=== PATIENT | female | born 1930 | race Caucasian/White ===

== ENCOUNTER 2016-12-06 23:20 | Inpatient (IN) | payer MEDICARE, MEDICAID, OTHER ==
[~2016-12-06] VITALS: Ht 152.4 cm; Wt 72.0 kg
[2016-12-06 23:24] VITALS: PULSE 42
[2016-12-06 23:30] VITALS: BP 166/85; PULSE 120; O2SAT 87
[2016-12-06] MEDS ORDERED: SODIUM CHLOR 0.9% 1000 ML INJ 1,000 ML IV ONE (23:33)
[2016-12-06 23:36] VITALS: BP 97/52; PULSE 72
[2016-12-06 23:41] LABS: AUTOMATED NEUTROPHIL # 12.3 TH/MM3 (1.8-7.7); BASOPHIL # 0.1 TH/MM3 (0-0.2); BASOPHIL % 0.5 % (0.0-2.0); EOSINOPHIL # 0.2 TH/MM3 (0-0.4); EOSINOPHIL % 1.2 % (0.0-4.0); HEMATOCRIT 43.4 % (35.0-46.0); LYMPH % 31.4 % (9.0-44.0); LYMPHOCYTE # 6.4 TH/MM3 (1.0-4.8); MEAN CORPUSCULAR HEMOGLOBIN 26.3 PG (27.0-34.0); MEAN CORPUSCULAR HGB CONC 30.3 % (32.0-36.0); MONO % 6.5 % (0.0-8.0); NEUT % 60.4 % (16.0-70.0); PLATELET COUNT 237 TH/MM3 (150-450); RED BLOOD COUNT 4.99 MIL/MM3 (4.00-5.30); RED CELL DISTRIBUTION WIDTH 18.2 % (11.6-17.2); WHITE BLOOD COUNT 20.3 TH/MM3 (4.0-11.0)
[2016-12-06] MEDS ORDERED: EPINEPHrine HCL (1:1000) 1 MG/ML VIAL ONE (23:41)
[2016-12-06 23:45] LABS: HEMO FLAGS AUTO DIFF; I-STAT POTASSIUM 4.3 MMOL/L (3.5-4.9)
[2016-12-06] MEDS ORDERED: SODIUM CHLORIDE 0.9% FLUSH 10 ML FLUSH IVF PRN (23:45)
[2016-12-06 23:46] VITALS: BP 62/35; PULSE 39; RESP 18; O2SAT 87
[2016-12-06 23:53] VITALS: BP 176/86; PULSE 148; O2SAT 94
[2016-12-06 23:54] LABS: APTT (PATIENT) 22.4 SEC (24.3-30.1); INTERNATIONAL NORMALIZED RATIO 0.9 RATIO; PROTHROMBIN TIME - PATIENT 10.4 SEC (9.8-11.6)
[2016-12-07] VITALS (36 sets, daily range): BP systolic 71–110; BP diastolic 51–66; PULSE 15–111; RESP 16–30; TEMP 98.6–103.2; O2SAT 88–100
[2016-12-07] MEDS ORDERED: PIPERACIL-TAZO 4.5 GM PREMIX 100 ML IV STA (00:05)
[2016-12-07] MEDS ORDERED: VANCOMYCIN INJ 1,000 MG in SODIUM CHLOR 0.9% 250 ML INJ 250 ML IV STA (00:05)
[2016-12-07 00:10] LABS: ATYPICAL LYMPHOCYTES 12 % (0-0); BANDS 2 % (0-6); BASOPHILS 1 % (0-2); NEUTROPHIL # MANUAL DIFF 13.6 TH/MM3 (1.8-7.7); POLYS (SEG NEUTROPHILS) 65 % (16-70); SCAN/DIFF FINAL DIFF MANUAL; WBC DIFF SAMPLE 100
[2016-12-07 00:11] LABS: PLATELET ESTIMATE SMEAR NORMAL (NORMAL); PLATELET MORPHOLOGY NORMAL (NORMAL)
[2016-12-07 00:13] LABS: MAGNESIUM 4.2 MG/DL (1.5-2.5)
[2016-12-07 00:14] LABS: BLOOD GAS VENOUS BASE EXCESS -6.1 mmol/L (-2-2); BLOOD GAS VENOUS HCO3 20 mmol/L (22-26); BLOOD GAS VENOUS O2 HGB SAT 46 % (70-76); BLOOD GAS VENOUS PCO2 43 mmHg (44-48); BLOOD GAS VENOUS PO2 29 mmHg (35-40); BLOOD GAS VENOUS pH 7.28 (7.360-7.400); TEMP CORR TO 98.6
[2016-12-07] MEDS ORDERED: SODIUM CHLOR 0.9% 1000 ML INJ 1,000 ML IV ONE (00:15)
[2016-12-07 00:16] LABS: CRITICAL VALUE YES; OXYGEN DEVICE VENTILATOR
[2016-12-07 00:17] LABS: DRAW SITE RFEM; FIO2 100 %; STAT NO; VENT SETTINGS AC/16/500/PEEP5
[2016-12-07 00:21] LABS: BLOOD GAS BASE EXCESS 0.7 mmol/L (-2-2); BLOOD GAS CARBOXYHEMOGLOBIN 1.4 % (0-4); BLOOD GAS HCO3 25 mmol/L (22-26); BLOOD GAS METHEMOGLOBIN 0.3 % (0-2); BLOOD GAS O2 HGB SATURATION 97 % (90-100); BLOOD GAS OXYGEN CONTENT 16.9 Vol % (12.0-20.0); BLOOD GAS PCO2 41 mmHg (38-42); BLOOD GAS PO2 119 mmHG (61-120); BLOOD GAS TOTAL HGB 12.3 G/DL (12.0-16.0); TEMP CORR TO 98.6
[2016-12-07] MEDS ORDERED: MIDAZOLAM HCL 5 MG/ML VIAL (1 ML) ONE ×2 (00:21→00:34)
--- NOTE | 2016-12-07 00:21 | RADRPT ---
EXAM DATE/TIME: 12/06/2016 23:47 [facility] COMPARISON: No previous studies available for comparison. INDICATIONS : E-T tube placement, STEMI Alert. MEDICAL HISTORY : None. SURGICAL HISTORY : None. ENCOUNTER: Initial ACUITY: 1 day PAIN SCORE: Non-responsive. LOCATION: Bilateral chest FINDINGS: ET tube is present with tip in the right main bronchus needs to be withdrawn by 1-2 cm. Slight bilate ral interstitial prominence is seen mainly in the lung bases may represent mild pulmonary edema. Tiny right pleural effusion is suspected. Hiatal hernia may be present and right lung base consolidation airspace in appearance is also suspected. The aorta is tortuous and the pulmonary vascularity appear prominent. Right hilar mass is difficult to exclude. CONCLUSION: Probable mild CHF and there is also consolidation right perihilar area and right lung base. ET tube n eeds to be withdrawn by 1-2 cm. Maryellen Hobson MD on December 07, 2016 at 0:18 Board Certified Radiologist. This report was verified electronically.
[2016-12-07 00:22] LABS: CRITICAL VALUE NO; OXYGEN DEVICE VENTILATOR
[2016-12-07 00:27] LABS: DRAW SITE LFEM; FIO2 100 %; NUMBER OF ARTERIAL PUNCTURES 1; STAT NO; VENT SETTINGS AC/16/500/PEEP5
--- NOTE | 2016-12-07 00:30 | HHI.HP ---
HPI Service Critical Care Medicine Primary Care Physician Unknown Admission Diagnosis cardiac arrest Diagnosis: Travel History International Travel<30 Days: No Contact w/Intl Traveler <30 Da: No Traveled to Known Affected Are: No Sepsis Criteria SIRS Criteria (2 or more): WBC > 59537, < 4000 or > 10% bands Severe Sepsis (+one): Organ Dysfunction, Acute Oliguria/Renal Failure Multiple Organ Dysfunction Syn: Evidence -2 organs failing Criteria Outcome: Meets SIRS criteria History of Present Illness 86 yo WF with PMH of COPD on 2 L home O2, CHF who is brought in by EVAC after initial call for lethargy. EVAC reported that she was in Torsades. They started to administer magnesium sulfate and administered partial dose when the IV blew. She was the shocked for Vtach. She was intubated after receiving Ativan 4 mg IV and etomidate 20 mg IV. She was then noted to be in asystole. She was given epinephrine and had ROSC. EKG upon arrival to the emergency department demonstrated an irregular rhythm that appears to be slow A. fib. Due to concern LBBB a STEMI alert was called. Patient subsequently had a recurrent cardiac arrest where she had bradycardia followed by asystole at 23: 25 for 10 minutes (received Epi x2, bicarb x1 amp, calcium carbonate x1) and then another code at 23:48 for 4 minutes (received epi x3, sodium bicarb x2 amps). Dr. Ball discussed with Dr. Hawley and he cancelled STEMI alert. Patient remains hypotensive post-arrest and is currently on Epinephrine drip and Dr. Ball has placed a R femoral central line. Her daughter states that yesterday patient was complaining of bilateral calf pain (new complaint) and took some Tramadol. Today she was getting ready for bed and ambulating with a walker but was not standing up completely straight and her daughter states "I knew something was wrong". She states that her fingers were cool and that she increased O2 from 2 L to 4L because O2 sat was not picking up. Daughter was urging her to go to the hospital. She then began "staring off" with "eyes flickering" so her daughter called 911. Her daughter states she was speaking with the patient during this time and patient was able to verbally respond saying "I am tired". Of note, patient has had recurrent hospitalizations for UTI and aspiration and has been on a pureed diet with thickened liquids however tonight she did eat some birthday cake for her daughter's birthday. Patient has one prior intubation for COPD in 2002. She was also hospitalized September 09 in [facility] for UTI and pneumonia for 9 days. She then went to rehab and was readmitted to [facility] for sepsis , UTI, pneumonia and was hospitalized for 2 weeks (on pressors for 3-4 days, not intubated). She was discharged to rehab and has now been home at her daughter's house since October 24, 2016. She was started on an unknown antibiotic and had taken one dose tonight. Her daughter states this was started in anticipation of urologic procedure by Dr. Gutierrez scheduled for later this week for intravesicular antibiotics. Patient has also had a cough x2 days. No fever. Her daughter states that she made a living will during a past hospitalization and said "she wanted everything done unless she had no hope of improving or if she was going to be a vegetable. She did not want to be kept alive retirement on a ventilator". Review of Systems ROS Limitations: Clinical Condition, Intubated Past Family Social History Allergies: Coded Allergies: No Known Allergies (Unverified , 12/06/16) Past Medical History COPD on 2 L home O2 (securities supervisor is Dr. Cervantes) CHF (cotton program technician is Dr. Yancey) Tobacco abuse Urinary incontinence Recurrent UTIs Recurrent aspiration Dysphagia on modified diet [place] of hearing PMD is Dr. Casillas Past Surgical History ORIF right ankle ORIF left shoulder Appendectomy Cholecystectomy Right hip arthroplasty Reported Medications Patient's daughter did not have a complete list of medications upon arrival to the ED. She states she will bring them in She recalls patient being on: Advair 250/50 2 puffs inhaled twice a day Bumex 0.5 mg by mouth twice a day KCl 10 mEq by mouth twice a day DuoNeb 4 times a day Family History Her mother of gallbladder cancer Father of intracerebral hemorrhage She has a sister who is living at age 97. Social History She is a long-term smoker who quit smoking in 2002 Does not use alcohol or illicit drugs Uses a walker at baseline She has 2 adult children, a son and a daughter, who were both present in the ED She lives with her daughter Her is in 2001 She has advanced directives that were reportedly filled out in [facility] in [place] Physical Exam Vital Signs Vital Signs Date Time Temp Pulse Resp B/P Pulse Ox O2 Delivery O2 Flow Rate FiO2 12/07/16 00:24 110 16 92/58 98 12/07/16 00:20 109 16 89/51 100 12/07/16 00:16 111 16 105/56 100 Ventilator 12/07/16 00:10 107 16 87/52 88 12/07/16 00:05 100 12/07/16 00:03 111 16 98/56 88 12/06/16 23:53 148 176/86 94 12/06/16 23:46 39 18 62/35 87 12/06/16 23:36 72 97/52 12/06/16 23:30 120 166/85 87 12/06/16 23:24 42 Physical Exam Drips: Epinephrine 2 mcg/m GENERAL: Elderly female who is orotracheally intubated. SKIN: Warm and dry. HEAD: Atraumatic. Normocephalic. EYES: Pupils 5 mm bilaterally and reactive to 2 mm. No scleral icterus. No injection or drainage. ENT: No nasal bleeding or discharge. Mucous membranes pink and moist. NECK: Trachea midline. No JVD. CARDIOVASCULAR: Tachycardic, regular, sinus rhythm on the monitor rate of 102. No murmurs rubs or gallops appreciated. RESPIRATORY: Orotracheally intubated, clear to auscultation without wheezes or Rales. GASTROINTESTINAL: Abdomen very soft without apparent tenderness, bowel sounds hypoactive, no hepato-splenomegaly appreciated : [place] in place with yellow urine output MUSCULOSKELETAL: Extremities without clubbing, cyanosis, or edema. Well-healed Scar overlying medial aspect of right ankle NEUROLOGICAL: Has facial grimace to central noxious stimuli, no eye opening, pupils reactive, positive cough, positive gag , withdrew without extremities to noxious stimuli, no abnormal response to Babinski, no clonus She was reexamined upon arrival to the [facility]. She did open her eyes to noxious stimuli and localized with BUE Laboratory Laboratory Tests Test 12/06/16 12/06/16 23:28 23:44 Prothrombin Time 10.4 Prothromb Time International 0.9 Ratio Activated Partial 22.4 Thromboplast Time White Blood Count 20.3 Red Blood Count 4.99 Hemoglobin 13.1 Bedside Hemoglobin 15.0 Hematocrit 43.4 Bedside Hematocrit 44.0 Mean Corpuscular Volume 87.0 Mean Corpuscular Hemoglobin 26.3 Mean Corpuscular Hemoglobin 30.3 Concent Red Cell Distribution Width 18.2 Platelet Count 237 Mean Platelet Volume 9.5 Neutrophils (%) (Auto) 60.4 Lymphocytes (%) (Auto) 31.4 Monocytes (%) (Auto) 6.5 Eosinophils (%) (Auto) 1.2 Basophils (%) (Auto) 0.5 Neutrophils # (Auto) 12.3 Lymphocytes # (Auto) 6.4 Monocytes # (Auto) 1.3 Eosinophils # (Auto) 0.2 Basophils # (Auto) 0.1 CBC Comment AUTO DIFF Differential Total Cells 100 Counted Neutrophils % (Manual) 65 Band Neutrophils % 2 Lymphocytes % 17 Monocytes % 3 Basophils % 1 Neutrophils # (Manual) 13.6 Differential Comment FINAL DIFF MANUAL Atypical Lymphocytes 12 Platelet Estimate NORMAL Platelet Morphology Comment NORMAL Red Cell Morphology Comment NORMAL Bedside Sodium 139 Bedside Potassium 4.3 Bedside Chloride 104 Bedside Blood Urea Nitrogen 24 Bedside Creatinine 1.1 Bedside Glucose 291 Calcium Level 8.7 Magnesium Level 4.2 Total Creatine Kinase 62 Troponin I 0.03 B-Type Natriuretic Peptide 118 Blood Gas Puncture Site RFEM Blood Gas Patient Temperature 98.6 Venous Blood pH 7.28 Venous Blood Partial Pressure 43 CO2 Venous Blood Partial Pressure 29 O2 Venous Blood HCO3 20 Venous Blood Oxygen Saturation 46 Venous Blood Oxygen Content 8.0 Venous Blood Base Excess -6.1 Oxygen Delivery Device VENTILATOR Blood Gas Ventilator Setting AC/16/500/PEEP5 Blood Gas Inspired Oxygen 100 Result Diagram: 12/06/16 6927 Assessment and Plan Assessment and Plan NEURO: Acute encephalopathy Hard of hearing - hearing aid in place left ear Fentanyl for analgosedation. Versed prn sedation. Target RASS -[address] brain as part of workup for cardiac arrest demonstrated chronic and small vessel ischemic changes with no hemorrhage Daily sedation vacation Upon reexamination patient opened her eyes and made purposeful movements with bilateral upper extremities towards endotracheal tube. No focal neurologic deficit is apparent. Would avoid induced therapeutic hypothermia in this patient at this time due to hemodynamic instability with recurrent cardiac arrest, concern for sepsis, spontaneously improving neurologic exam RESP: Acute respiratory failure COPD with 2 L home oxygen requirement Tobacco abuse Bronchiectasis Orotracheally intubated by EVAC prior to arrival with ETT near right mainstem , I have asked RT to pull ETT back 2 cm. Repeat CXR in am. ACV TV 450 R 22 PEEP 5icu v FIO2 100, f/u ABG. Chest x-ray 12/06/16ET tube is at right mainstem. Opacification right lower lobe with complete, it right pleural effusion, tortuous appearing aorta CT pulmonary angiogram - No PE. Right lower lobe consolidation and bronchiectasis. LLL consolidation. DuoNeb every 6 hours. Albuterol every 2 hours as needed. Daily SBT CV: Cardiac arrest - reportedly presenting rhythm of Torsades/V tach per EVAC. Asystole in ED x2 Chronic systolic heart failure Patient had Torsades/Vtach per EVAC but no shockable rhythm in ED. Will review complete med list when available to evalute for risk of Torsades. QTc not prolonged on EKG. Her presentation appears concerning for aspiration pneumonia and possible respiratory arrest given her 2 day h/o cough, hypoxia, and presence of sepsis. Will give ASA. Will inititate antiarrhythmic if note Vtach on monitoring. Serial cardiac markers, obtain 2-D echo, consult cardiology and followup recommendations. Norepinephrine to maintain mean arterial pressure greater than 65. Placed on Uli Trac for hemodynamic monitoring as she is no longer having significant ectopy. Wean off epinephrine. Serial lactic acid GI: Dysphagia Hiatal hernia Patient is on a modified diet (pured with thickened liquids). Will need speech therapy to evaluate swallow postextubation. FEN/RENAL: Acute kidney injury Hypermagnesemia (following Magnesium administration) Monitor intake and output, monitor electrolytes, replace electrolytes as indicated Received IV contrast 12/07. AVoid nephrotoxins. ID: Leukocytosis Acute aspiration pneumonia h/o recurrent UTI (uncertain MDRO history) Chest x-ray with right lower lobe infiltrate CT PA with RLL consolidation and bronchiectasis. Send sputum culture. Followup blood and urine culture. Empiric coverage with Zosyn, Vancomycin. HEME: Monitor CBC ENDO: Acute hyperglycemia Low-dose insulin sliding scale with bedside glucose every 6 hours PROPH: Protonix 40 mg IV daily for stress ulcer prophylaxis. SCDs for DVT prophylaxis. Heparin 5000 units subcutaneous twice a day for DVT prophylaxis ACCESS: Right femoral central venous line placed by Dr. Ball 12/07 #1 left femoral art line placed 12/07 #1 Patient's daughter and son were updated at bedside. They indicated that patient is full code Discussed with ED RN, discussed with ICU charge preparation techniciancareer coordinator time 60 minutes exclusive of separately billed procedures Ame Heck MD December 07, 2016 00:30
[2016-12-07] MEDS ORDERED: MIDAZOLAM HCL 2 MG/2 ML VIAL IV PUSH ONE (01:15)
[2016-12-07] MEDS ORDERED: RESP: ALBUTEROL 2.5 MG/3 ML NEB (PRN) INH (01:30)
[2016-12-07] MEDS ORDERED: fentaNYL DRIP 250 ML IV SCH (01:30)
[2016-12-07] MEDS ORDERED: MISCELLANEOUS NURSING INFORMATION XX SCH (01:30)
[2016-12-07] MEDS ORDERED: CHLORHEXIDINE GLUCONATE 2 % 1 PACK (2 CLOTHS) TOP PRN (01:30)
[2016-12-07] MEDS ORDERED: SODIUM CHLORIDE 0.9% FLUSH 10 ML FLUSH PRN (01:30)
[2016-12-07 01:32] LABS: BACTERIA, URINE RARE /hpf; BLOOD, URINE NEG (NEG); CALCIUM OXALATE CRYSTALS,URINE RARE /hpf; GLUCOSE,URINE NEG (NEG); HYALINE CAST, URINE INNUM /lpf (RARE); KETONE, URINE NEG (NEG); MUCUS URINE FEW /lpf (OCC); NITRITE,URINE NEG (NEG); PH, URINE 5.5 (5.0-8.5); SQUAMOUS EPITHELIAL CELL URINE 1 /hpf (0-5); URINE COLOR YELLOW (YELLW/STRAW)
[2016-12-07 01:33] LABS: COMMENT (UR) CATH-CULTURE IND; CULTURE IF INDICATED CATH CULTURE IND
[2016-12-07] MEDS ORDERED: EPINEPHrine (1:1000) INJ 2 MG in DEXTROSE 5% IN WATER INJ 248 ML IV SCH ×2 (01:45)
[2016-12-07 02:11] LABS: BLOOD GAS BASE EXCESS 2.1 mmol/L (-2-2); BLOOD GAS CARBOXYHEMOGLOBIN 1.5 % (0-4); BLOOD GAS HCO3 26 mmol/L (22-26); BLOOD GAS METHEMOGLOBIN 0.5 % (0-2); BLOOD GAS O2 HGB SATURATION 93 % (90-100); BLOOD GAS OXYGEN CONTENT 16.2 Vol % (12.0-20.0); BLOOD GAS PCO2 40 mmHg (38-42); BLOOD GAS PO2 72 mmHG (61-120); BLOOD GAS TOTAL HGB 12.4 G/DL (12.0-16.0); CRITICAL VALUE NO; TEMP CORR TO 98.6
[2016-12-07 02:12] LABS: DRAW SITE LT FEMORAL; FIO2 100 %; NUMBER OF ARTERIAL PUNCTURES 2; OXYGEN DEVICE PRVC/AC; STAT YES
[2016-12-07] MEDS ORDERED: Vancomycin Consult Pharmacy 1 EA OTHER SCH (02:15)
--- NOTE | 2016-12-07 02:25 | PD ---
HPI Chief Complaint: Altered Mental Status Time Seen by Provider: 23:31 Travel History International Travel<30 days: No Contact w/Intl Traveler<30days: No Traveled to known affect area: No History of Present Illness HPI 86 yo female was brought in by EVAC after initial call for altered mental status by sergo. EVAC reported that she was placed on the monitor upon arrival and was in Torsades. They started to administer magnesium sulfate and administered partial dose when the IV blew. She was then shocked for Vtach times 2. She was intubated after receiving Ativan 4 mg IV and etomidate 20 mg IV. She was then noted to be in asystole. She was given epinephrine and had ROSC after one round and CPR. Patient unable to provide history on initial history given critical condition. History obtained from ambulance team [facility] Past Medical History Narrative Medical Daughter states CHF, COPD, recent sepsis and frequent UTIs Medical History: Unable to Obtain Tetanus Vaccination: Unknown ?: Unknown Past Surgical History Surgical History: Unable to Obtain Social History Alcohol Use: No Tobacco Use: No Substance Use: No Allergies-Medications (Allergen,Severity, Reaction): Coded Allergies: No Known Allergies (Unverified , 12/06/16) Review of Systems ROS Limitations: Clinical Condition Physical Exam Exam Limitations: Clinical Condition Narrative General: In severe distress, focused exam performed Skin: No large rash, cool extremities Neck: Trachea midline Cardiovascular: Regular rate and rhythm Respiratory: Coarse bilaterally with endotracheal tube in place Abdomen: Soft, nondistended Neuro: Unresponsive Data Data Last Documented VS Vital Signs Date Time Temp Pulse Resp B/P Pulse Ox O2 Delivery O2 Flow Rate FiO2 12/07/16 00:10 107 16 87/52 88 12/07/16 00:05 100 12/06/16 23:20 15.00 Orders Troponin I (12/06/16 23:33) Ckmb (Isoenzyme) Profile (12/06/16 23:33) Complete Blood Count With Diff (12/06/16 23:33) I-Stat Profile (12/06/16 23:33) I-Stat Creatinine (12/06/16 23:33) Calcium (12/06/16 23:33) Magnesium (Mg) (12/06/16 23:33) Prothrombin Time / Inr (Pt) (12/06/16 23:33) Act Partial Throm Time (Ptt) (12/06/16 23:33) B-Type Natriuretic Peptide (12/06/16 23:33) Chest, Single Ap (12/06/16 23:33) Electrocardiogram (12/06/16 23:33) Oxygen Administration (12/06/16 23:33) Iv Access Insert/Monitor (12/06/16 23:33) Oximetry (12/06/16 23:33) Sodium Chlor 0.9% 1000 Ml Inj (Ns 1000 M (12/06/16 23:33) Sodium Chloride 0.9% Flush (Ns Flush) (12/06/16 23:45) Arterial Blood Gas (Abg) (12/06/16 ) Epinephrine (1:1000) Inj (Adrenalin (1:1 (12/07/16 01:45) Epinephrine (1:1000) Inj (Adrenalin (1:1 (12/06/16 23:41) Lactic Acid Sepsis Protocol (12/07/16 00:03) Urinalysis - C+S If Indicated (12/07/16 00:03) Blood Culture (12/07/16 00:03) Sodium Chlor 0.9% 1000 Ml Inj (Ns 1000 M (12/07/16 00:15) Vancomycin Inj (Vancomycin Inj) (12/07/16 00:05) Piperacil-Tazo 4.5 Gm Premix (Zosyn 4.5 (12/07/16 00:05) Admit Order (Ed Use Only) (12/07/16 00:09) Labs Laboratory Tests Test 12/06/16 12/06/16 12/06/16 23:28 23:44 23:54 Prothrombin Time 10.4 SEC Prothromb Time International 0.9 RATIO Ratio Activated Partial 22.4 SEC Thromboplast Time White Blood Count 20.3 TH/MM3 Red Blood Count 4.99 MIL/MM3 Hemoglobin 13.1 GM/DL Bedside Hemoglobin 15.0 G/DL Hematocrit 43.4 % Bedside Hematocrit 44.0 % Mean Corpuscular Volume 87.0 FL Mean Corpuscular Hemoglobin 26.3 PG Mean Corpuscular Hemoglobin 30.3 % Concent Red Cell Distribution Width 18.2 % Platelet Count 237 TH/MM3 Mean Platelet Volume 9.5 FL Neutrophils (%) (Auto) 60.4 % Lymphocytes (%) (Auto) 31.4 % Monocytes (%) (Auto) 6.5 % Eosinophils (%) (Auto) 1.2 % Basophils (%) (Auto) 0.5 % Neutrophils # (Auto) 12.3 TH/MM3 Lymphocytes # (Auto) 6.4 TH/MM3 Monocytes # (Auto) 1.3 TH/MM3 Eosinophils # (Auto) 0.2 TH/MM3 Basophils # (Auto) 0.1 TH/MM3 CBC Comment AUTO DIFF Differential Total Cells 100 Counted Neutrophils % (Manual) 65 % Band Neutrophils % 2 % Lymphocytes % 17 % Monocytes % 3 % Basophils % 1 % Neutrophils # (Manual) 13.6 TH/MM3 Differential Comment FINAL DIFF MANUAL Atypical Lymphocytes 12 % Platelet Estimate NORMAL Platelet Morphology Comment NORMAL Red Cell Morphology Comment NORMAL D-Dimer Quantitative (PE/DVT) 13.34 MG/L FEU Bedside Sodium 139 MMOL/L Bedside Potassium 4.3 MMOL/L Bedside Chloride 104 MMOL/L Bedside Blood Urea Nitrogen 24 MG/DL Bedside Creatinine 1.1 MG/DL Bedside Glucose 291 MG/DL Calcium Level 8.7 MG/DL Phosphorus Level 3.7 MG/DL Magnesium Level 4.2 MG/DL Total Creatine Kinase 62 U/L Troponin I 0.03 NG/ML B-Type Natriuretic Peptide 118 PG/ML Blood Gas Puncture Site RFEM LFEM Blood Gas Patient Temperature 98.6 98.6 Venous Blood pH 7.28 Venous Blood Partial Pressure 43 mmHg CO2 Venous Blood Partial Pressure 29 mmHg O2 Venous Blood HCO3 20 mmol/L Venous Blood Oxygen Saturation 46 % Venous Blood Oxygen Content 8.0 Vol % Venous Blood Base Excess -6.1 mmol/L Oxygen Delivery Device VENTILATOR VENTILATOR Blood Gas Ventilator Setting AC/16/500/PEEP5 AC/16/500/PEEP5 Blood Gas Inspired Oxygen 100 % 100 % Blood Gas HCO3 25 mmol/L Blood Gas Base Excess 0.7 mmol/L Blood Gas Oxygen Saturation 97 % Arterial Blood pH 7.40 Arterial Blood Partial 41 mmHg Pressure CO2 Arterial Blood Partial 119 mmHG Pressure O2 Arterial Blood Oxygen Content 16.9 Vol % Arterial Blood 1.4 % Carboxyhemoglobin Arterial Blood Methemoglobin 0.3 % Blood Gas Hemoglobin 12.3 G/DL MDM Medical Decision Making Medical Screen Exam Complete: Yes Emergency Medical Condition: Yes Medical Record Reviewed: Yes (no records here) Interpretation(s) Initial EKG showed interventricular rhythm that appeared irregular with concern for elevation in inferior leads that was more pronounced on the monitor- discussed with Dr. Marshall and he reviewed images and history and STEMI alert was canceled CBC & BMP Diagram 12/06/16 23:28 Last 24 hours Impressions Chest X-Ray 12/06/16 6253 Signed Impressions: Service Date/Time: Tuesday, December 06, 2016 23:47 - CONCLUSION: Probable mild CHF and there is also consolidation right perihilar area and right lung base. ET tube needs to be withdrawn by 1-2 cm. Maryellen Hobson MD Endotracheal tube was withdrawn after chest x-ray review During code vbg showed pH of 7.287 additional amp of bicarbonate was given in addition to to prior exams during code istats noted abg after resuscitation shows no significant acidosis with good PO2 and PCO2 Differential Diagnosis CA, septic shock, hemorrhagic shock, cardiogenic shock, intracranial bleed, renal failure with electrolyte abnormality... Narrative Course Patient arrived with return of spontaneous circulation after asystole arrest with initial torsades and V. tach. Initial ER EKG was concerning for ST elevation in inferior leads so STEMI alert was called. Patient subsequently had bradycardia with 0.5 mg of atropine given 2 then recurrent cardiac arrest where she had pea and received Epi x2, bicarb x1 amp, calcium carbonate x1 and then another pea code at 23:48 for 4 minutes (received epi x3, sodium bicarb x2 amps). Patient remained hypotensive post-arrest and I started Epinephrine drip and I placed a right femoral central line for further infusion after discussion with daughter that she was wanting to proceed with aggressive care. Dr. Marshall reviewed EKG and STEMI alert was canceled. Daughter also provided history and stated that she has been hospitalized at [facility] on multiple occasions for UTI and sepsis. Critical Care Narrative Aggregate critical care time was 95 minutes. Time to perform other separately billable procedures was not included in the critical care time. My time did not include minutes spent treating any other patients simultaneously or on activities that did not directly contribute to the patient's treatment. The services I provided to this patient were to treat and/or prevent clinically significant deterioration that could result in: I provided critical care services requiring my management, as noted below: Chart data review, documentation time, medication orders and management, vital sign assessments/reviewing monitor data, ordering and reviewing lab tests, ordering and interpreting/reviewing x-rays and diagnostic studies, care of the patient and discussion of the patient with the admitting physicians. Procedures Procedure Narrative CENTRAL VENOUS LINE placed after discussion with daughter: The site was prepped with ChloraPrep and sterilely draped. Patient given Versed. The deep vein was cannulated using normal Seldinger technique. A central line was placed in the right femoral site and secured with simple interrupted suture. The site was sterilely dressed. Sepsis Criteria SIRS Criteria (2 or more): Temp > 100.9 or < 96.8, WBC > 39466, < 4000 or > 10 % bands Sepsis Criteria (SIRS+source): Infect source susp/known Severe Sepsis (+one): Lactate >2 Septic Shock Criteria: Lactic acid >=4 Criteria Outcome: Meets septic shock criteria Physician Communication Physician Communication dr marshall reviewed ekg and stated unsure exact but not STEMI on review dr wiggins agrees to admit Diagnosis Primary Impression: Cardiopulmonary arrest with successful resuscitation Additional Impressions: Septic shock PEA (Pulseless electrical activity) Bradycardia Lactic acidosis Admitting Information Admitting Physician Requests: Admit Italia Ball MD December 07, 2016 02:25
[2016-12-07] MEDS ORDERED: IOHEXOL 350 MG/ML 10 ML VIAL (for RAD DIAG) IV ONE (02:32)
--- NOTE | 2016-12-07 02:36 | RADRPT ---
EXAM DATE/TIME: 12/07/2016 02:21 [facility] COMPARISON: No previous studies available for comparison. INDICATIONS : Altered mental status. Post-code. RADIATION DOSE: 56.35 CTDIvol (mGy) MEDICAL HISTORY : Congestive hearrt failure. Chronic obstructive pulmonary disease. SURGICAL HISTORY : None. ENCOUNTER: Initial ACUITY: 1 day PAIN SCALE: Non-responsive LOCATION: cranial TECHNIQUE: Multiple contiguous axial images were obtained of the head. Using automated exposure control and adj ustment of the mA and/or kV according to patient size, radiation dose was kept as low as reasonably a chievable to obtain optimal diagnostic quality images. FINDINGS: There is no evidence for intracranial hemorrhage, mass effect, mass lesions, or edema. The visualize d bony structures appear intact. Moderate degree of brain atrophy is seen. Moderate periventricular white matter changes are seen nonspecific mostly consistent with chronic small vessel ischemic change s. There are no signs of acute infarction for technique. CONCLUSION: Chronic and small vessel ischemic changes without any evidence for acute hemorrhage o r mass effect. Maryellen Hobson MD on December 07, 2016 at 2:33 Board Certified Radiologist. This report was verified electronically.
--- NOTE | 2016-12-07 02:41 | RADRPT ---
EXAM DATE/TIME: 12/07/2016 02:27 [facility] COMPARISON: No previous studies available for comparison. INDICATIONS : Respiratory distress. IV CONTRAST: 75 cc Omnipaque 350 (iohexol) IV RADIATION DOSE: 13.11 CTDIvol (mGy) MEDICAL HISTORY : None SURGICAL HISTORY : None. ENCOUNTER: Initial ACUITY: 1 day PAIN SCALE: Non-responsive LOCATION: chest TECHNIQUE: Volumetric scanning of the chest was performed using a pulmonary embolism protocol MIP images were re constructed. Using automated exposure control and adjustment of the mA and/or kV according to patien t size, radiation dose was kept as low as reasonably achievable to obtain optimal diagnostic quality images. FINDINGS: There is no evidence for PE for technique. There is airspace consolidation in both lung bases worse o n the right. CONCLUSION: Bibasilar consolidation worse on the right. Maryellen Hobson MD on December 07, 2016 at 2:39 Board Certified Radiologist. This report was verified electronically.
[2016-12-07 03:02] LABS: LACTIC ACID GHOST NOT REPORTABLE
[2016-12-07] MEDS: CHLORHEXIDINE GLUCONATE 2 % 1 PACK (2 CLOTHS) TOP SCH (03:34)
[2016-12-07] MEDS: SODIUM CHLOR 0.9% 1000 ML INJ 1,000 ML IV SCH ×2 (03:34→11:43)
[2016-12-07] MEDS ORDERED: ATROPINE SULFATE 1 MG/10 ML SYRINGE IV ONE (05:00)
[2016-12-07] MEDS ORDERED: SODIUM BICARBONATE 8.4% INJ 50 MEQ/50 ML SYR IV ONE (05:00)
[2016-12-07] MEDS ORDERED: EPINEPHrine HCL (1:10,000) 1 MG/10 ML SYRINGE IV ONE (05:00)
[2016-12-07] MEDS ORDERED: CALCIUM CHLORIDE 10% SOLN 1 GRAM/10 ML SYR IV ONE (05:00)
[2016-12-07] MEDS: NOREPINEPHRINE-DEXTROSE DRIP 250 ML IV SCH ×2 (05:42→10:40)
[2016-12-07] MEDS ORDERED: TERBUTALINE INJ 1 MG/ML AMP SQ PRN (05:45)
--- NOTE | 2016-12-07 05:55 | PD.PROCEDR ---
Procedure Note Procedure DATE: 12/07/16 PROCEDURE: Left femoral arterial catheter placement INDICATION: Hemodynamic monitoring of shock. DETAILS OF PROCEDURE The patient was placed in supine position. The skin was cleansed with Chloraprep. Additional barrier precautions included large sterile drape, sterile gloves, sterile gown, face mask, and hat. 1% lidocaine was used for local anesthesia. Under direct ultrasound guidnce and on the 2nd attempt, the artery was accessed with an introducer needle. The guide wire was advanced. Using Seldinger technique 16 gauge arterial catheter was placed. The guide wire was removed. The catheter was connected to a transducer line and flushed with saline. The video monitor displayed normal arterial wave forms. The catheter was secured with 2-0 silk. A sterile dressing with antibiotic disc was applied. ESTIMATED BLOOD LOSS: minimal COMPLICATIONS: None Ame Heck MD December 07, 2016 05:55
--- NOTE | 2016-12-07 07:54 | HHI.CCPN ---
Subjective Remarks/Hospital Course 86 yo WF with PMH of COPD on 2 L home O2, CHF who is brought in by [facility] after initial call for lethargy. [facility] reported that she was in Torsades. They started to administer magnesium sulfate and administered partial dose when the IV blew. She was the shocked for Vtach. She was intubated after receiving Ativan 4 mg IV and etomidate 20 mg IV. She was then noted to be in asystole. She was given epinephrine and had ROSC. EKG upon arrival to the emergency department demonstrated an irregular rhythm that appears to be slow A. fib. Due to concern LBBB a STEMI alert was called. Patient subsequently had a recurrent cardiac arrest where she had bradycardia followed by asystole at 23: 25 for 10 minutes (received Epi x2, bicarb x1 amp, calcium carbonate x1) and then another code at 23:48 for 4 minutes (received epi x3, sodium bicarb x2 amps). Dr. Ball discussed with Dr. Hawley and he cancelled STEMI alert. Patient remains hypotensive post-arrest and is currently on Epinephrine drip and Dr. Ball has placed a R femoral central line. Her daughter states that yesterday patient was complaining of bilateral calf pain (new complaint) and took some Tramadol. Today she was getting ready for bed and ambulating with a walker but was not standing up completely straight and her daughter states "I knew something was wrong". She states that her fingers were cool and that she increased O2 from 2 L to 4L because O2 sat was not picking up. Daughter was urging her to go to the hospital. She then began "staring off" with "eyes flickering" so her daughter called 911. Her daughter states she was speaking with the patient during this time and patient was able to verbally respond saying "I am tired". Of note, patient has had recurrent hospitalizations for UTI and aspiration and has been on a pureed diet with thickened liquids however tonight she did eat some birthday cake for her daughter's birthday. Patient has one prior intubation for COPD in 2002. She was also hospitalized September 09 in [facility] for UTI and pneumonia for 9 days. She then went to rehab and was readmitted to [facility] for sepsis , UTI, pneumonia and was hospitalized for 2 weeks (on pressors for 3-4 days, not intubated). She was discharged to rehab and has now been home at her daughter's house since October 24, 2016. She was started on an unknown antibiotic and had taken one dose tonight. Her daughter states this was started in anticipation of urologic procedure by Dr. Gutierrez scheduled for later this week for intravesicular antibiotics. Patient has also had a cough x2 days. No fever. Her daughter states that she made a living will during a past hospitalization and said "she wanted everything done unless she had no hope of improving or if she was going to be a vegetable. 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 SUBJ 12/07: Remains intubated, not on sedation. epinephrine weaned off. Levophed at 5 mcg/min. Opens eyes to stimulation. Weakly follows commands. Family at bedside. Cardiac arrest possible not primary but secondary to severe walt pneumonia, sev sepsis and hypoxia Objective Vital Signs Date Time Temp Pulse Resp B/P Pulse Ox O2 Delivery O2 Flow Rate FiO2 12/07/16 06:00 93 12/07/16 06:00 24 110/51 100 101/58 12/07/16 05:08 100 12/07/16 04:00 98.8 12/07/16 01:45 Ventilator 12/06/16 23:20 15.00 Result Diagram: 12/06/16 2328 Other Results Laboratory Tests Test 12/06/16 12/06/16 12/07/16 23:44 23:54 01:59 Blood Gas Puncture Site RFEM LFEM LT FEMORAL Blood Gas Patient Temperature 98.6 98.6 98.6 Venous Blood pH 7.28 (7.360-7.400) Venous Blood Partial Pressure 43 mmHg (44-48) CO2 Venous Blood Partial Pressure 29 mmHg (35-40) O2 Venous Blood HCO3 20 mmol/L (22-26) Venous Blood Oxygen Saturation 46 % (70-76) Venous Blood Oxygen Content 8.0 Vol % (9.0-17.0) Venous Blood Base Excess -6.1 mmol/L (-2-2) Oxygen Delivery Device VENTILATOR VENTILATOR PRVC/AC Blood Gas Ventilator Setting AC/16/500/PEEP5 AC/16/500/PEEP5 Blood Gas Inspired Oxygen 100 % 100 % 100 % Blood Gas HCO3 25 mmol/L 26 mmol/L (22-26) (22-26) Blood Gas Base Excess 0.7 mmol/L 2.1 mmol/L (-2-2) (-2-2) Blood Gas Oxygen Saturation 97 % (90-100) 93 % (90-100) Arterial Blood pH 7.40 7.43 (7.380-7.420) (7.380-7.420) Arterial Blood Partial 41 mmHg (38-42) 40 mmHg (38-42) Pressure CO2 Arterial Blood Partial 119 mmHG 72 mmHG Pressure O2 (61-120) (61-120) Arterial Blood Oxygen Content 16.9 Vol % 16.2 Vol % (12.0-20.0) (12.0-20.0) Arterial Blood 1.4 % (0-4) 1.5 % (0-4) Carboxyhemoglobin Arterial Blood Methemoglobin 0.3 % (0-2) 0.5 % (0-2) Blood Gas Hemoglobin 12.3 G/DL 12.4 G/DL (12.0-16.0) (12.0-16.0) Objective Remarks Drips: Norepinephrine 5 mcg/m GENERAL: Elderly female who is orotracheally intubated. SKIN: Warm and dry. HEAD: Atraumatic. Normocephalic. EYES: Pupils 5 mm bilaterally and reactive to 2 mm. No scleral icterus. No injection or drainage. ENT: No nasal bleeding or discharge. Mucous membranes pink and moist. NECK: Trachea midline. No JVD. CARDIOVASCULAR: Tachycardic, regular, sinus rhythm. No murmurs rubs or gallops appreciated. QTC normal on EKG RESPIRATORY: Orotracheally intubated, clear to auscultation without wheezes or Rales. GASTROINTESTINAL: Abdomen soft without apparent tenderness, bowel sounds hypoactive, no hepato-splenomegaly appreciated : [place] in place with yellow urine output MUSCULOSKELETAL: Extremities without clubbing, cyanosis, or edema. Well-healed Scar overlying medial aspect of right ankle NEUROLOGICAL: Opens eyes to stimulation. Weakly follows commands by squeezing hands, pupils reactive. Moving all extremities spontaneously A/P Assessment and Plan NEURO: Acute encephalopathy Hard of hearing - hearing aid in place left ear Fentanyl for analgosedation. Versed prn sedation. Currently off all sedation Target RASS -2. Daily sedation vacation CT brain demonstrated chronic and small vessel ischemic changes with no hemorrhage Improving neuro exam. There was indication for induced therapeutic hypothermia on arrival RESP: Acute hypoxemia respiratory failure Bilateral lower lobe pneumonia R>L Chronic aspiration COPD with 2 L home oxygen requirement Tobacco abuse Orotracheally intubated by [facility] prior to arrival wit ETT near right mainstem, now pulled back ACV TV 450 R 22 PEEP 5. Titrate FiO2 to keep SaO2>88% DuoNeb q6 and PRN ABX Zosyn, vanc and azithromycin Consult pulmonology Dr. Richter CV: Cardiac arrest - reportedly presenting rhythm of Torsades/V tach per [facility]. Asystole in ED x2 Chronic systolic heart failure Opacification right lower lobe with complete, it right pleural effusion, tortuous appearing aorta Serial cardiac markers, obtain 2-D echo, consult cardiology Cardiac arrest appears secondary to severe pneumonia, hypoxia and sepsis GI: Dysphagia Hiatal hernia NPO. IV Protonix Patient is on a modified diet (pured with thickened liquids). Will need speech therapy to evaluate swallow postextubation FEN/RENAL: Acute kidney injury Hypomagnesemia Monitor I/O ID: Septic shock Multilobar pneumonia - Continue Zosyn Vanc and azithromycin - F/U culture - CT R>L lower lobe infiltrates ENDO: Acute hyperglycemia -SSI - Electrolyte replacement per protocol PROPH: -Lovenox, PPI ACCESS: -Right femoral central venous line placed by Dr. Ball 12/07 #1 Critical care time 60 minutes exclusive of separately billed procedures Valerie Lopez MD December 07, 2016 07:54
[2016-12-07] MEDS: PANTOPRAZOLE SODIUM 40 MG VIAL IV SCH (08:05)
[2016-12-07] MEDS: ACETAMINOPHEN 325 MG TAB PO PRN (08:05)
[2016-12-07] MEDS: PIPERACIL-TAZO 4.5 GM PREMIX 100 ML IV SCH ×3 (08:05→20:16)
[2016-12-07] MEDS: SODIUM CHLORIDE 0.9% FLUSH 10 ML FLUSH SCH ×2 (08:06→20:16)
[2016-12-07] MEDS: DOCUSATE SODIUM 100 MG CAP PO SCH ×2 (08:06→20:16)
[2016-12-07] MEDS: CHLORHEXIDINE 0.12% (ORAL KIT) 15 ML CUP MT SCH ×2 (08:06→20:19)
[2016-12-07] MEDS: RESP: ALBUTEROL 2.5 MG/IPRATROPIUM 0.5 MG NEB (SCH) NEB ×3 (09:19→20:59)
--- NOTE | 2016-12-07 09:39 | RADRPT ---
EXAM DATE/TIME: 12/07/2016 08:25 [facility] COMPARISON: CHEST SINGLE AP, December 06, 2016, 23:47. INDICATIONS : Respiratory disease. Followup consolidation. MEDICAL HISTORY : None. SURGICAL HISTORY : None. ENCOUNTER: Subsequent ACUITY: 2 days PAIN SCORE: Non-responsive. LOCATION: chest FINDINGS: A single AP semierect view of the chest was obtained and demonstrates endotracheal tube in place with the tip now approximately 4-5 cm above the kim. A nasogastric tube remains in place with the side port projected over the distal esophagus. The heart size is at the upper limits of normal and there atherosclerotic changes again noted in the aorta with dilatation and calcification. A small right eff usion is noted and there is consolidation remaining at the right lung base. There is mild patchy opa city in the left lung base with mild blunting of the costophrenic angle. CONCLUSION: 1. Consolidative opacity remains in the right lung base with mild patchy opacity in the left lung bas e. 2. Small bilateral pleural effusions right greater than left. 3. The nasogastric tube remains in place with the distal side-port projected over the distal esophagu s. This could be advanced at least 5 cm. Arron Bennett MD on December 07, 2016 at 9:35 Board Certified Radiologist. This report was verified electronically.
[2016-12-07] MEDS ORDERED: ASPIRIN 81 MG CHEW TAB G-TUBE ONE (09:45)
[2016-12-07] MEDS ORDERED: DEXTROSE 50% IN WATER 50 ML VIAL(D50) IV PRN (09:45)
[2016-12-07] MEDS ORDERED: GLUCAGON 1 MG/ML VIAL OTHER PRN (09:45)
[2016-12-07] MEDS ORDERED: ADVA250A INH (10:11)
[2016-12-07] MEDS ORDERED: IPRAAER INH (10:12)
[2016-12-07] MEDS ORDERED: MEMA28CA PO (10:21)
[2016-12-07] MEDS: AZITHROMYCIN INJ 500 MG in SODIUM CHLOR 0.9% 250 ML INJ 250 ML IV SCH (10:33)
[2016-12-07] MEDS: HEPARIN SODIUM - SQ 10,000 UNITS/ML VIAL SQ SCH ×2 (10:40→20:15)
[2016-12-07] MEDS: INSULIN ASPART SUPPLEMENTAL SCALE SQ SCH ×3 (10:42→20:18)
[2016-12-07] MEDS ORDERED: BUPR150T12 PO (11:10)
[2016-12-07] MEDS ORDERED: BUSP5TAB PO (11:10)
[2016-12-07] MEDS ORDERED: DONE10TA7 PO (11:10)
[2016-12-07] MEDS ORDERED: BUME0.5T PO (11:12)
[2016-12-07] MEDS ORDERED: OMEP20CA2 PO (11:21)
[2016-12-07] MEDS ORDERED: NATU32.5 PO (11:23)
[2016-12-07] MEDS ORDERED: MIRA25TA PO (11:24)
[2016-12-07] MEDS ORDERED: SODIUM CHLORID 0.9% 500 ML INJ 500 ML IV ONE (11:30)
[2016-12-07] MEDS ORDERED: METH1TAB2 PO (11:40)
[2016-12-07] MEDS ORDERED: PRESCAP5 PO (11:41)
[2016-12-07] MEDS ORDERED: ASCO500C PO (11:47)
[2016-12-07] MEDS ORDERED: D400400C PO (11:51)
[2016-12-07] MEDS ORDERED: ZINC50TA PO (11:52)
[2016-12-07] MEDS ORDERED: POLY17S PO (11:52)
[2016-12-07] MEDS ORDERED: DOCU100C PO (11:53)
[2016-12-07] MEDS ORDERED: VITATAB43 PO (11:55)
[2016-12-07] MEDS ORDERED: POTA10CA PO (11:58)
--- NOTE | 2016-12-07 12:33 | EC ---
Study Study Date:12/07/2016 STUDY CONCLUSIONS SUMMARY - Procedure narrative: Transthoracic echocardiography. Image quality was poor. The study was technically limited due to poor acoustic window availability. Scanning was performed from the parasternal, apical, and subcostal acoustic windows. - Left ventricle: The cavity size was dilated. Wall thickness was normal. Systolic function was severely reduced by visual assessment. The estimated ejection fraction was in the range of 25% to 30%. Hypokinesis of the mid-distal anteroseptal, anterior, anterolateral, and apical myocardium. - Aortic valve: Valve area: 4.05cm^2(VTI). Valve area: 4cm^2 (Vmax). - Mitral valve: Calcified annulus. - Right atrium: The atrium was mildly dilated. - Tricuspid valve: Mild-moderate regurgitation. - Pulmonary arteries: Systolic pressure was moderately increased. PA peak pressure: 52mm Hg (S). If LV function is below 40, please consider prescribing an ACEI or ARB or document rationale for non-use. PROCEDURE DATA STUDY STATUS: Elective. Procedure: Transthoracic echocardiography. Image quality was poor. The study was technically limited due to poor acoustic window availability. Scanning was performed from the parasternal, apical, and subcostal acoustic windows. Study completion: The patient tolerated the procedure well. Transthoracic echocardiography. M-mode, complete 2D, complete spectral Doppler, and color Doppler. Height: Height: 60in. Weight: Weight: 164.7lb. Body mass index: BMI: 32.2kg/m^2. Body surface area: BSA: 1.72m^2. Patient status: Inpatient. CARDIAC ANATOMY LEFT VENTRICLE: The cavity size was dilated. Wall thickness was normal. Systolic function was severely reduced by visual assessment. The estimated ejection fraction was in the range of 25% to 30%. Regional wall motion abnormalities: Hypokinesis of the mid-distal anteroseptal, anterior, anterolateral, and apical myocardium. AORTIC VALVE: Probably trileaflet; mildly thickened leaflets. Doppler: Transvalvular velocity was within the normal range. There was no stenosis. No regurgitation. Valve area: 4.05cm^2(VTI). Indexed valve area: 2.35cm^2/m^2 (VTI). Valve area: 4cm^2 (Vmax). Indexed valve area: 2.33cm^2/m^2 (Vmax). Mean gradient: 3mm Hg (S). AORTA: Aortic root: The aortic root was normal in size. MITRAL VALVE: Calcified annulus. Doppler: Transvalvular velocity was within the normal range. There was no evidence for stenosis. Trace regurgitation. LEFT ATRIUM: The atrium was normal in size. RIGHT VENTRICLE: The cavity size was normal. Wall thickness was normal. PULMONIC VALVE: Doppler: Transvalvular velocity was within the normal range. There was no evidence for stenosis. No regurgitation. TRICUSPID VALVE: Structurally normal valve. Doppler: Transvalvular velocity was within the normal range. Mild-moderate regurgitation. PULMONARY ARTERY: Systolic pressure was moderately increased. RIGHT ATRIUM: The atrium was mildly dilated. PERICARDIUM: There was no pericardial effusion. SYSTEMIC VEINS: Inferior vena cava: The vessel was normal in size. Patient weight: 164.7lb _Ejection fraction:_ 65-75% _Fractional shortening:_ 32% up to 5Kg 5-11.5Kg 11.6-22.9Kg 23-45Kg 45-57Kg Aortic Root 7-13 <17 13-22 17-27 17-27 LA diam 6-13 <23 24-38 33-47 37-40 RVID 10-17 7-15 7-15 7-18 8-17 LVIDd 12-22 <32 24-38 33-47 37-40 LVPW 2-4 3-6 5-7 6-8 7-8 IVS 2-4 3-6 5-7 6-8 7-8 BASIC MEASUREMENTS ADULT NORMAL Aortic valve Leaflet separation 17 mm 15-26 Aorta Root diameter, ED 30 mm BASIC MEASUREMENTS ADULT NORMAL Aortic valve Leaflet separation 17 mm 15-26 DOPPLER MEASUREMENTS ADULT NORMAL Main pulmonary artery Pressure, S *52 mm Hg =30 Aortic valve Peak velocity, S 114 cm/s Mean velocity, S 77.6 cm/s VTI, S 14.4 cm Mean gradient, S 3 mm Hg Valve area, VTI 4.05 cm^2 Valve area index, VTI 2.35 cm^2/m^2 Valve area, Vmax 4 cm^2 Valve area index, Vmax 2.33 cm^2/m^2 Mitral valve Peak E-wave velocity 35.3 cm/s Peak A-wave velocity 79 cm/s Deceleration time *99 ms 150-230 Peak E/A ratio 0.4 Tricuspid valve Regurgitant peak velocity 323 cm/s Peak RV-RA gradient, S 42 mm Hg Maximal regurgitant velocity 323 cm/s Systemic veins Estimated CVP 10 mm Hg Right ventricle RV pressure, S *52 mm Hg <30 LEGEND: Mean values are shown as u=mean value. Asterisk (*) gong values outside specified normal range. Prepared and signed by Trevor Israel [id number]
--- NOTE | 2016-12-07 14:56 | PD.CONS ---
Consult Service Palliative Care . Consult Requested By Dr. Ariadna Berger . Primary Care Physician Unknown . Reason for Consultation a. To assist with evaluation and management of symptoms including: dyspnea, pain, weakness. b. To assist medical decision maker(s) with: better understanding of current medical conditions; weighing benefits/burdens of medical treatment options; making medical treatment decisions. . (TUCKERETHAN) HPI History of Present Illness Ms. Santana is an 86 year old female with past medical history of oxygen dependent COPD, CHF, dementia, urinary incontinence, dysphagia, recurrent aspiration and UTIs and tobacco abuse. Patient was intubated in 2002 secondary to COPD. Notes indicate her daughter reported patient made a living will during a past hospitalization and said "she wanted everything done unless she had no hope of improving or if she was going to be a vegetable. She did not want to be kept alive alf on a ventilator." Previously hospitalized September 09 in [facility] for UTI and pneumonia for 9 days. She went to rehab and was readmitted to for sepsis , UTI, pneumonia and was hospitalized for 2 weeks (on pressors for 3-4 days, not intubated). She was discharged to rehab and has now been home at her daughter's house since October 24, 2016. She was started on an unknown antibiotic and had taken one dose before coming to emergency room here. Her daughter reported this was started in anticipation of urologic procedure by Dr. Gutierrez scheduled for later this week for intravesicular antibiotics. Daughter reported new onset bilateral calf pain in the 24 hours prior to presentation. Patient was having difficulty ambulating with a walker, was not standing completely straight, daughter felt "something was wrong." Additional findings included skin cool to touch, oxygen increased from 2 to 4 L as pulse oximeter was having difficulty obtaining numbers. Patient has also had a cough x2 days. No fever. Patient presented to [facility] emergency department on 12/06/16 via EVAC found in [place], magnesium sulfate was given until IV blew. She was shocked for V. Tach x 2. Intubated emergently, then noted to be in asystole, given epinephrine with ROSC. EKG upon arrival to the emergency department demonstrated an irregular rhythm that appeared to be slow Atrial Fibrillation. Due to concern LBBB a STEMI alert was called. Patient subsequently had a recurrent cardiac arrest where she had bradycardia followed by asystole at 23: 25 for 10 minutes (received Epi x2, bicarb x1 amp, calcium carbonate x1) and then another code at 23:48 for 4 minutes (received epi x3, sodium bicarb x2 amps ). Cardiology cancelled STEMI alert. Patient remained hypotensive post-arrest and is currently on Epinephrine drip. Initial findings: * WBC 20.3, hemoglobin 13.1, hematocrit 43.4, platelet count to 37, neutrophil 60.4% * PT 10.4, INR 0.9, PTT 22.4 * sodium 139, potassium 4.3, chloride 104, BUN 24, creatinine 1.1, glucose 291, calcium 8.7, magnesium 4.2 * total creatine kinase 62, troponin 0.03 * BNP 118 * chest x-ray mild CHF, consolidation right perihilar and right lung base * CT head chronic and small vessel ischemic changes without evidence of acute hemorrhage or mass effect. * CTA - bibasilar consolidation worse on right. * Echocardiogram - EF 25 30%, mild to moderate tricuspid regurgitation, systolic pressure moderately increased, peak pressure 52 mmHg Patient remain intubated on ICU on Levophed. WBC 20.3, hemoglobin 13.1, hematocrit 43.4, platelet count 237, neutrophils 60.4. Urinalysis positive trace leukocyte esterase, WBC, mucus, culture pending. Urine and blood cultures pending. Seen and examined in ICU, she opens eyes briefly to voice. She nods yes to pain in chest and throat, no to pain in back or abdomen. She wiggles toes on command with slight delay. No family at bedside during my visit. Cardiology, Dr. Yancey was consulted for evaluation post cardiac arrest with underlying cardiomyopathy and COPD/ resp failure and pneumonia. Overall prognosis is poor per cardiology. Discussed with Dr. Berger, it is uncertain if patient will be able to be medically extubated in the coming days. Palliative care is consulted to assist with clarification of treatment goals. . Function/Cognitive Trajectory Dementia patient lives with her daughter, recurrent admissions for UTI, aspiration pneumonia, sepsis on pureed diet. Was ambulating with a walker prior. She was able to make her needs known. Mild dementia with some short and alf memory loss. Recently completed rehab at home post last hospitalization. . (ETHAN CEBALLOS-Usha) Review of Systems Constitutional: COMPLAINS OF: Fatigue, Weight loss, Change in appetite ( decreased) Respiratory: COMPLAINS OF: Shortness of breath Cardiovascular: COMPLAINS OF: Chest pain, Dyspnea on Exertion Hematologic/Lymphatics: COMPLAINS OF: Bruising Neurologic: COMPLAINS OF: Poor Balance (ambulated with walker) Psychiatric: COMPLAINS OF: Confusion (ETHAN CEBALLOS) Past Family Social History Coded Allergies: Codeine (Verified Allergy, Severe, Vomiting, 12/07/16) Reported by daughter Sulfa (Unverified Allergy, Unknown, 12/07/16) Reported by daughter *MDRO Multi-Drug Resistant Organism (Verified Adverse Reaction, Unknown, ) MRSA PCR Positive 12/07/16 Past Medical History COPD on 2 L home O2 (refrigeration repair supervisor is Dr. Cervantes) Dementia CHF (hemmer automatic is Dr. Yancey) Tobacco abuse Urinary incontinence Recurrent UTIs Recurrent aspiration Dysphagia on modified diet [place] of hearing . Past Surgical History ORIF right ankle ORIF left shoulder Appendectomy Cholecystectomy Right hip arthroplasty . Reported Medications * Bupropion 150 mg PO daily * buspirone 2.5 mg PO daily * Mirabegron 25 mg PO HS * Advair Diskus 1 puff inhaled BID * Combivent 1 puff inhaled QID * Docusate 100 mg PO BID * Miralax 17 grams PO daily PRN constipation * Namenda XR 28 mg PO HS * Bumex 0.5 mg PO daily PRN * Multivitamin 1 cap BID * Donepezil 10 mg PO HS * Omeprazole 20 mg PO daily * Potassium 10 meq PO BID * Zinc 50 mg PO daily * Nature-throid 32.5 mg PO daily * Methenamine 1 gram PO daily PRN infection * Vitamin C 500 mg PO daily * Vitamin B12 - Folic Acid PO daily * Vitamin D3 400 mg daily . Current Medications Medications (Trade) Dose Ordered Sig/Kaleigh Route Start Time Stop Time Status Last Admin (Adrenalin (1:1000) Inj/D5W Inj) 250 ml @ 22.5 mls/hr TITRATE IV 12/07/16 01:45 Chlorhexidine Gluconate 15 ml 15 ml BID@08,20 MT 12/07/16 08:00 12/07/16 08:06 (NS 1000 ml Inj) 1,000 ml @ 84 mls/hr [id number] IV 12/07/16 01:18 12/07/16 11:43 (NS Flush) 2 ml UNSCH PRN .XX 12/07/16 01:30 (NS Flush) 2 ml BID .XX 12/07/16 09:00 12/07/16 08:06 (Tylenol) 650 mg Q6H PRN PO 12/07/16 01:30 12/07/16 08:05 (fentaNYL INJ) 50 mcg Q1H PRN IV PUSH 12/07/16 01:30 (Protonix Inj) 40 mg DAILY IV 12/07/16 09:00 12/07/16 08:05 (Colace) 100 mg BID PO 12/07/16 09:00 12/07/16 08:06 Miscellaneous Information 1 Q361D XX 12/07/16 01:30 12/07/16 03:00 (Chlorhexidine 2% Cloth) 3 pack Taper DAILY@04 TOP 12/07/16 04:00 12/03/17 03:59 12/07/16 03:34 Chlorhexidine Gluconate 3 pack 3 pack UNSCH PRN TOP 12/07/16 01:30 Fentanyl Citrate 250 ml @ 0 mls/hr TITRATE IV 12/07/16 01:30 Piperacillin Sod/ Tazobactam Sod 100 ml @ 200 mls/hr Q6H IV 12/07/16 08:00 12/07/16 08:05 Pharmacy Profile Note 0 ml @ 0 mls/hr UNSCH OTHER 12/07/16 02:15 (Levophed-Dextrose Drip) 250 ml @ 0 mls/hr TITRATE IV 12/07/16 05:45 12/07/16 10:40 Terbutaline Sulfate 1 mg 1 mg UNSCH PRN SQ 12/07/16 05:45 (Zithromax Inj/ NS 250 ml Inj) 250 ml @ 250 mls/hr Q24H IV 12/07/16 09:00 12/07/16 10:33 (D50w (Vial) Inj) 50 ml UNSCH PRN IV 12/07/16 09:45 (Glucagon Inj) 1 mg UNSCH PRN OTHER 12/07/16 09:45 (NovoLOG SUPPLEMENTAL SCALE) 1 Q6H SQ 12/07/16 10:00 12/07/16 10:42 (Heparin Inj) 5,000 units Q12HR SQ 12/07/16 10:00 12/07/16 10:40 . Family History Her mother of gallbladder cancer. Father of intracerebral hemorrhage. Sister is living at age 97. . Substance Use Tobacco: long-term smoker who quit smoking in 2002 Alcohol: Does not use alcohol or illicit drugs Prescription med abuse: None. Illicits: None. . Psychosocial History Born and raised in [place]. Her in 2001. Retired. She has 2 adult children, a son and a daughter. She has lived with her daughter for the past 4 years. She is a retired hairdresser. . Spiritual/Cultural Factors Yazdanism josi . (ETHAN CEBALLOS) Living Will: Never completed Health Care Surrogate: Never completed Durable Power of Swamper: Never completed Health Care Surrogate(s): Patient is currently incapacitated to make her own decisions, uncertain if she regained capacity. According to [place] statutes, health care proxy decision- making would fall to the majority of adult children. Patient has one son and one daughter. . Today's verbally stated goals: Intubated on mechanical ventilation, unable to participate in goals of care conversation. . Family/friends goals: Desires continued aggressive care, including FULL CODE at this time. Ethical and Legal Issues Patient is currently incapacitated to make her own decisions, uncertain if she regained capacity. According to [place] statutes, health care proxy decision- making would fall to the majority of adult children. Patient has one son (Jerad ) and one daughter (Qian). . (ETHAN CEBALLOS) Physical Exam Vital Signs Date Time Temp Pulse Resp B/P Pulse Ox O2 Delivery O2 Flow Rate FiO2 12/07/16 11:56 98 50 12/07/16 08:13 94 50 12/07/16 06:00 93 12/07/16 06:00 93 24 110/51 100 101/58 12/07/16 05:08 100 100 12/07/16 05:00 93 24 78/54 100 86/60 12/07/16 04:00 93 12/07/16 04:00 98.8 91 30 85/57 100 12/07/16 03:00 98.8 86 30 110/63 100 12/07/16 02:58 97 100 12/07/16 02:34 103.2 12/07/16 02:14 100 100 12/07/16 02:13 104/60 12/07/16 01:50 79 16 87/66 12/07/16 01:45 95 16 71/52 100 Ventilator 12/07/16 01:20 100 100 12/07/16 01:19 102 16 90/60 98 Ventilator 12/07/16 01:15 100 16 102/62 99 12/07/16 00:41 101 99/62 98 12/07/16 00:24 110 16 92/58 98 12/07/16 00:20 109 16 89/51 100 12/07/16 00:16 111 16 105/56 100 Ventilator 12/07/16 00:10 107 16 87/52 88 12/07/16 00:05 100 12/07/16 00:03 111 16 98/56 88 12/07/16 00:01 98 100 12/06/16 23:53 148 176/86 94 12/06/16 23:46 39 18 62/35 87 12/06/16 23:36 72 97/52 12/06/16 23:30 120 166/85 87 12/06/16 23:24 42 12/06/16 23:20 15.00 100 12/06/16 12/07/16 18:59 06:59 Intake Total 744 ml Output Total 250 ml Balance 494 ml Intake IV Total 744 ml Output Urine Total 250 ml Exam CONSTITUTIONAL/GENERAL: This is an elderly, critically ill appearing patient on [facility] vent. TUBES/LINES/DRAINS: ETT, OG, PIV, right femoral central line, Left femoral A- line, Victoria, bilateral soft wrist restraints. SKIN: No jaundice, rashes, or lesions. Ecchymoses on upper/ lower extremities and chest. Dressing to left norton. Not diaphoretic. HEAD: Atraumatic. Normocephalic. EYES: Pupils equal and round and reactive. ENT: Hard of hearing per notes, opens eyes to loud voice. Nose without bleeding or purulent drainage. Throat difficult to visualize due to tubes. NECK: Trachea midline. CARDIOVASCULAR: Systolic murmur noted, regular. RESPIRATORY/CHEST: Symmetric, unlabored respirations on vent. Few scattered crackles bilateral bases. GASTROINTESTINAL: Abdomen soft, non-tender, nondistended. No guarding. Bowel sounds hypoactive. GENITOURINARY: Without palpable bladder distension. Victoria catheter in place. MUSCULOSKELETAL: Bilateral upper extremities with edema. No mottling or clubbing. LYMPHATICS: No palpable cervical or supraclavicular adenopathy. NEUROLOGICAL: Awakens briefly to loud voice, nods yes/ no to some questions. Wiggles toes on command with slight delay, does not follow any other commands for me. PSYCHIATRIC: No obvious anxiety/depression. no apparent hallucinations or other psychotic thought process. . (ETHAN CEBALLOS) Diagnostic Tests Laboratory Laboratory Tests Test 12/06/16 12/06/16 12/06/16 12/07/16 23:28 23:44 23:54 00:55 Prothrombin Time 10.4 SEC (9.8-11.6) Prothromb Time International 0.9 RATIO Ratio Activated Partial 22.4 SEC Thromboplast Time (24.3-30.1) White Blood Count 20.3 TH/MM3 (4.0-11.0) Red Blood Count 4.99 MIL/MM3 (4.00-5.30) Hemoglobin 13.1 GM/DL (11.6-15.3) Bedside Hemoglobin 15.0 G/DL (12.0-17.0) Hematocrit 43.4 % (35.0-46.0) Bedside Hematocrit 44.0 % (38.0-51.0) Mean Corpuscular Volume 87.0 FL (80.0-100.0) Mean Corpuscular Hemoglobin 26.3 PG (27.0-34.0) Mean Corpuscular Hemoglobin 30.3 % Concent (32.0-36.0) Red Cell Distribution Width 18.2 % (11.6-17.2) Platelet Count 237 TH/MM3 (150-450) Mean Platelet Volume 9.5 FL (7.0-11.0) Neutrophils (%) (Auto) 60.4 % (16.0-70.0) Lymphocytes (%) (Auto) 31.4 % (9.0-44.0) Monocytes (%) (Auto) 6.5 % (0.0-8.0) Eosinophils (%) (Auto) 1.2 % (0.0-4.0) Basophils (%) (Auto) 0.5 % (0.0-2.0) Neutrophils # (Auto) 12.3 TH/MM3 (1.8-7.7) Lymphocytes # (Auto) 6.4 TH/MM3 (1.0-4.8) Monocytes # (Auto) 1.3 TH/MM3 (0-0.9) Eosinophils # (Auto) 0.2 TH/MM3 (0-0.4) Basophils # (Auto) 0.1 TH/MM3 (0-0.2) CBC Comment AUTO DIFF Differential Total Cells 100 Counted Neutrophils % (Manual) 65 % (16-70) Band Neutrophils % 2 % (0-6) Lymphocytes % 17 % (9-44) Monocytes % 3 % (0-8) Basophils % 1 % (0-2) Neutrophils # (Manual) 13.6 TH/MM3 (1.8-7.7) Differential Comment FINAL DIFF MANUAL Atypical Lymphocytes 12 % (0-0) Platelet Estimate NORMAL (NORMAL) Platelet Morphology Comment NORMAL (NORMAL) Red Cell Morphology Comment NORMAL (NORMAL) D-Dimer Quantitative (PE/DVT) 13.34 MG/L FEU (0.00-0.50) Bedside Sodium 139 MMOL/L (138-146) Bedside Potassium 4.3 MMOL/L (3.5-4.9) Bedside Chloride 104 MMOL/L (98-109) Bedside Blood Urea Nitrogen 24 MG/DL (8-26) Bedside Creatinine 1.1 MG/DL (0.6-1.0) Bedside Glucose 291 MG/DL (60-95) Calcium Level 8.7 MG/DL (8.5-10.1) Phosphorus Level 3.7 MG/DL (2.5-4.9) Magnesium Level 4.2 MG/DL (1.5-2.5) Total Creatine Kinase 62 U/L (26-192) Troponin I 0.03 NG/ML (0.02-0.05) B-Type Natriuretic Peptide 118 PG/ML (0-100) Blood Gas Puncture Site RFEM LFEM Blood Gas Patient Temperature 98.6 98.6 Venous Blood pH 7.28 (7.360-7.400) Venous Blood Partial Pressure 43 mmHg (44-48) CO2 Venous Blood Partial Pressure 29 mmHg (35-40) O2 Venous Blood HCO3 20 mmol/L (22-26) Venous Blood Oxygen Saturation 46 % (70-76) Venous Blood Oxygen Content 8.0 Vol % (9.0-17.0) Venous Blood Base Excess -6.1 mmol/L (-2-2) Oxygen Delivery Device VENTILATOR VENTILATOR Blood Gas Ventilator Setting AC/500/PEEP5 //PEEP5 Blood Gas Inspired Oxygen 100 % 100 % Blood Gas HCO3 25 mmol/L (22-26) Blood Gas Base Excess 0.7 mmol/L (-2-2) Blood Gas Oxygen Saturation 97 % (90-100) Arterial Blood pH 7.40 (7.380-7.420) Arterial Blood Partial 41 mmHg (38-42) Pressure CO2 Arterial Blood Partial 119 mmHG Pressure O2 (61-120) Arterial Blood Oxygen Content 16.9 Vol % (12.0-20.0) Arterial Blood 1.4 % (0-4) Carboxyhemoglobin Arterial Blood Methemoglobin 0.3 % (0-2) Blood Gas Hemoglobin 12.3 G/DL (12.0-16.0) Urine Color YELLOW (YELLW/STRAW) Urine Turbidity HAZY (CLEAR) Urine pH 5.5 (5.0-8.5) Urine Specific [place] 1.018 (1.002-1.035) Urine Protein 100 mg/dL (NEG-TRACE) Urine Glucose (UA) NEG mg/dL (NEG) Urine Ketones NEG mg/dL (NEG) Urine Occult Blood NEG (NEG) Urine Nitrite NEG (NEG) Urine Bilirubin NEG (NEG) Urine Urobilinogen 2.0 MG/DL (LESS THAN 2.0) Urine Leukocyte Esterase TRACE (NEG) Urine RBC 2 /hpf (0-3) Urine WBC 6 /hpf (0-5) Urine Squamous Epithelial 1 /hpf (0-5) Cells Urine Calcium Oxalate Crystals RARE /hpf (NONE) Urine Bacteria RARE /hpf (NONE) Urine Hyaline Casts INNUM /lpf (RARE) Urine Mucus FEW /lpf (OCC) Microscopic Urinalysis Comment CATH-CULTURE IND Test 12/07/16 12/07/16 12/07/16 12/07/16 00:56 01:59 02:58 03:30 Lactic Acid Level 9.3 mmol/L 4.0 mmol/L (0.4-2.0) (0.4-2.0) Blood Gas Puncture Site LT FEMORAL Blood Gas Patient Temperature 98.6 Blood Gas HCO3 26 mmol/L (22-26) Blood Gas Base Excess 2.1 mmol/L (-2-2) Blood Gas Oxygen Saturation 93 % (90-100) Arterial Blood pH 7.43 (7.380-7.420) Arterial Blood Partial 40 mmHg (38-42) Pressure CO2 Arterial Blood Partial 72 mmHG Pressure O2 (61-120) Arterial Blood Oxygen Content 16.2 Vol % (12.0-20.0) Arterial Blood 1.5 % (0-4) Carboxyhemoglobin Arterial Blood Methemoglobin 0.5 % (0-2) Blood Gas Hemoglobin 12.4 G/DL (12.0-16.0) Oxygen Delivery Device PRVC/AC Blood Gas Inspired Oxygen 100 % Nasal Screen MRSA (PCR) MRSA DETECTED (NOT DETECT) Test 12/07/16 12/07/16 06:25 09:00 Troponin I 2.46 NG/ML 2.11 NG/ML (0.02-0.05) (0.02-0.05) Magnesium Level 2.5 MG/DL (1.5-2.5) (ETHAN CEBALLOS-C) Result Diagram: 12/06/16 2328 Microbiology Microbiology Date/Time Procedure Status Source Growth 12/07/16 00:30 Aerobic Blood Culture Received Blood Peripheral Pending 12/07/16 00:30 Anaerobic Blood Culture Received Blood Peripheral Pending 12/07/16 00:40 Aerobic Blood Culture Received Blood Peripheral Pending 12/07/16 00:40 Anaerobic Blood Culture Received Blood Peripheral Pending 12/07/16 00:55 Urine Culture Received Urine Catheterized Urine Pending . Imaging Last Impressions Head CT 12/07/16 0000 Signed Impressions: Service Date/Time: Wednesday, December 07, 2016 02:21 - CONCLUSION: Chronic and small vessel ischemic changes without any evidence for acute hemorrhage or mass effect. Maryellen Hobson MD Chest X-Ray 12/07/16 0000 Signed Impressions: Service Date/Time: Wednesday, December 07, 2016 08:25 - CONCLUSION: 1. Consolidative opacity remains in the right lung base with mild patchy opacity in the left lung base. 2. Small bilateral pleural effusions right greater than left. 3. The nasogastric tube remains in place with the distal side-port projected over the distal esophagus. This could be advanced at least [address] Ar[address] MD CT Angiography 12/07/16 0000 Signed Impressions: Service Date/Time: Wednesday, December 07, 2016 02:27 - CONCLUSION: Bibasilar consolidation worse on the right. Maryellen Hobson MD . Procedures * 12/07/16 - left femoral arterial line placement * 12/06/16 - right triple lumen central line placement * 12/06/16 - Cardiac arrest x 3, Intubation . (ETHAN CEBALLOS) Patient/Family Conference Present at Family Conference: Met with daughter, Lyndsay and niece at bedside. Family Conference Time (mins): 40 Family Conference Location: Bedside Issues Discussed: * Palliative care role, purpose, approach * Additional medical, psychosocial, and spiritual history * Patients general health, functional status, and cognitive changes in the months leading up to the current hospitalization * Patients goals of care as best understood from advance directives and/or conversations and/or values * Palliative care contact information provided Family meeting arranged 12/08/16 at 3:30 PM when patient's son and daughter will both be available. . (ETHAN CEBALLOS) Assessment and Plan Disease Oriented Problem List: (1) Septic shock (2) Pneumonia (3) PEA (Pulseless electrical activity) (4) Bradycardia (5) COPD (chronic obstructive pulmonary disease) (6) Cardiopulmonary arrest with successful resuscitation (7) Lactic acidosis (8) Leukocytosis Symptom Scale: (1) Pain 0-10 Scale: Unable to quantify (2) Dyspnea 0-10 Scale: Unable to quantify (3) Weakness 0-10 Scale: Unable to quantify Pertinent Non-Medical Issues Psychosocial: . Supported by son and daughter. Spiritual: Yazdanism josi, welcomes systems test engineer support. Legal: Patient is currently incapacitated to make her own decisions, uncertain if she regained capacity. According to [place] statutes, health care proxy decision-making would fall to the majority of adult children. Patient has one son and one daughter. Ethical issues impacting care: No known concerns at this time. . Important Contacts * Qian Vargas, daughter/ co-HCP: [phone] (cell) or [phone] (work ) * Jerad Santana, son/co-HCP: [phone] . Prognosis Ms. Santana is an 86 year old female with dementia, oxygen dependent COPD admitted post cardiac arrest with underlying cardiomyopathy and COPD/ resp failure and pneumonia. Given her advanced age, comorbidities, repeat hospitalizations for recurrent UTI, aspiration pneumonia and sepsis her overall prognosis is poor. . Code Status: Full Code Plan * Patient is currently incapacitated to make her own decisions, uncertain if she regained capacity. According to [place] statutes, health care proxy decision-making would fall to the majority of adult children. Patient has one son and one daughter. * FULL CODE * Palliative care has arranged family meeting 12/08/16 at 3:30 PM when son and daughter will be available. * SYMPTOMS: Pain: potential sources include recent cardiopulmonary resuscitation , intubation, tubes, bedbound status and infection. Fentanyl drip available, currently on hold. Will monitor. Dyspnea: remains on mechanical ventilation, underlying COPD, uncertain patient will be able to be weaned from mechanical vent. Weakness: secondary to recent hospitalizations, cardiopulmonary resuscitation, bedbound status, infection. No new medication recommendations at this time. * Palliative care number provided. * Palliative care will continue to follow throughout hospital course to assist with symptom management and clarification of goals as needed. . (ETHAN CEBALLOS) Thank you for the opportunity to participate in the care of Ms. Santana. (ETHAN CEBALLOS) Attestation To help prompt me to consider important information that might be impacting today's encounter and assessment, information from prior notes written by myself or my colleagues may have been "brought forward" into today's note. My signature on this note, however, is an attestation that I personally performed the exam, history, and/or decision-making noted today, and, unless otherwise indicated, the interactions with patient, family, and staff as well as the review of records all occurred today. I also attest that the listed assessment and stated plan reflect my best clinical judgment today based on the combination of historical information, prior notes, and today's exam/ interactions. When time spent is documented, it refers only to time spent today by the signer, or if indicated, combined time spent today by collaborating physician/nurse practitioner. (ETHAN CEBALLOS) Collaborating MD Comments . Chart reviewed. Case discussed with palliative care TOOL DIE MAKER. Above TOOL DIE MAKER note reviewed and I concur. . (Sea Dewey MD) ETHAN CEBALLOS December 07, 2016 14:39 Sea Dewey MD December 15, 2016 16:24
--- NOTE | 2016-12-07 15:04 | MB ---
cc: JORJE TRACY DATE OF CONSULTATION: 12/07/2016 HISTORY OF PRESENT ILLNESS Ms. Santana is an 86-year-old white female with a history of cardiomyopathy, hypertension, renal insufficiency and pulmonary embolism. She was complaining of chest pain the day prior to admission. She had difficulty ambulating and her oxygen was increased. She developed mental status changes and EMS was called. EMS found the patient to be in torsades. She was shocked and intubated and subsequently noted to be systolic. In the emergency room she was found to be in slow atrial fibrillation after cardiac arrest with asystole. She was subsequently transferred to the ICU, was hypotensive, and was started on pressors. PAST MEDICAL HISTORY 1. Cardiomyopathy with improvement of left ventricular systolic function. 2. Hypertension. 3. COPD on oxygen. 4. Pulmonary embolism. 5. Left bundle branch block. 6. Renal insufficiency. 7. Hypertension. 8. Gastroesophageal reflux disease. 9. Mild mitral and tricuspid regurgitation. 10.Previous hospitalization for pneumonia. 11.Urinary incontinence. 12.UTI. 13.Recurrent aspiration and dysphagia. PAST SURGICAL HISTORY 1. ORIF right ankle and left shoulder. 2. Appendectomy. 3. Cholecystectomy. 4. Right hip arthroplasty. MEDICATIONS Medications at home included: 1. Bumex. 2. Vitamin-C. 3. Wellbutrin. 4. Donepezil. 5. Namenda. 6. Mirabegron. 7. Cholecalciferol. 8. Zinc. 9. Ipratropium. 10.Klor-Con. 11.Advair Diskus. 12.Polyethylene glycol. 13.Buspirone. 14.Pantoprazole. 15.Prednisone. 16.Temazepam. 17.Docusate. 18.PreserVision. 19.Nature-Throid. 20.Methenamine. SOCIAL HISTORY The patient quit smoking in 2002. She does not drink alcohol. She walks with a walker. She has Advanced Directives. FAMILY HISTORY Negative for heart disease. REVIEW OF SYSTEMS Otherwise negative. PHYSICAL EXAMINATION VITAL SIGNS: Blood pressure 100/50, pulse 93 and regular. GENERAL: She is intubated and sedated. NECK: 1+ carotid upstrokes. LUNGS: Rhonchi. HEART: Regular with systolic murmur. No gallop. ABDOMEN: Soft. EXTREMITIES: Without edema. 1+ distal pulses. NEUROLOGIC: Grossly nonfocal. The patient is sedated. EKG EKG was reviewed and showed sinus rhythm with left bundle branch block. LABORATORY Hemoglobin 13.1. White blood cell count 20.3. Potassium 4.3. Creatinine 1.1. Magnesium 4.2 and 2.5. Troponin 2.46 and 2.11. DIAGNOSIS 1. Cardiac arrest. 2. Ventricular tachycardia/torsades. 3. Respiratory failure. 4. Acute encephalopathy. 5. COPD on home oxygen. 6. Cardiomyopathy. 7. Renal insufficiency. 8. Septic shock. DISPOSITION Ms. Santana is currently intubated on the ventilator. She requires pressors for hemodynamic support. She is on antibiotics for septic shock. I will review her echocardiogram which was obtained this morning. She has Advanced Directives and I will discuss with the family the further plan. Her overall prognosis is very poor. I will follow her for cardiology. MD KEELY Hagen/ELOISE /2:24 PM /2:36 PM MTDD
--- NOTE | 2016-12-07 15:55 | EKG ---
Date Performed: 12/06/2016 Time Performed: 23:37:04 PTAGE: 86 years EKG: The underlying atrial rhythm is difficult to discerne. There are no obvious T waves, it cou ld be a junctional rhythm, With a left bundle branch block. Clinical corrolation is suggested. ABNORM AL ECG NO PREVIOUS TRACING DOCTOR: Sean Walters Interpretating Date/Time 12/07/2016 15:55:17
--- NOTE | 2016-12-07 15:59 | EKG ---
Date Performed: 12/07/2016 Time Performed: 07:33:53 PTAGE: 86 years EKG: Sinus rhythm with premature atrial beats. LEFT BUNDLE BRANCH BLOCK Left bundle branch block is old compared to th e prior tracing. Clinical corrolation is suggested, regarding changes to underlying Atrial rhythm. AB NORMAL ECG PREVIOUS TRACING : 12/06/2016 23.37 DOCTOR: Sean Walters Interpretating Date/Time 12/07/2016 15:59:03
[2016-12-08] VITALS (15 sets, daily range): BP systolic 88–114; BP diastolic 52–63; PULSE 67–84; RESP 15–22; TEMP 98.2–100.5; O2SAT 93–98
[2016-12-08] MEDS: PIPERACIL-TAZO 4.5 GM PREMIX 100 ML IV SCH ×3 (02:26→14:01)
[2016-12-08] MEDS: SODIUM CHLOR 0.9% 1000 ML INJ 1,000 ML IV SCH ×3 (02:27→23:46)
[2016-12-08] MEDS: NOREPINEPHRINE-DEXTROSE DRIP 250 ML IV SCH ×2 (02:27→02:29)
[2016-12-08] MEDS: RESP: ALBUTEROL 2.5 MG/IPRATROPIUM 0.5 MG NEB (SCH) NEB ×4 (02:52→20:39)
[2016-12-08] MEDS: CHLORHEXIDINE GLUCONATE 2 % 1 PACK (2 CLOTHS) TOP SCH (04:00)
[2016-12-08] MEDS: INSULIN ASPART SUPPLEMENTAL SCALE SQ SCH ×4 (04:00→20:54)
--- NOTE | 2016-12-08 05:45 | RADRPT ---
EXAM DATE/TIME: 12/08/2016 04:57 [facility] COMPARISON: CHEST SINGLE AP, December 07, 2016, 8:25. INDICATIONS : Shortness of breath. MEDICAL HISTORY : None. SURGICAL HISTORY : None. ENCOUNTER: Initial ACUITY: 1 day PAIN SCORE: 0/10 LOCATION: Bilateral chest FINDINGS: NG tube is present with tip in the distal esophagus and needs to be advanced. There is worsening pare nchymal process in both lungs most likely worsening pulmonary edema. Bilateral pleural effusions have not changed. Right lower lung consolidation is also present worse since the prior study and pneumoni a is not excluded. ET tube is present with tip overlapping approximately 4 cm above the kim. CONCLUSION: Worsening pulmonary edema and right lung base consolidation which may represent pneumonia. Maryellen Hobson MD on December 08, 2016 at 5:42 Board Certified Radiologist. This report was verified electronically.
[2016-12-08 06:54] LABS: AUTOMATED NEUTROPHIL # 15.4 TH/MM3 (1.8-7.7); BASOPHIL # 0.1 TH/MM3 (0-0.2); BASOPHIL % 0.4 % (0.0-2.0); EOSINOPHIL # 0.3 TH/MM3 (0-0.4); EOSINOPHIL % 1.7 % (0.0-4.0); HEMATOCRIT 35.6 % (35.0-46.0); HEMO FLAGS DIFF FINAL; LYMPH % 8.9 % (9.0-44.0); LYMPHOCYTE # 1.7 TH/MM3 (1.0-4.8); MEAN CELL VOLUME 84.8 FL (80.0-100.0); MEAN CORPUSCULAR HEMOGLOBIN 26.8 PG (27.0-34.0); MEAN CORPUSCULAR HGB CONC 31.6 % (32.0-36.0); MONO % 7.3 % (0.0-8.0); NEUT % 81.7 % (16.0-70.0); PLATELET COUNT 157 TH/MM3 (150-450); WHITE BLOOD COUNT 18.8 TH/MM3 (4.0-11.0)
[2016-12-08 07:12] LABS: ALKALINE PHOSPHATASE 87 U/L (45-117); ALT (GPT) 30 U/L (10-53); ANION GAP 8 MEQ/L (5-15); AST (GOT) 26 U/L (15-37); BICARBONATE 27.2 MEQ/L (21.0-32.0); BLOOD UREA NITROGEN 21 MG/DL (7-18); CHLORIDE 110 MEQ/L (98-107); GLOMERULAR FILTRATION RATE 49 ML/MIN (>89); MAGNESIUM 2.1 MG/DL (1.5-2.5); POTASSIUM 3.6 MEQ/L (3.5-5.1); SODIUM (NA) 145 MEQ/L (136-145); TOTAL BILIRUBIN ADULT 1.1 MG/DL (0.2-1.0)
--- NOTE | 2016-12-08 07:46 | MB ---
cc: LAI CRAWFORD DATE OF CONSULTATION 12/07/2016 REASON FOR CONSULTATION Respiratory failure, ventilator management. PRESENT ILLNESS This is an 86-year-old white female with a longstanding history of COPD who has been on home oxygen at 2 liters nasal cannula. The patient apparently was quite lethargic earlier in the day and was getting more and more short of breath and thus 911 was ordered. The patient did become poorly responsive at that time and she received magnesium sulfate intravenously and subsequently was transferred via [facility] to the emergency room. She had EKG and cardiac enzymes, as well as blood gases, however, the patient apparently had a left bundle branch block and went into asystole requiring resuscitation and she was given IV epinephrine drip and had no history of nausea, vomiting or aspiration. The patient was brought in by [facility] and she went into ventricular tachycardia and had to be resuscitated and was in asystole briefly and had to be given epinephrine and subsequently she was intubated and her rhythm was improved after intubation. PAST HISTORY Includes a history of: 1. Hypertension 2. History of diabetes mellitus. 3. Past history for UTI. 4. She has had reflux symptoms. 5. No nausea or vomiting. 6. CHF FAMILY HISTORY Noncontributory REVIEW OF SYSTEMS The patient has been overweight. She has urinary incontinence, previous history of UTI's. She has dysphagia and has trouble hearing. Also has had coughing spells. PAST SURGICAL HISTORY Surgery includes: 1. ORIF right ankle 2. Appendectomy 3. Cholecystectomy 4. Right hip arthroplasty 5. ORIF of the left ankle 6. Left shoulder surgery MEDICATIONS Included: 1. Advair Diskus 50 x 50 2. Bumex 0.5 mg b.i.d. 3. KCL 10 mEq p.o. b.i.d. HABITS She not smoke, but has a remote history of smoking for 10 years. No significant alcohol. FAMILY HISTORY Noncontributory DRUG ALLERGIES No drug allergies are listed. REVIEW OF SYSTEMS The patient has had no headaches or blackouts. No urinary symptoms. No leg or calf muscle pain. She does have some joint pains of her extremities. The other system review is negative. PHYSICAL EXAMINATION This is an elderly thinly built white female in no acute distress. VITAL SIGNS: Blood pressure 122/70, pulse is 96, respirations 24, temperature 98. HEENT: Head normocephalic. Pupils are reactive. Tongue moist. Nasal mucosa injected. Throat is clear. NECK: Supple. No lymphadenopathy. CHEST: Distant breath sounds with expiratory wheezes with occasional crackles at the right base. HEART: The heart sounds are regular. S1 and S2. ABDOMEN: Soft and benign. Bowel sounds are active. IMPRESSION 1. COPD with acute exacerbation 2. Basilar pneumonia 3. Anxiety 4. Acute respiratory failure 5. Aspiration pneumonia 6. Severe COPD with emphysema 7. Dementia 8. History of atrial fibrillation 9. Status post cardiac arrest PLAN The patient will be maintained on ventilator support and weaned to C-PAP, respiratory parameters to be done and she will have a blood gas study done as well and hopefully be extubated if she meets criteria. The patient seems more awake at this time. She will also be maintained on IV antibiotic coverage for aspiration pneumonia, nebulized DuoNeb solution added q.i.d. p.r.n., tube feedings to be started at 30 cc Glucerna and diuretic therapy daily. Follow up chest x-ray has been ordered for the a.m. Thank you Dr. Berger for this consultation. I will follow the case with you. MD RANDAL Rosales/DEBBIE /10:55 PM /7:29 AM
[2016-12-08] MEDS: DOCUSATE SODIUM 100 MG CAP PO SCH ×2 (07:55→20:49)
[2016-12-08] MEDS: HEPARIN SODIUM - SQ 10,000 UNITS/ML VIAL SQ SCH ×2 (07:55→20:50)
[2016-12-08] MEDS: AZITHROMYCIN INJ 500 MG in SODIUM CHLOR 0.9% 250 ML INJ 250 ML IV SCH (07:55)
[2016-12-08] MEDS: PANTOPRAZOLE SODIUM 40 MG VIAL IV SCH (07:56)
[2016-12-08] MEDS: SODIUM CHLORIDE 0.9% FLUSH 10 ML FLUSH SCH ×2 (07:56→20:52)
[2016-12-08] MEDS: CHLORHEXIDINE 0.12% (ORAL KIT) 15 ML CUP MT SCH ×2 (07:57→20:54)
[2016-12-08] MEDS: VANCOMYCIN INJ 1,500 MG in SODIUM CHLORID 0.9% 500 ML INJ 500 ML IV SCH (12:17)
[2016-12-08] MEDS: HYDROCORTISONE SOD SUCCINATE 100 MG VIAL IV PUSH SCH ×2 (12:17→20:50)
--- NOTE | 2016-12-08 12:36 | HHI.PR ---
Subjective Remarks She is awake and on the vent ,with FIO2 45 %. ABG's were OK. CXR shows basal infiltrates Objective Vital Signs Date Time Temp Pulse Resp B/P Pulse Ox O2 Delivery O2 Flow Rate FiO2 12/08/16 10:35 45 12/08/16 09:10 93 45 12/08/16 08:00 99.9 84 21 104/54 93 105/56 12/08/16 08:00 50 12/08/16 08:00 79 104/54 105/56 12/08/16 07:00 77 12/08/16 04:03 93 50 12/08/16 04:00 98.8 80 17 105/59 97 106/57 12/08/16 04:00 40 12/08/16 00:00 40 12/08/16 00:00 76 16 96/63 96 94/52 12/07/16 23:58 96 50 12/07/16 23:00 78 12/07/16 20:56 96 35 12/07/16 20:00 40 12/07/16 20:00 99.3 78 20 97/58 96 93/57 12/07/16 16:00 40 12/07/16 16:00 98.6 74 19 90/55 97 97/59 12/07/16 15:02 97 40 12/07/16 15:00 15 12/07/16 13:00 98.8 I/O 12/07/16 12/07/16 12/07/16 12/08/16 12/08/16 12/08/16 07:00 15:00 23:00 07:00 15:00 23:00 Intake Total 744 ml 2793 ml 1240 ml 376 ml Output Total 270 ml 160 ml 347 ml 350 ml Balance 474 ml 2633 ml 893 ml 26 ml Intake Oral 0 ml IV Total 744 ml 2793 ml 1240 ml 376 ml Output Urine Total 270 ml 160 ml 347 ml 350 ml # Bowel Movements 0 0 0 Result Diagram: 12/08/1661412/08/16614 Objective Remarks This is an elderly thinly built white female intubated HEENT: Head normocephalic. Pupils are reactive. Tongue moist. Throat is clear. NECK: Supple. No lymphadenopathy. CHEST: Distant breath sounds with expiratory wheezes with occasional crackles at the right base. HEART: The heart sounds are regular. S1 and S2. ABDOMEN: Soft and benign. Bowel sounds are active. EXT No edema. Moves all well. Assessment and Plan Assessment and Plan IMPRESSION 1. COPD with acute exacerbation 2. Basilar pneumonia 3. Anxiety 4. Acute respiratory failure 5. Aspiration pneumonia 6. Severe COPD with emphysema 7. Dementia 8. History of atrial fibrillation 9. Status post cardiac arrest. Plan : 1. Wean Vent to CPAP and FIO2 40 %. 2. ABG and Resp parameters. 3. Continue antibiotics. 4. Nebs qid , duoneb. 5. Cont solucortef 100 mg tid. 6. Stop sedation 7. Extubate soon Guillermo Pratt MD December 08, 2016 12:36
[2016-12-08 13:24] LABS: BLOOD GAS BASE EXCESS -2.5 mmol/L (-2-2); BLOOD GAS HCO3 22 mmol/L (22-26); BLOOD GAS METHEMOGLOBIN 1.2 % (0-2); BLOOD GAS O2 HGB SATURATION 91 % (90-100); BLOOD GAS OXYGEN CONTENT 14.3 Vol % (12.0-20.0); BLOOD GAS PCO2 38 mmHg (38-42); BLOOD GAS PO2 72 mmHg (61-120); BLOOD GAS TOTAL HGB 11.1 G/DL (12.0-16.0); TEMP CORR TO 98.6
[2016-12-08 13:25] LABS: CRITICAL VALUE NO; DRAW SITE ART LINE; FIO2 45 %; OXYGEN DEVICE VENTILATOR; STAT NO; VENT SETTINGS CPAP 5/15PS
--- NOTE | 2016-12-08 14:18 | HHI.CCPN ---
Subjective Remarks/Hospital Course 86 yo WF with PMH of COPD on 2 L home O2, CHF who is brought in by [facility] after initial call for lethargy. [facility] reported that she was in Torsades. They started to administer magnesium sulfate and administered partial dose when the IV blew. She was the shocked for Vtach. She was intubated after receiving Ativan 4 mg IV and etomidate 20 mg IV. She was then noted to be in asystole. She was given epinephrine and had ROSC. EKG upon arrival to the emergency department demonstrated an irregular rhythm that appears to be slow A. fib. Due to concern LBBB a STEMI alert was called. Patient subsequently had a recurrent cardiac arrest where she had bradycardia followed by asystole at 23: 25 for 10 minutes (received Epi x2, bicarb x1 amp, calcium carbonate x1) and then another code at 23:48 for 4 minutes (received epi x3, sodium bicarb x2 amps). Dr. Ball discussed with Dr. Hawley and he cancelled STEMI alert. Patient remains hypotensive post-arrest and is currently on Epinephrine drip and Dr. Ball has placed a R femoral central line. Her daughter states that yesterday patient was complaining of bilateral calf pain (new complaint) and took some Tramadol. Today she was getting ready for bed and ambulating with a walker but was not standing up completely straight and her daughter states "I knew something was wrong". She states that her fingers were cool and that she increased O2 from 2 L to 4L because O2 sat was not picking up. Daughter was urging her to go to the hospital. She then began "staring off" with "eyes flickering" so her daughter called 911. Her daughter states she was speaking with the patient during this time and patient was able to verbally respond saying "I am tired". Of note, patient has had recurrent hospitalizations for UTI and aspiration and has been on a pureed diet with thickened liquids however tonight she did eat some birthday cake for her daughter's birthday. Patient has one prior intubation for COPD in 2002. She was also hospitalized September 09 in [facility] for UTI and pneumonia for 9 days. She then went to rehab and was readmitted to [facility] for sepsis , UTI, pneumonia and was hospitalized for 2 weeks (on pressors for 3-4 days, not intubated). She was discharged to rehab and has now been home at her daughter's house since October 24, 2016. She was started on an unknown antibiotic and had taken one dose tonight. Her daughter states this was started in anticipation of urologic procedure by Dr. Gutierrez scheduled for later this week for intravesicular antibiotics. Patient has also had a cough x2 days. No fever. Her daughter states that she made a living will during a past hospitalization and said "she wanted everything done unless she had no hope of improving or if she was going to be a vegetable. 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 SUBJ 12/07: Remains intubated, not on sedation. epinephrine weaned off. Levophed at 5 mcg/min. Opens eyes to stimulation. Weakly follows commands. Family at bedside. Cardiac arrest possible not primary but secondary to severe walt pneumonia, sev sepsis and hypoxia 12/08: Awakens off sedation and follows commands. Remains orally intubated on mechanical ventilation. Hypotensive on Levophed 12 mics per minute. Objective Vital Signs Date Time Temp Pulse Resp B/P Pulse Ox O2 Delivery O2 Flow Rate FiO2 12/08/16 12:00 45 12/08/16 12:00 100.5 80 20 107/56 93 110/61 12/07/16 01:45 Ventilator 12/06/16 23:20 15.00 Intake and Output 12/07/16 12/07/16 12/07/16 07:59 15:59 23:59 Intake Total 744 ml 2793 ml 1240 ml Output Total 270 ml 160 ml 347 ml Balance 474 ml 2633 ml 893 ml Result Diagram: 12/08/16 0615 12/08/16 0615 Other Results Laboratory Tests Test 12/08/16 13:18 Blood Gas Puncture Site ART LINE Blood Gas Patient Temperature 98.6 Blood Gas HCO3 22 mmol/L (22-26) Blood Gas Base Excess -2.5 mmol/L (-2-2) Blood Gas Oxygen Saturation 91 % (90-100) Arterial Blood pH 7.38 (7.380-7.420) Arterial Blood Partial 38 mmHg (38-42) Pressure CO2 Arterial Blood Partial 72 mmHg Pressure O2 (61-120) Arterial Blood Oxygen Content 14.3 Vol % (12.0-20.0) Arterial Blood 2.0 % (0-4) Carboxyhemoglobin Arterial Blood Methemoglobin 1.2 % (0-2) Blood Gas Hemoglobin 11.1 G/DL (12.0-16.0) Oxygen Delivery Device VENTILATOR Blood Gas Ventilator Setting CPAP 5/15PS Blood Gas Inspired Oxygen 45 % Imaging Last Impressions Chest X-Ray 12/08/16 0600 Signed Impressions: Service Date/Time: Thursday, December 08, 2016 04:57 - CONCLUSION: Worsening pulmonary edema and right lung base consolidation which may represent pneumonia. Maryellen Hobson MD Head CT 12/07/16 0000 Signed Impressions: Service Date/Time: Wednesday, December 07, 2016 02:21 - CONCLUSION: Chronic and small vessel ischemic changes without any evidence for acute hemorrhage or mass effect. Maryellen Hobson MD CT Angiography 12/07/16 0000 Signed Impressions: Service Date/Time: Wednesday, December 07, 2016 02:27 - CONCLUSION: Bibasilar consolidation worse on the right. Maryellen Hobson MD Objective Remarks Drips: Levophed 12 mics per minute GENERAL: Elderly female who is orotracheally intubated. SKIN: Warm and dry. HEAD: Atraumatic. Normocephalic. EYES: Pupils 5 mm bilaterally and reactive to 2 mm. No scleral icterus. No injection or drainage. ENT: No nasal bleeding or discharge. Mucous membranes pink and moist. NECK: Trachea midline. No JVD. CARDIOVASCULAR: Tachycardic, regular, sinus rhythm on the monitor rate of 102. No murmurs rubs or gallops appreciated. RESPIRATORY: Orotracheally intubated, clear to auscultation without wheezes or Rales. GASTROINTESTINAL: Abdomen very soft without apparent tenderness, bowel sounds hypoactive, no hepato-splenomegaly appreciated : [place] in place with yellow urine output MUSCULOSKELETAL: Extremities without clubbing, cyanosis, or edema. Well-healed Scar overlying medial aspect of right ankle NEUROLOGICAL: Awakens off sedation, has spontaneous eye opening, pupils reactive , positive cough, positive gag , most both upper extremities A/P Assessment and Plan NEURO: Acute encephalopathy Hard of hearing - hearing aid left ear Fentanyl for analgosedation. Versed prn sedation. Target RASS -[address] brain as part of workup for cardiac arrest demonstrated chronic and small vessel ischemic changes with no hemorrhage Daily sedation vacation No focal neurologic deficit is apparent. RESP: Acute respiratory failure COPD with 2 L home oxygen requirement Tobacco abuse Bronchiectasis Orotracheally intubated by EVAC. ET tube pulled back as it was in right mainstem bronchus. Mechanical ventilation, vent bundle, daily C Pap trials. Chest x-ray 12/06/16ET tube is at right mainstem. Opacification right lower lobe with complete, it right pleural effusion, tortuous appearing aorta CT pulmonary angiogram - No PE. Right lower lobe consolidation and bronchiectasis. LLL consolidation. DuoNeb every 6 hours. Albuterol every 2 hours as needed. Added hydrocortisone 100 mg IV every 8 hourly on 12/08 CV: Cardiac arrest - reportedly presenting rhythm of Torsades/V tach per EVAC. Asystole in ED x2 Chronic systolic heart failure Patient had Torsades/Vtach per EVAC but no shockable rhythm in ED. Will review complete med list when available to evalute for risk of Torsades. QTc not prolonged on EKG. Her presentation appears concerning for aspiration pneumonia and possible respiratory arrest given her 2 day h/o cough, hypoxia, and presence of sepsis. Continue ASA. Will inititate antiarrhythmic if note Vtach on monitoring. Elevated troponin, cardiology consult noted. LVEF 25% on Echo. Norepinephrine to maintain mean arterial pressure greater than 65. Placed on Uli Trac for hemodynamic monitoring as she is no longer having significant ectopy. Off epinephrine. GI: Dysphagia Hiatal hernia Patient is on a modified diet (pured with thickened liquids). Concern for aspiration. Will need speech therapy to evaluate swallow postextubation. FEN/RENAL: Acute kidney injury Hypermagnesemia (following Magnesium administration) Monitor intake and output, monitor electrolytes, replace electrolytes as indicated Received IV contrast 12/07. AVoid nephrotoxins. ID: Leukocytosis Acute aspiration pneumonia h/o recurrent UTI (uncertain MDRO history) Chest x-ray with right lower lobe infiltrate CT PA with RLL consolidation and bronchiectasis. Send sputum culture. Followup blood and urine culture. Empiric coverage with Zosyn, Vancomycin. HEME: Monitor CBC ENDO: Acute hyperglycemia Low-dose insulin sliding scale with bedside glucose every 6 hours PROPH: Protonix 40 mg IV daily for stress ulcer prophylaxis. SCDs for DVT prophylaxis. Heparin 5000 units subcutaneous twice a day for DVT prophylaxis ACCESS: Right femoral central venous line placed by Dr. Ball 12/07 #1 left femoral art line placed 12/07 Discussed with patient's daughter in detail. Explained need for pressors and concern regarding possible need for tracheostomy if not extubated 2 weeks following intubation. Patient remains a full CODE STATUS at this time. Palliative care consulted to assist with deciding goals of therapy as patient reportedly has been having frequent hospitalizations and has advanced COPD and also has cardiomyopathy with an EF of 25% based on her echo result. Discussed with SIZING MACHINE TENDER, discussed with palliative care EDY Mack Critical care time 40 minutes exclusive of separately billed procedures Paul Berger MD December 08, 2016 14:18
--- NOTE | 2016-12-08 15:15 | EKG ---
Date Performed: 12/07/2016 Time Performed: 13:51:07 PTAGE: 86 years EKG: UNCERTAIN REGULAR RHYTHM LEFT BUNDLE BRANCH BLOCK ABNORMAL ECG Compared to prior tracing no significant change PREVIOUS TRACING : 12/07/2016 07.33 DOCTOR: Rivera Cotto Interpretating Date/Time 12/08/2016 15:13:30
--- NOTE | 2016-12-08 15:15 | EKG ---
Date Performed: 12/07/2016 Time Performed: 18:56:59 PTAGE: 86 years EKG: UNCERTAIN REGULAR RHYTHM LEFT BUNDLE BRANCH BLOCK ABNORMAL ECG Compared to prior tracing no significant change PREVIOUS TRACING : 12/07/2016 13.51 DOCTOR: Rivera Cotto Interpretating Date/Time 12/08/2016 15:13:48
[2016-12-08] MEDS: ACETAMINOPHEN 325 MG TAB PO PRN (16:12)
--- NOTE | 2016-12-08 16:59 | PD.CARD.PN ---
Subjective Subjective Remarks Intubated, wakes up easily Objective Medications Current Medications Medications (Trade) Dose Ordered Sig/[place] Route Start Time Stop Time Status Last Admin (Adrenalin (1:1000) Inj/D5W Inj) 250 ml @ 22.5 mls/hr TITRATE IV 12/07/16 01:45 Chlorhexidine Gluconate 15 ml 15 ml BID@08,20 MT 12/07/16 08:00 12/08/16 07:57 (NS 1000 ml Inj) 1,000 ml @ 84 mls/hr [id number] IV 12/07/16 01:18 12/08/16 12:18 (NS Flush) 2 ml UNSCH PRN .XX 12/07/16 01:30 12/07/16 20:45 (NS Flush) 2 ml BID .XX 12/07/16 09:00 12/08/16 07:56 (Tylenol) 650 mg Q6H PRN PO 12/07/16 01:30 12/08/16 16:12 (fentaNYL INJ) 50 mcg Q1H PRN IV PUSH 12/07/16 01:30 12/08/16 02:41 (Protonix Inj) 40 mg DAILY IV 12/07/16 09:00 12/08/16 07:56 (Colace) 100 mg BID PO 12/07/16 09:00 12/08/16 07:55 Miscellaneous Information 1 Q361D XX 12/07/16 01:30 12/07/16 03:00 (Chlorhexidine 2% Cloth) 3 pack Taper DAILY@04 TOP 12/07/16 04:00 12/03/17 03:59 12/08/16 04:00 Chlorhexidine Gluconate 3 pack 3 pack UNSCH PRN TOP 12/07/16 01:30 Fentanyl Citrate 250 ml @ 0 mls/hr TITRATE IV 12/07/16 01:30 Pharmacy Profile Note 0 ml @ 0 mls/hr UNSCH OTHER 12/07/16 02:15 (Levophed-Dextrose Drip) 250 ml @ 0 mls/hr TITRATE IV 12/07/16 05:45 12/08/16 02:29 Terbutaline Sulfate 1 mg 1 mg UNSCH PRN SQ 12/07/16 05:45 (Zithromax Inj/ NS 250 ml Inj) 250 ml @ 250 mls/hr Q24H IV 12/07/16 09:00 12/08/16 07:55 (D50w (Vial) Inj) 50 ml UNSCH PRN IV 12/07/16 09:45 (Glucagon Inj) 1 mg UNSCH PRN OTHER 12/07/16 09:45 (NovoLOG SUPPLEMENTAL SCALE) 1 Q6H SQ 12/07/16 10:00 12/08/16 16:00 Heparin Sodium (Porcine) 5000 units 5,000 units Q12HR SQ 12/07/16 10:00 12/08/16 07:55 (Vancomycin Inj/ NS 500 ml Inj) 515 ml @ 250 mls/hr Q24H IV 12/08/16 12:00 12/08/16 12:17 Miscellaneous Information SPECIFIC LAB TO BE DRAWN:VANCOMYCIN TROUGH DATE TO... ONCE ONCE .XX 12/11/16 11:45 12/11/16 11:46 Hydrocortisone Sodium Succinate 100 mg 100 mg Q8H IV PUSH 12/08/16 12:00 12/08/16 12:17 (Zosyn 3.375 Gm Premix) 50 ml @ 100 mls/hr Q6H IV 12/08/16 20:00 Vital Signs / I&O Vital Signs Date Time Temp Pulse Resp B/P Pulse Ox O2 Delivery O2 Flow Rate FiO2 12/08/16 16:00 99.9 79 22 102/60 96 114/62 12/08/16 16:00 40 12/08/16 15:35 95 45 12/08/16 15:00 82 12/08/16 12:00 45 12/08/16 12:00 100.5 80 20 107/56 93 110/61 12/08/16 10:35 45 12/08/16 09:10 93 45 12/08/16 08:00 99.9 84 21 104/54 93 105/56 12/08/16 08:00 50 12/08/16 08:00 79 104/54 105/56 12/08/16 07:00 77 12/08/16 04:03 93 50 12/08/16 04:00 98.8 80 17 105/59 97 106/57 12/08/16 04:00 40 12/08/16 00:00 40 12/08/16 00:00 76 16 96/63 96 94/52 5/22/17 23:58 96 50 12/07/16 23:00 78 12/07/16 20:56 96 35 12/07/16 20:00 40 12/07/16 20:00 99.3 78 20 97/58 96 93/57 I/O 12/07/16 12/07/16 12/07/16 12/08/16 12/08/16 12/08/16 07:00 15:00 23:00 07:00 15:00 23:00 Intake Total 744 ml 2793 ml 1240 ml 376 ml 1300 ml Output Total 270 ml 160 ml 347 ml 350 ml 200 ml Balance 474 ml 2633 ml 893 ml 26 ml 1100 ml Intake Oral 0 ml IV Total 744 ml 2793 ml 1240 ml 376 ml 1300 ml Output Urine Total 270 ml 160 ml 347 ml 350 ml 200 ml Stool Total 0 ml # Bowel Movements 0 0 0 Physical Exam GENERAL: Intubated, on the vent SKIN: Warm and dry. HEAD: Normocephalic. EYES: No scleral icterus. No injection or drainage. NECK: Supple, trachea midline. No JVD or lymphadenopathy. CARDIOVASCULAR: Regular rate and rhythm without murmurs, gallops, or rubs. RESPIRATORY: Breath sounds equal bilaterally. No accessory muscle use. GASTROINTESTINAL: Abdomen soft, non-tender, nondistended. MUSCULOSKELETAL: No cyanosis, or edema. Laboratory Laboratory Tests Test 12/07/16 12/08/16 12/08/16 22:42 06:15 13:18 Troponin I 0.65 NG/ML White Blood Count 18.8 TH/MM3 Red Blood Count 4.20 MIL/MM3 Hemoglobin 11.2 GM/DL Hematocrit 35.6 % Mean Corpuscular Volume 84.8 FL Mean Corpuscular Hemoglobin 26.8 PG Mean Corpuscular Hemoglobin 31.6 % Concent Red Cell Distribution Width 18.0 % Platelet Count 157 TH/MM3 Mean Platelet Volume 9.7 FL Neutrophils (%) (Auto) 81.7 % Lymphocytes (%) (Auto) 8.9 % Monocytes (%) (Auto) 7.3 % Eosinophils (%) (Auto) 1.7 % Basophils (%) (Auto) 0.4 % Neutrophils # (Auto) 15.4 TH/MM3 Lymphocytes # (Auto) 1.7 TH/MM3 Monocytes # (Auto) 1.4 TH/MM3 Eosinophils # (Auto) 0.3 TH/MM3 Basophils # (Auto) 0.1 TH/MM3 CBC Comment DIFF FINAL Differential Comment Sodium Level 145 MEQ/L Potassium Level 3.6 MEQ/L Chloride Level 110 MEQ/L Carbon Dioxide Level 27.2 MEQ/L Anion Gap 8 MEQ/L Blood Urea Nitrogen 21 MG/DL Creatinine 1.05 MG/DL Estimat Glomerular Filtration 49 ML/MIN Rate Random Glucose 166 MG/DL Calcium Level 7.7 MG/DL Phosphorus Level 2.6 MG/DL Magnesium Level 2.1 MG/DL Total Bilirubin 1.1 MG/DL Aspartate Amino Transf 26 U/L (AST/SGOT) Alanine Aminotransferase 30 U/L (ALT/SGPT) Alkaline Phosphatase 87 U/L Total Protein 5.5 GM/DL Albumin 2.1 GM/DL Random Vancomycin Level 4.5 COMMENT Blood Gas Puncture Site ART LINE Blood Gas Patient Temperature 98.6 Blood Gas HCO3 22 mmol/L Blood Gas Base Excess -2.5 mmol/L Blood Gas Oxygen Saturation 91 % Arterial Blood pH 7.38 Arterial Blood Partial 38 mmHg Pressure CO2 Arterial Blood Partial 72 mmHg Pressure O2 Arterial Blood Oxygen Content 14.3 Vol % Arterial Blood 2.0 % Carboxyhemoglobin Arterial Blood Methemoglobin 1.2 % Blood Gas Hemoglobin 11.1 G/DL Oxygen Delivery Device VENTILATOR Blood Gas Ventilator Setting CPAP 5/15PS Blood Gas Inspired Oxygen 45 % Imaging Last Impressions Chest X-Ray 12/08/16 0600 Signed Impressions: Service Date/Time: Thursday, December 08, 2016 04:57 - CONCLUSION: Worsening pulmonary edema and right lung base consolidation which may represent pneumonia. Maryellen Hobson MD Head CT 12/07/16 0000 Signed Impressions: Service Date/Time: Wednesday, December 07, 2016 02:21 - CONCLUSION: Chronic and small vessel ischemic changes without any evidence for acute hemorrhage or mass effect. Maryellen Hobsno MD CT Angiography 12/07/16 0000 Signed Impressions: Service Date/Time: Wednesday, December 07, 2016 02:27 - CONCLUSION: Bibasilar consolidation worse on the right. Maryellen Hobson MD Assessment and Plan Problem List: (1) Cardiopulmonary arrest with successful resuscitation (2) PEA (Pulseless electrical activity) (3) Septic shock (4) COPD (chronic obstructive pulmonary disease) (5) Pneumonia Assessment and Plan Still on pressors, but weaned down. Ventilator weaned as well, possibly ready for extubation tomorrow. Rhythm stable. Continue tx for septic shock. Prognosis still guarded. D/w pt's family, palliative care involved. Imer Yancey MD December 08, 2016 16:59
--- NOTE | 2016-12-08 17:55 | HHI.HCPN ---
Reason for visit a. To assist with evaluation and management of symptoms including: dyspnea, pain, weakness. b. To assist medical decision maker(s) with: better understanding of current medical conditions; weighing benefits/burdens of medical treatment options; making medical treatment decisions. . (ETHAN CEBALLOS) Subjective/Interval History Patient seen and examined in ICU. Son and daughter at bedside. Patient opes eyes to voice. Hypersensitive to touch, shakes her head when I touch her hand - ? anxiety. She follows some simple commands. Off all sedation. On CPAP. Remains on Levophed 7mcg, decreased from 12 earlier today. BP 102/60. Tmax 100.5. WBC remains elevated 18.8, decreased from 20.3. Blood cultures staph epidermidis, further ID to follow. Creatinine 1.05. Albumin 2.1. Total bilirubin 1.1. Chest x -ray worsening pulmonary edema and right lung base consolidation may represent pneumonia. Spoke with Dr. Berger, plan for possible medical extubation in the coming days. Requests decision regarding reintubation if medically extubated. . Family/friend interactions Met with daughter (Qian), son (Jerad). Also present Lexi Thomas LCSW. Dr. Yancey present for portion of the meeting. * Palliative care role, purpose, approach * Patient/family understanding of the current medical problems * Patient/family understanding of prognosis * Code Status [FULL CODE desired by both son and daughter "at least one more time"] * Advanced Directives - no written advanced directives. According to [place] statutes HCP decision making falls to son and daughter. * Patients goals of care as best understood from advance directives and/or conversations and/or values - I think it will be beneficial for palliative care to have conversations with patient regarding GOC if possible if able to be medically extubated. * Current medical treatment options and benefits/burdens of those options * Likely scenarios comparing ongoing aggressive care with a transition to comfort measures only * Questions answered to the best of my ability * Palliative care contact information provided Family (son and daughter) both desire continued aggressive care including FULL CODE and reintubation of medically extubated. Son and daughter would like to be present if patient medically extubated. Family is not ready to consider transition to comfort. I am not certain if they will be able to make end of life decisions, unless pt is unresponsive. Palliative care will continue to follow, hopefully we will be able to clarify patient wishes if medically extubated, though she has some underlying dementia and will need to evaluate capacity. It will certainly help family if we can find out the patient wishes. Daughter says she wants pt to "just in her sleep" then will say "I can't just let her and not do everything to keep her alive." She talks about quality of life being important to patient, not wanting to be a burden to her children, then talks about patient wanting to live for her children. Son says we should "try everything (referring to FULL CODE) at least one more time." . (ETHAN CEBALLOS) Advance Directives Living Will: Never completed Health Care Surrogate: Never completed Durable Power of Cement Production Plant Operator: Never completed (ETHAN CEBALLOS) Advance Directive Specifics Health Care Surrogate(s): Patient is currently incapacitated to make her own decisions, uncertain if she regained capacity. According to [place] statutes, health care proxy decision- making would fall to the majority of adult children. Patient has one son and one daughter. . (ETHAN CEBALLOS) Objective Vital Signs Date Time Temp Pulse Resp B/P Pulse Ox O2 Delivery O2 Flow Rate FiO2 12/08/16 16:00 99.9 79 22 102/60 96 114/62 12/08/16 16:00 40 12/08/16 15:35 95 45 12/08/16 15:00 82 12/08/16 12:00 45 12/08/16 12:00 100.5 80 20 107/56 93 110/61 12/08/16 10:35 45 12/08/16 09:10 93 45 12/08/16 08:00 99.9 84 21 104/54 93 105/56 12/08/16 08:00 50 12/08/16 08:00 79 104/54 105/56 12/08/16 07:00 77 12/08/16 04:03 93 50 12/08/16 04:00 98.8 80 17 105/59 97 106/57 12/08/16 04:00 40 12/08/16 00:00 40 12/08/16 00:00 76 16 96/63 96 94/52 12/07/16 23:58 96 50 5/22/17 23:00 78 12/07/16 20:56 96 35 12/07/16 20:00 40 12/07/16 20:00 99.3 78 20 97/58 96 93/57 Intake & Output 12/08/16 12/08/16 06:59 18:59 Intake Total 1616 ml 1300 ml Output Total 621 ml 200 ml Balance 995 ml 1100 ml IV Total 1616 ml 1300 ml Output Urine Total 621 ml 200 ml Stool Total 0 ml # Bowel Movements 0 Physical Exam CONSTITUTIONAL/GENERAL: This is an elderly, critically ill appearing patient on [facility] vent. TUBES/LINES/DRAINS: ETT, OG, PIV, right femoral central line, Left femoral A- line, Victoria, bilateral soft wrist restraints. SKIN: No jaundice, rashes, or lesions. Ecchymoses on upper/ lower extremities and chest. Skin tear left UE, dressing intact. Dressing to left norton. Bilateral LE cold to touch. ENT: Hard of hearing left ear better ear. CARDIOVASCULAR: Systolic murmur noted, regular. RESPIRATORY/CHEST: Symmetric, unlabored respirations on vent. Few scattered crackles bilateral bases. GASTROINTESTINAL: Abdomen soft, non-tender, nondistended. No guarding. Bowel sounds hypoactive. GENITOURINARY: Without palpable bladder distension. Victoria catheter in place. MUSCULOSKELETAL: Bilateral upper extremities with edema. No mottling or clubbing. NEUROLOGICAL: Awakens briefly to loud voice, nods yes/ no to some questions. Follows some simple commands. PSYCHIATRIC: ? anxiety, shakes head and quivers no when lightly touched on extremities. . (ETHAN CEBALLOSP-C) Diagnostic Tests Laboratory Laboratory Tests Test 12/06/16 12/06/16 12/06/16 12/07/16 23:28 23:44 23:54 00:55 Prothrombin Time 10.4 SEC (9.8-11.6) Prothromb Time International 0.9 RATIO Ratio Activated Partial 22.4 SEC Thromboplast Time (24.3-30.1) White Blood Count 20.3 TH/MM3 (4.0-11.0) Red Blood Count 4.99 MIL/MM3 (4.00-5.30) Hemoglobin 13.1 GM/DL (11.6-15.3) Bedside Hemoglobin 15.0 G/DL (12.0-17.0) Hematocrit 43.4 % (35.0-46.0) Bedside Hematocrit 44.0 % (38.0-51.0) Mean Corpuscular Volume 87.0 FL (80.0-100.0) Mean Corpuscular Hemoglobin 26.3 PG (27.0-34.0) Mean Corpuscular Hemoglobin 30.3 % Concent (32.0-36.0) Red Cell Distribution Width 18.2 % (11.6-17.2) Platelet Count 237 TH/MM3 (150-450) Mean Platelet Volume 9.5 FL (7.0-11.0) Neutrophils (%) (Auto) 60.4 % (16.0-70.0) Lymphocytes (%) (Auto) 31.4 % (9.0-44.0) Monocytes (%) (Auto) 6.5 % (0.0-8.0) Eosinophils (%) (Auto) 1.2 % (0.0-4.0) Basophils (%) (Auto) 0.5 % (0.0-2.0) Neutrophils # (Auto) 12.3 TH/MM3 (1.8-7.7) Lymphocytes # (Auto) 6.4 TH/MM3 (1.0-4.8) Monocytes # (Auto) 1.3 TH/MM3 (0-0.9) Eosinophils # (Auto) 0.2 TH/MM3 (0-0.4) Basophils # (Auto) 0.1 TH/MM3 (0-0.2) CBC Comment AUTO DIFF Differential Total Cells 100 Counted Neutrophils % (Manual) 65 % (16-70) Band Neutrophils % 2 % (0-6) Lymphocytes % 17 % (9-44) Monocytes % 3 % (0-8) Basophils % 1 % (0-2) Neutrophils # (Manual) 13.6 TH/MM3 (1.8-7.7) Differential Comment FINAL DIFF MANUAL Atypical Lymphocytes 12 % (0-0) Platelet Estimate NORMAL (NORMAL) Platelet Morphology Comment NORMAL (NORMAL) Red Cell Morphology Comment NORMAL (NORMAL) D-Dimer Quantitative (PE/DVT) 13.34 MG/L FEU (0.00-0.50) Bedside Sodium 139 MMOL/L (138-146) Bedside Potassium 4.3 MMOL/L (3.5-4.9) Bedside Chloride 104 MMOL/L (98-109) Bedside Blood Urea Nitrogen 24 MG/DL (8-26) Bedside Creatinine 1.1 MG/DL (0.6-1.0) Bedside Glucose 291 MG/DL (60-95) Calcium Level 8.7 MG/DL (8.5-10.1) Phosphorus Level 3.7 MG/DL (2.5-4.9) Magnesium Level 4.2 MG/DL (1.5-2.5) Total Creatine Kinase 62 U/L (26-192) Troponin I 0.03 NG/ML (0.02-0.05) B-Type Natriuretic Peptide 118 PG/ML (0-100) Blood Gas Puncture Site RFEM LFEM Blood Gas Patient Temperature 98.6 98.6 Venous Blood pH 7.28 (7.360-7.400) Venous Blood Partial Pressure 43 mmHg (44-48) CO2 Venous Blood Partial Pressure 29 mmHg (35-40) O2 Venous Blood HCO3 20 mmol/L (22-26) Venous Blood Oxygen Saturation 46 % (70-76) Venous Blood Oxygen Content 8.0 Vol % (9.0-17.0) Venous Blood Base Excess -6.1 mmol/L (-2-2) Oxygen Delivery Device VENTILATOR VENTILATOR Blood Gas Ventilator Setting AC/16/500/PEEP5 AC/16/500/PEEP5 Blood Gas Inspired Oxygen 100 % 100 % Blood Gas HCO3 25 mmol/L (22-26) Blood Gas Base Excess 0.7 mmol/L (-2-2) Blood Gas Oxygen Saturation 97 % (90-100) Arterial Blood pH 7.40 (7.380-7.420) Arterial Blood Partial 41 mmHg (38-42) Pressure CO2 Arterial Blood Partial 119 mmHG Pressure O2 (61-120) Arterial Blood Oxygen Content 16.9 Vol % (12.0-20.0) Arterial Blood 1.4 % (0-4) Carboxyhemoglobin Arterial Blood Methemoglobin 0.3 % (0-2) Blood Gas Hemoglobin 12.3 G/DL (12.0-16.0) Urine Color YELLOW (YELLW/STRAW) Urine Turbidity HAZY (CLEAR) Urine pH 5.5 (5.0-8.5) Urine Specific [place] 1.018 (1.002-1.035) Urine Protein 100 mg/dL (NEG-TRACE) Urine Glucose (UA) NEG mg/dL (NEG) Urine Ketones NEG mg/dL (NEG) Urine Occult Blood NEG (NEG) Urine Nitrite NEG (NEG) Urine Bilirubin NEG (NEG) Urine Urobilinogen 2.0 MG/DL (LESS THAN 2.0) Urine Leukocyte Esterase TRACE (NEG) Urine RBC 2 /hpf (0-3) Urine WBC 6 /hpf (0-5) Urine Squamous Epithelial 1 /hpf (0-5) Cells Urine Calcium Oxalate Crystals RARE /hpf (NONE) Urine Bacteria RARE /hpf (NONE) Urine Hyaline Casts INNUM /lpf (RARE) Urine Mucus FEW /lpf (OCC) Microscopic Urinalysis Comment CATH-CULTURE IND Test 12/07/16 12/07/16 12/07/16 12/07/16 00:56 01:59 02:58 03:30 Lactic Acid Level 9.3 mmol/L 4.0 mmol/L (0.4-2.0) (0.4-2.0) Blood Gas Puncture Site LT FEMORAL Blood Gas Patient Temperature 98.6 Blood Gas HCO3 26 mmol/L (22-26) Blood Gas Base Excess 2.1 mmol/L (-2-2) Blood Gas Oxygen Saturation 93 % (90-100) Arterial Blood pH 7.43 (7.380-7.420) Arterial Blood Partial 40 mmHg (38-42) Pressure CO2 Arterial Blood Partial 72 mmHG Pressure O2 (61-120) Arterial Blood Oxygen Content 16.2 Vol % (12.0-20.0) Arterial Blood 1.5 % (0-4) Carboxyhemoglobin Arterial Blood Methemoglobin 0.5 % (0-2) Blood Gas Hemoglobin 12.4 G/DL (12.0-16.0) Oxygen Delivery Device PRVC/AC Blood Gas Inspired Oxygen 100 % Nasal Screen MRSA (PCR) MRSA DETECTED (NOT DETECT) Test 12/07/16 12/07/16 12/07/16 12/08/16 06:25 09:00 22:42 06:15 Troponin I 2.46 NG/ML 2.11 NG/ML 0.65 NG/ML (0.02-0.05) (0.02-0.05) (0.02-0.05) Magnesium Level 2.5 MG/DL 2.1 MG/DL (1.5-2.5) (1.5-2.5) White Blood Count 18.8 TH/MM3 (4.0-11.0) Red Blood Count 4.20 MIL/MM3 (4.00-5.30) Hemoglobin 11.2 GM/DL (11.6-15.3) Hematocrit 35.6 % (35.0-46.0) Mean Corpuscular Volume 84.8 FL (80.0-100.0) Mean Corpuscular Hemoglobin 26.8 PG (27.0-34.0) Mean Corpuscular Hemoglobin 31.6 % Concent (32.0-36.0) Red Cell Distribution Width 18.0 % (11.6-17.2) Platelet Count 157 TH/MM3 (150-450) Mean Platelet Volume 9.7 FL (7.0-11.0) Neutrophils (%) (Auto) 81.7 % (16.0-70.0) Lymphocytes (%) (Auto) 8.9 % (9.0-44.0) Monocytes (%) (Auto) 7.3 % (0.0-8.0) Eosinophils (%) (Auto) 1.7 % (0.0-4.0) Basophils (%) (Auto) 0.4 % (0.0-2.0) Neutrophils # (Auto) 15.4 TH/MM3 (1.8-7.7) Lymphocytes # (Auto) 1.7 TH/MM3 (1.0-4.8) Monocytes # (Auto) 1.4 TH/MM3 (0-0.9) Eosinophils # (Auto) 0.3 TH/MM3 (0-0.4) Basophils # (Auto) 0.1 TH/MM3 (0-0.2) CBC Comment DIFF FINAL Differential Comment Sodium Level 145 MEQ/L (136-145) Potassium Level 3.6 MEQ/L (3.5-5.1) Chloride Level 110 MEQ/L (98-107) Carbon Dioxide Level 27.2 MEQ/L (21.0-32.0) Anion Gap 8 MEQ/L (5-15) Blood Urea Nitrogen 21 MG/DL (7-18) Creatinine 1.05 MG/DL (0.50-1.00) Estimat Glomerular Filtration 49 ML/MIN (>89) Rate Random Glucose 166 MG/DL (74-106) Calcium Level 7.7 MG/DL (8.5-10.1) Phosphorus Level 2.6 MG/DL (2.5-4.9) Total Bilirubin 1.1 MG/DL (0.2-1.0) Aspartate Amino Transf 26 U/L (15-37) (AST/SGOT) Alanine Aminotransferase 30 U/L (10-53) (ALT/SGPT) Alkaline Phosphatase 87 U/L (45-117) Total Protein 5.5 GM/DL (6.4-8.2) Albumin 2.1 GM/DL (3.4-5.0) Random Vancomycin Level 4.5 COMMENT Test 12/08/16 13:18 Blood Gas Puncture Site ART LINE Blood Gas Patient Temperature 98.6 Blood Gas HCO3 22 mmol/L (22-26) Blood Gas Base Excess -2.5 mmol/L (-2-2) Blood Gas Oxygen Saturation 91 % (90-100) Arterial Blood pH 7.38 (7.380-7.420) Arterial Blood Partial 38 mmHg (38-42) Pressure CO2 Arterial Blood Partial 72 mmHg Pressure O2 (61-120) Arterial Blood Oxygen Content 14.3 Vol % (12.0-20.0) Arterial Blood 2.0 % (0-4) Carboxyhemoglobin Arterial Blood Methemoglobin 1.2 % (0-2) Blood Gas Hemoglobin 11.1 G/DL (12.0-16.0) Oxygen Delivery Device VENTILATOR Blood Gas Ventilator Setting CPAP 5/15PS Blood Gas Inspired Oxygen 45 % (ETHAN CEBALLOS) Result Diagram: 12/08/16 0615 12/08/1615 Microbiology Microbiology Date/Time Procedure Status Source Growth 12/07/16 00:30 Aerobic Blood Culture - Preliminary Resulted Blood Peripheral Staphylococcus Epidermidis 12/07/16 00:30 Anaerobic Blood Culture - Preliminary Resulted Blood Peripheral NO GROWTH IN 1 DAY 12/07/16 00:40 Aerobic Blood Culture - Preliminary Resulted Blood Peripheral NO GROWTH IN 1 DAY 12/07/16 00:40 Anaerobic Blood Culture - Preliminary Resulted Blood Peripheral NO GROWTH IN 1 DAY 12/07/16 00:55 Urine Culture - Preliminary Resulted Urine Catheterized Urine NO GROWTH IN 24 HOURS. . Imaging Last Impressions Chest X-Ray 12/08/16 0600 Signed Impressions: Service Date/Time: Thursday, December 08, 2016 04:57 - CONCLUSION: Worsening pulmonary edema and right lung base consolidation which may represent pneumonia. Maryellen Hobson MD Head CT 12/07/16 0000 Signed Impressions: Service Date/Time: Wednesday, December 07, 2016 02:21 - CONCLUSION: Chronic and small vessel ischemic changes without any evidence for acute hemorrhage or mass effect. Maryellen Hobson MD CT Angiography 12/07/16 0000 Signed Impressions: Service Date/Time: Wednesday, December 07, 2016 02:27 - CONCLUSION: Bibasilar consolidation worse on the right. Maryellen Hobson MD . Procedures * 12/07/16 - left femoral arterial line placement * 12/06/16 - right triple lumen central line placement * 12/06/16 - Cardiac arrest x 3, Intubation . (ETHAN CEBALLOS) Assessment and Plan Disease Oriented Problem List: (1) Septic shock (2) Pneumonia (3) PEA (Pulseless electrical activity) (4) Bradycardia (5) COPD (chronic obstructive pulmonary disease) (6) Cardiopulmonary arrest with successful resuscitation (7) Lactic acidosis (8) Leukocytosis Symptom Scale: (1) Pain 0-10 Scale: Unable to quantify (2) Dyspnea 0-10 Scale: Unable to quantify (3) Weakness 0-10 Scale: Unable to quantify Pertinent Non-Medical Issues Psychosocial: . Supported by son and daughter. Spiritual: Sabianism josi, welcomes guest experience representative support. Legal: Patient is currently incapacitated to make her own decisions, uncertain if she regained capacity. According to [place] statutes, health care proxy decision-making would fall to the majority of adult children. Patient has one son and one daughter. Ethical issues impacting care: No known concerns at this time. . Important Contacts * Qian Vargas, daughter/ co-HCP: [phone] (cell) or [phone] (work ) * Jerad Santana, son/co-HCP: [phone] . Prognosis Ms. Santana is an 86 year old female with dementia, oxygen dependent COPD admitted post cardiac arrest with underlying cardiomyopathy and COPD/ resp failure and pneumonia. Given her advanced age, comorbidities, repeat hospitalizations for recurrent UTI, aspiration pneumonia and sepsis her overall prognosis is poor. . Code Status: Full Code Plan * Patient is currently incapacitated to make her own decisions, uncertain if she regained capacity. According to [place] statutes, health care proxy decision-making would fall to the majority of adult children. Patient has one son and one daughter, both (Qian and Jerad) want to serve as health care proxy decision makers. * FULL CODE * 12/08/16 Palliative care meeting: Family (son and daughter) both desire continued aggressive care including FULL CODE and reintubation of medically extubated. Son and daughter would like to be present if patient medically extubated. Family is not ready to consider transition to comfort. I am not certain if they will be able to make end of life decisions, unless pt is unresponsive. Palliative care will continue to follow, hopefully we will be able to clarify patient wishes if medically extubated, though she has some underlying dementia and will need to evaluate capacity. It will certainly help family if we can find out the patient wishes. Daughter says she wants pt to "just in her sleep" then will say "I can't just let her and not do everything to keep her alive." She talks about quality of life being important to patient, not wanting to be a burden to her children, then talks about patient wanting to live for her children. Son says we should "try everything ( referring to FULL CODE) at least one more time." * [employer] Developer support requested. * Discussed with Dr. Berger, Dr. Yancey and nurse, Stormy. * SYMPTOMS: Pain: potential sources include recent cardiopulmonary resuscitation , intubation, tubes, bedbound status and infection. Fentanyl drip stopped. Will monitor. Dyspnea: remains on mechanical ventilation, underlying COPD, uncertain patient will be able to be weaned from mechanical vent. On CPAP hopeful for medical extubation in coming day(s). Weakness: secondary to recent hospitalizations, cardiopulmonary resuscitation, bedbound status, infection. No new medication recommendations at this time. * Palliative care will continue to follow throughout hospital course to assist with symptom management and clarification of goals as needed. . (EHTAN CEBALLOS) Time Spent Total Floor Time (mins): 120 Face to Face Time (mins): 90 >50% Counseling/Coord of Care: Yes (ETHAN CEBALLOS) Attestation To help prompt me to consider important information that might be impacting today's encounter and assessment, information from prior notes written by myself or my colleagues may have been "brought forward" into today's note. My signature on this note, however, is an attestation that I personally performed the exam, history, and/or decision-making noted today, and, unless otherwise indicated, the interactions with patient, family, and staff as well as the review of records all occurred today. I also attest that the listed assessment and stated plan reflect my best clinical judgment today based on the combination of historical information, prior notes, and today's exam/ interactions. When time spent is documented, it refers only to time spent today by the signer, or if indicated, combined time spent today by collaborating physician/nurse practitioner. (ETHAN CEBALLOS) Collaborating MD Comments . Chart reviewed. Case discussed with palliative care SAUSAGE STUFFER. Above SAUSAGE STUFFER note reviewed and I concur. . (Sea Dewey MD) ETHAN CEBALLOS December 08, 2016 17:55 Sea Dewey MD December 15, 2016 16:24
[2016-12-08] MEDS: PIPERACIL-TAZO 3.375 GM PREMIX 50 ML IV SCH (20:49)
[2016-12-09] VITALS (16 sets, daily range): BP systolic 90–135; BP diastolic 45–78; PULSE 60–75; RESP 15–29; TEMP 97.3–98.9; O2SAT 90–100
[2016-12-09] MEDS: HYDROCORTISONE SOD SUCCINATE 100 MG VIAL IV PUSH SCH ×3 (03:14→20:27)
[2016-12-09] MEDS: CHLORHEXIDINE GLUCONATE 2 % 1 PACK (2 CLOTHS) TOP SCH (03:15)
[2016-12-09] MEDS: PIPERACIL-TAZO 3.375 GM PREMIX 50 ML IV SCH ×4 (03:15→20:27)
[2016-12-09] MEDS: NOREPINEPHRINE-DEXTROSE DRIP 250 ML IV SCH ×2 (03:15→16:48)
[2016-12-09] MEDS: INSULIN ASPART SUPPLEMENTAL SCALE SQ SCH ×4 (03:15→21:14)
[2016-12-09] MEDS: RESP: ALBUTEROL 2.5 MG/IPRATROPIUM 0.5 MG NEB (SCH) NEB ×4 (03:42→20:50)
--- NOTE | 2016-12-09 05:06 | RADRPT ---
EXAM DATE/TIME: 12/09/2016 03:59 [facility] COMPARISON: CHEST SINGLE AP, December 08, 2016, 4:57. INDICATIONS : Shortness of breath. MEDICAL HISTORY : None. SURGICAL HISTORY : None. ENCOUNTER: Subsequent ACUITY: 3 days PAIN SCORE: Non-responsive. LOCATION: Bilateral chest FINDINGS: Right basilar opacity is present may be due to a combination of consolidation and or pleural effusion . Left lung base airspace process has not changed. ET tube, and NG tube have not changed. CONCLUSION: No appreciable change. Maryellen Hobson MD on December 09, 2016 at 5:03 Board Certified Radiologist. This report was verified electronically.
[2016-12-09 06:38] LABS: AUTOMATED NEUTROPHIL # 14.6 TH/MM3 (1.8-7.7); BASOPHIL % 0.1 % (0.0-2.0); HEMATOCRIT 34.4 % (35.0-46.0); HEMO FLAGS DIFF FINAL; LYMPH % 3.6 % (9.0-44.0); LYMPHOCYTE # 0.6 TH/MM3 (1.0-4.8); MEAN CELL VOLUME 84.5 FL (80.0-100.0); MEAN CORPUSCULAR HEMOGLOBIN 25.9 PG (27.0-34.0); MEAN CORPUSCULAR HGB CONC 30.7 % (32.0-36.0); MONO % 2.9 % (0.0-8.0); NEUT % 93.4 % (16.0-70.0); PLATELET COUNT 131 TH/MM3 (150-450); RED BLOOD COUNT 4.07 MIL/MM3 (4.00-5.30); WHITE BLOOD COUNT 15.6 TH/MM3 (4.0-11.0)
[2016-12-09 06:56] LABS: ANION GAP 9 MEQ/L (5-15); AST (GOT) 20 U/L (15-37); BICARBONATE 25.1 MEQ/L (21.0-32.0); BLOOD UREA NITROGEN 19 MG/DL (7-18); CHLORIDE 110 MEQ/L (98-107); GLOMERULAR FILTRATION RATE 65 ML/MIN (>89); POTASSIUM 3.6 MEQ/L (3.5-5.1); SODIUM (NA) 144 MEQ/L (136-145)
[2016-12-09 06:59] LABS: ALKALINE PHOSPHATASE 80 U/L (45-117); ALT (GPT) 23 U/L (10-53); TOTAL BILIRUBIN ADULT 0.8 MG/DL (0.2-1.0)
[2016-12-09] MEDS: DOCUSATE SODIUM 100 MG CAP PO SCH (07:31)
[2016-12-09] MEDS: HEPARIN SODIUM - SQ 10,000 UNITS/ML VIAL SQ SCH (07:31)
[2016-12-09] MEDS: AZITHROMYCIN INJ 500 MG in SODIUM CHLOR 0.9% 250 ML INJ 250 ML IV SCH (07:32)
[2016-12-09] MEDS: PANTOPRAZOLE SODIUM 40 MG VIAL IV SCH (07:32)
[2016-12-09] MEDS: SODIUM CHLORIDE 0.9% FLUSH 10 ML FLUSH SCH ×2 (07:32→20:30)
[2016-12-09] MEDS: CHLORHEXIDINE 0.12% (ORAL KIT) 15 ML CUP MT SCH ×2 (07:33→20:00)
--- NOTE | 2016-12-09 10:48 | HHI.HCPN ---
Met with son briefly at patient's bedside. Later daughter and cousin arrived. Ms. Santana awakes easily to verbal stimuli. Appears more hypersensitive to verbal stimuli today, exhibited yesterday with touch. Appears to be tracking to sound. Spoke with nurse who reports Ms. Santana remains on CPAP, appears to be tolerating. Family inquires about possible medical extubation. Daughter expressed some concerns and questions. Answered to the best of my ability. Family reports they will be at patient's bedside today. Confirm they have palliative care contact information. Will continue to follow to assist with goals of care conversation and provide support. Later in the day spoke with daughter, son, and cousin at bedside. Ms. Santana medically extubated, appears to be resting comfortably in no apparent distress. Appears very lethargic, does not open eyes much to verbal stimuli. Still appears hypersensitive at times. Son and daughter are very concerned and adamant they do not want an NG tube placed in their mother. Understand swallow test should be performed in coming day(s). Son, daughter, and cousin expressed concern of the patient "starving". Offered support. Nurse also in room and explained above. Palliative care will continue to follow. See EDY Echavarria progress note for additional notes. Lexi Thomas HEALTH SPECIALIST, CRYPTOGRAPHIC TECHNICIAN December 09, 2016 10:48
[2016-12-09] MEDS ORDERED: SENNOSIDES SYRUP 8.8 MG/5 ML CUP PO ONE (11:00)
--- NOTE | 2016-12-09 11:01 | HHI.CCPN ---
Subjective Remarks/Hospital Course 86 yo WF with PMH of COPD on 2 L home O2, CHF who is brought in by [facility] after initial call for lethargy. [facility] reported that she was in Torsades. They started to administer magnesium sulfate and administered partial dose when the IV blew. She was the shocked for Vtach. She was intubated after receiving Ativan 4 mg IV and etomidate 20 mg IV. She was then noted to be in asystole. She was given epinephrine and had ROSC. EKG upon arrival to the emergency department demonstrated an irregular rhythm that appears to be slow A. fib. Due to concern LBBB a STEMI alert was called. Patient subsequently had a recurrent cardiac arrest where she had bradycardia followed by asystole at 23: 25 for 10 minutes (received Epi x2, bicarb x1 amp, calcium carbonate x1) and then another code at 23:48 for 4 minutes (received epi x3, sodium bicarb x2 amps). Dr. Ball discussed with Dr. Hawley and he cancelled STEMI alert. Patient remains hypotensive post-arrest and is currently on Epinephrine drip and Dr. Blal has placed a R femoral central line. Her daughter states that yesterday patient was complaining of bilateral calf pain (new complaint) and took some Tramadol. Today she was getting ready for bed and ambulating with a walker but was not standing up completely straight and her daughter states "I knew something was wrong". She states that her fingers were cool and that she increased O2 from 2 L to 4L because O2 sat was not picking up. Daughter was urging her to go to the hospital. She then began "staring off" with "eyes flickering" so her daughter called 911. Her daughter states she was speaking with the patient during this time and patient was able to verbally respond saying "I am tired". Of note, patient has had recurrent hospitalizations for UTI and aspiration and has been on a pureed diet with thickened liquids however tonight she did eat some birthday cake for her daughter's birthday. Patient has one prior intubation for COPD in 2002. She was also hospitalized September 09 in [facility] for UTI and pneumonia for 9 days. She then went to rehab and was readmitted to [facility] for sepsis , UTI, pneumonia and was hospitalized for 2 weeks (on pressors for 3-4 days, not intubated). She was discharged to rehab and has now been home at her daughter's house since October 24, 2016. She was started on an unknown antibiotic and had taken one dose tonight. Her daughter states this was started in anticipation of urologic procedure by Dr. Gutierrez scheduled for later this week for intravesicular antibiotics. Patient has also had a cough x2 days. No fever. Her daughter states that she made a living will during a past hospitalization and said "she wanted everything done unless she had no hope of improving or if she was going to be a vegetable. 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 SUBJ 12/07: Remains intubated, not on sedation. epinephrine weaned off. Levophed at 5 mcg/min. Opens eyes to stimulation. Weakly follows commands. Family at bedside. Cardiac arrest possible not primary but secondary to severe walt pneumonia, sev sepsis and hypoxia 12/08: Awakens off sedation and follows commands. Remains orally intubated on mechanical ventilation. Hypotensive on Levophed 12 mics per minute. Subjective 12/09 - yesterday awake off all sedation follows commands. Currently not on tube feeds. No bowel movement. Tmax 99. Objective Vital Signs Date Time Temp Pulse Resp B/P Pulse Ox O2 Delivery O2 Flow Rate FiO2 12/09/16 08:49 35 12/09/16 08:49 99 12/09/16 08:00 97.3 63 18 90/53 93/45 12/07/16 01:45 Ventilator 12/06/16 23:20 15.00 Intake and Output 12/08/16 12/08/16 12/09/16 08:00 16:00 00:00 Intake Total 376 ml 1300 ml 1414 ml Output Total 350 ml 200 ml 400 ml Balance 26 ml 1100 ml 1014 ml Result Diagram: 12/09/16 0615 12/09/16 0615 Other Results Microbiology Date/Time Procedure Status Source Growth 12/07/16 00:55 Urine Culture - Final Complete Urine Catheterized Urine NO GROWTH IN 48 HOURS. 12/07/16 00:40 Aerobic Blood Culture - Preliminary Resulted Blood Peripheral NO GROWTH IN 1 DAY 12/07/16 00:40 Anaerobic Blood Culture - Preliminary Resulted Blood Peripheral NO GROWTH IN 1 DAY Imaging Last Impressions Chest X-Ray 12/09/16 0600 Signed Impressions: Service Date/Time: Friday, December 09, 2016 03:59 - CONCLUSION: No appreciable change. Maryellen Hobson MD Head CT 12/07/16 0000 Signed Impressions: Service Date/Time: Wednesday, December 07, 2016 02:21 - CONCLUSION: Chronic and small vessel ischemic changes without any evidence for acute hemorrhage or mass effect. Maryellen Hobson MD CT Angiography 12/07/16 0000 Signed Impressions: Service Date/Time: Wednesday, December 07, 2016 02:27 - CONCLUSION: Bibasilar consolidation worse on the right. Maryellen Hobson MD Objective Remarks GENERAL: 86-year-old female, critically ill currently orotracheally intubated SKIN: Warm and dry. HEAD: Atraumatic. Normocephalic. EYES: Pupils about 3 mm bilaterally and reactive. No scleral icterus. No injection or drainage. ENT: No nasal bleeding or discharge. Mucous membranes pink and moist. NECK: Trachea midline. No JVD. CARDIOVASCULAR: RRR. S1, S2 no S4. RESPIRATORY: Essentially clear to auscultation bilaterally without wheezes, rales or rhonchi GASTROINTESTINAL: Abdomen soft, nontender, nondistended. Hypoactive bowel sounds appreciated MUSCULOSKELETAL: Extremities without noted in peripheral edema. Scar overlying medial aspect of right ankle without erythema or drainage NEUROLOGICAL: Awakens off sedation, has spontaneous eye opening, pupils reactive , positive cough, positive gag , most both upper extremities A/P Assessment and Plan NEURO/PSYCH: Acute encephalopathy Hard of hearing - hearing aid left ear Dementia disorder not otherwise specified Depression Patient is currently on Target RASS -2 Daily sedation vacation 12/07 - CT brain revealed chronic and small vessel ischemic changes Patient previously on Namenda 20 mg daily and Aricept 10 mg daily for dementia Patient previously on bupropion 150 mg daily, BuSpar 2.5 mg daily and Mirabreq 25 mg daily for depression RESP: Acute respiratory failure COPD with 2 L home oxygen requirement. Follows Dr. Pratt Tobacco abuse Bronchiectasis Orotracheally intubated by [facility]. ET tube pulled back as it was in right mainstem bronchus. Currently on PSV trial in attempt to extubate Ventilator bundle Currently on duo nebs every 6 hours without pedal every 2 hours as needed for breakthrough Hydrocortisone 100 mg IV every 8 hours started 12/08. Chest x-ray 12/06/16ET tube is at right mainstem. Opacification right lower lobe with complete, it right pleural effusion, tortuous appearing aorta CT pulmonary angiogram - No PE. Right lower lobe consolidation and bronchiectasis. LLL consolidation. CV: Cardiac arrest - reportedly presenting rhythm of Torsades/V tach per [facility]. Asystole in ED x2 Chronic systolic heart failure - ejection fraction 25% Elevated troponin Hypertension Patient had Torsades/Vtach per [facility] but no shockable rhythm in ED. Elevated troponin, cardiology consult noted Dr. hood. 12/07 echocardiogram LVEF 25%, hypokinesis of the mid distal, anteroseptal, anterior, anterior lateral and apical segments, moderate TR. Right atrium dilatation. CASEY 52 mmHg Norepinephrine at 5 mics grams per minute to maintain mean arterial pressure greater than 65. Placed on Uli Trac for hemodynamic monitoring as she is no longer having significant ectopy. Cardiac output 3.1. SVV 5 Off epinephrine. Stress dose steroids GI: Chronic aspiration Dysphagia Hiatal hernia Tube feeds have not been initiated. Swallow evaluation after extubation Patient is on Prilosec 20 mg daily at home. Currently Protonix 40 mg IV daily Colace/senna Senokot for bowel regimen Patient is on a modified diet (pured with thickened liquids). FEN/RENAL: Acute kidney injury - resolved Hypermagnesemia (following Magnesium administration) Monitor intake and output, monitor electrolytes, replace electrolytes as indicated Received IV contrast 12/07. Avoid nephrotoxins. ID: Acute aspiration pneumonia h/o recurrent UTI (uncertain MDRO history) Chest x-ray with right lower lobe infiltrate CTA chest with RLL consolidation and bronchiectasis. Empiric coverage with Zosyn, Vancomycin. Pertinent cultures Blood cultures 2 - 12/07 - no growth urine - 12/07 - no growth HEME: Leukocytosis Normocytic anemia Thrombocytopenia Monitor CBC daily. Follow trends ENDO: Acute hyperglycemia Hypothyroidism Low-dose insulin sliding scale with bedside glucose every 6 hours Takes nature thyroid 32.4 mg daily Prophylaxis - GI - Protonix - DVT - SCD/heparin subcutaneous ACCESS: Right femoral central venous line placed by Dr. Ball 12/07 #3 left femoral art line placed 12/07 day #3 Critical Care: The total critical care time was 35 minutes. Time to perform other separately billable procedures was not included in the critical care time. Toño Vergara MD December 09, 2016 11:00
[2016-12-09] MEDS: SODIUM CHLOR 0.9% 1000 ML INJ 1,000 ML IV SCH (12:06)
[2016-12-09] MEDS: VANCOMYCIN INJ 1,500 MG in SODIUM CHLORID 0.9% 500 ML INJ 500 ML IV SCH (12:06)
--- NOTE | 2016-12-09 13:20 | HHI.PR ---
Subjective Remarks She is awake and off the vent .. ABG's were OK. CXR shows basal infiltrates Has pain in chest. Objective Vital Signs Date Time Temp Pulse Resp B/P Pulse Ox O2 Delivery O2 Flow Rate FiO2 12/09/16 12:00 92 Nasal Cannula 4.00 12/09/16 11:38 96 Nasal Cannula 4 12/09/16 11:38 96 Nasal Cannula 4.00 12/09/16 08:49 35 12/09/16 08:49 99 35 12/09/16 08:00 45 12/09/16 08:00 97.3 63 18 90/53 100 93/45 12/09/16 07:00 61 12/09/16 06:00 72 100/66 135/77 12/09/16 04:04 99 45 12/09/16 04:00 45 12/09/16 04:00 98.8 60 15 110/65 97 104/57 12/09/16 00:00 45 12/09/16 00:00 98.6 75 22 131/63 100 109/78 12/08/16 23:43 98 45 12/08/16 23:00 67 12/08/16 20:48 97 45 12/08/16 20:00 45 12/08/16 20:00 98.2 69 15 96/55 96 103/57 12/08/16 18:00 79 93/54 88/61 12/08/16 16:00 99.9 79 22 102/60 96 114/62 12/08/16 16:00 40 12/08/16 15:35 95 45 12/08/16 15:00 82 I/O 12/08/16 12/08/16 12/08/16 12/09/16 12/09/16 12/09/16 07:00 15:00 23:00 07:00 15:00 23:00 Intake Total 376 ml 1300 ml 1414 ml 682 ml Output Total 350 ml 200 ml 400 ml 200 ml Balance 26 ml 1100 ml 1014 ml 482 ml IV Total 376 ml 1300 ml 1414 ml 682 ml Output Urine Total 350 ml 200 ml 400 ml 200 ml Stool Total 0 ml # Bowel Movements 0 0 0 Result Diagram: 12/09/1615 12/09/16 0615 Objective Remarks This is an elderly thinly built white female intubated HEENT: Head normocephalic. Pupils are reactive. Tongue moist. Throat is clear. NECK: Supple. No lymphadenopathy. CHEST: Distant breath sounds with expiratory wheezes with occasional crackles at the right base. HEART: The heart sounds are regular. S1 and S2. ABDOMEN: Soft and benign. Bowel sounds are active. EXT No edema. Moves all well. Assessment and Plan Assessment and Plan IMPRESSION 1. COPD with acute exacerbation 2. Basilar pneumonia 3. Anxiety 4. Acute respiratory failure 5. Aspiration pneumonia 6. Severe COPD with emphysema 7. Dementia 8. History of atrial fibrillation 9. Status post cardiac arrest. Plan : 1. Wean O2 to 3l 2. CXR in am 3. Continue antibiotics. 4. Nebs qid , duoneb. 5. Cont solucortef 100 mg Bid. 6. Toradol 15 mg q6h prn . 7. Swallow test Guillermo Pratt MD December 09, 2016 13:20
[2016-12-09] MEDS: KETOROLAC TROMETHAMINE 30 MG/ML (IVP) VIAL IV PUSH PRN (13:30)
--- NOTE | 2016-12-09 16:29 | RADRPT ---
EXAM DATE/TIME: 12/09/2016 15:35 [facility] COMPARISON: CHEST SINGLE AP, December 09, 2016, 3:59. INDICATIONS : Left shoulder pain. MEDICAL HISTORY : None. SURGICAL HISTORY : None. ENCOUNTER: Initial ACUITY: 3 days PAIN SCORE: Non-responsive. LOCATION: Left shoulder. FINDINGS: Antegrade intramedullary brenda is noted across the left proximal humerus with healed fracture deformity of the proximal humeral shaft. There is osteophyte formation at the undersurface of the acromion. No acute fracture or dislocation. Abnormal opacity at the left lung base is identified, and unchanged. CONCLUSION: Postoperative and remote posttraumatic changes of the left proximal humerus. Vishal Livingston MD on December 09, 2016 at 16:26 Board Certified Radiologist. This report was verified electronically.
--- NOTE | 2016-12-09 16:29 | HHI.HCPN ---
Reason for visit a. To assist with evaluation and management of symptoms including: dyspnea, dysphagia, pain, weakness. b. To assist medical decision maker(s) with: better understanding of current medical conditions; weighing benefits/burdens of medical treatment options; making medical treatment decisions. . (Linh Echavarria) Subjective/Interval History Patient seen and examined in ICU. Son, daughter and friend were at bedside. She is now extubated, on 3 L nasal cannula, remains lethargic but able to make her needs known. She complains of pain in her chest and left shoulder. Family is requesting education regarding options for treatment for aspiration pneumonia which is recurrent. They wish to understand the benefits and burdens of tube feeding. Family was updated regarding current clinical findings including worsening pulmonary edema and right lung base consolidation likely representing pneumonia on chest x-ray. Her white blood cell count continues to decline and is 15.6 today. Hemoglobin is 10.5 and hematocrit 34.4 with a decreasing platelet count of 131. Kidney function continues to improve with BUN 19 and creatinine 0.83 today. Troponin on presentation was 0.03 rising to 2.46, 2.11 and 0.65 at last draw. Blood culture was positive for Staphylococcus epidermidis and sensitivity pending. Pulmonology is following and recommends weaning the oxygen as tolerated to 3 L with continued antibiotics, nebulizers, Solu-Cortef and Toradol for pain to prevent sedation from narcotic pain medications. Swallow evaluation is pending. Cardiology is following with no acute interventions planned at this time. Notes prognosis is guarded. . Family/friend interactions Held extensive meeting with daughter, son and friend regarding burdens and benefits of artificial tube feeding and aggressive interventions. The daughter states that her mother had previously advised her she did want aggressive measures for resuscitation. The mother is currently very painful from CPR and shock and the daughter has agreed to revisit this with the mother when she is more awake to see if she is willing to undergo aggressive resuscitation again. The patient remains somewhat lethargic but is awake and listening to the conversation. They questioned the possibility of a PEG tube due to their mother 's chronic aspiration in order to allow her to obtain nutrition. Once they became aware of the aspiration mechanism and the continued risk of aspiration with or without the tube feeding they decided against that intervention. Per the daughter she states that if the mother would have that level of risk of aspiration with either oral feedings or the tube feeding that her mother would prefer the pleasure of eating and take the risk of aspiration. Extensive education regarding swallowing mechanisms and the GI tract were given to the family and based on that they determined at this time they want no PEG tube, NG tube or other artificial feeding apparatus. (Linh Echavarria) Advance Directives Living Will: Never completed Health Care Surrogate: Never completed Durable Power of Value Stream Leader: Never completed (Linh Echavarria) Advance Directive Specifics Health Care Surrogate(s): Patient is currently incapacitated to make her own decisions, uncertain if she regained capacity. According to [place] statutes, health care proxy decision- making would fall to the majority of adult children. Patient has one son and one daughter. . (Linh Echavarria) Objective Vital Signs Date Time Temp Pulse Resp B/P Pulse Ox O2 Delivery O2 Flow Rate FiO2 12/09/16 14:00 67 12/09/16 12:00 92 Nasal Cannula 4.00 12/09/16 12:00 98.9 72 29 97/67 90 105/55 12/09/16 11:38 96 Nasal Cannula 4 12/09/16 11:38 96 Nasal Cannula 4.00 12/09/16 08:49 35 12/09/16 08:49 99 35 12/09/16 08:00 45 12/09/16 08:00 97.3 63 18 90/53 100 93/45 12/09/16 07:00 61 12/09/16 06:00 72 100/66 135/77 12/09/16 04:04 99 45 12/09/16 04:00 45 12/09/16 04:00 98.8 60 15 110/65 97 104/57 12/09/16 00:00 45 12/09/16 00:00 98.6 75 22 131/63 100 109/78 12/08/16 23:43 98 45 12/08/16 23:00 67 12/08/16 20:48 97 45 12/08/16 20:00 45 12/08/16 20:00 98.2 69 15 96/55 96 103/57 12/08/16 18:00 79 93/54 88/61 Intake & Output 12/09/16 12/09/16 06:59 18:59 Intake Total 2096 ml Output Total 600 ml Balance 1496 ml IV Total 2096 ml Output Urine Total 600 ml # Bowel Movements 0 Physical Exam CONSTITUTIONAL/GENERAL: This is an elderly, critically ill appearing patient extubated on 3 L nasal cannula. TUBES/LINES/DRAINS: ETT, OG, PIV, right femoral central line, Left femoral A- line, Victoria. SKIN: No jaundice, rashes, or lesions. Ecchymoses on upper/ lower extremities and chest. Left forearm with erythema, swelling and tenderness. Skin tear left UE, dressing intact. Dressing to left norton. Bilateral LE cool to touch. ENT: Hard of hearing, wearing hearing aids in left ear CARDIOVASCULAR: Systolic murmur noted, regular. RESPIRATORY/CHEST: Symmetric, unlabored respirations, lungs clear diminished with rare rhonchi. GASTROINTESTINAL: Abdomen soft, non-tender, nondistended. No guarding. Bowel sounds hypoactive. GENITOURINARY: Without palpable bladder distension. Victoria catheter in place. MUSCULOSKELETAL: Bilateral upper extremities with edema. No mottling or clubbing. NEUROLOGICAL: Arousable, lethargic, makes needs known, oriented to self and surroundings. PSYCHIATRIC: Anxious, hypersensitive to touch . (Linh Echavarria) Diagnostic Tests Laboratory Laboratory Tests Test 12/06/16 12/06/16 12/06/16 12/07/16 23:28 23:44 23:54 00:55 Prothrombin Time 10.4 SEC (9.8-11.6) Prothromb Time International 0.9 RATIO Ratio Activated Partial 22.4 SEC Thromboplast Time (24.3-30.1) White Blood Count 20.3 TH/MM3 (4.0-11.0) Red Blood Count 4.99 MIL/MM3 (4.00-5.30) Hemoglobin 13.1 GM/DL (11.6-15.3) Bedside Hemoglobin 15.0 G/DL (12.0-17.0) Hematocrit 43.4 % (35.0-46.0) Bedside Hematocrit 44.0 % (38.0-51.0) Mean Corpuscular Volume 87.0 FL (80.0-100.0) Mean Corpuscular Hemoglobin 26.3 PG (27.0-34.0) Mean Corpuscular Hemoglobin 30.3 % Concent (32.0-36.0) Red Cell Distribution Width 18.2 % (11.6-17.2) Platelet Count 237 TH/MM3 (150-450) Mean Platelet Volume 9.5 FL (7.0-11.0) Neutrophils (%) (Auto) 60.4 % (16.0-70.0) Lymphocytes (%) (Auto) 31.4 % (9.0-44.0) Monocytes (%) (Auto) 6.5 % (0.0-8.0) Eosinophils (%) (Auto) 1.2 % (0.0-4.0) Basophils (%) (Auto) 0.5 % (0.0-2.0) Neutrophils # (Auto) 12.3 TH/MM3 (1.8-7.7) Lymphocytes # (Auto) 6.4 TH/MM3 (1.0-4.8) Monocytes # (Auto) 1.3 TH/MM3 (0-0.9) Eosinophils # (Auto) 0.2 TH/MM3 (0-0.4) Basophils # (Auto) 0.1 TH/MM3 (0-0.2) CBC Comment AUTO DIFF Differential Total Cells 100 Counted Neutrophils % (Manual) 65 % (16-70) Band Neutrophils % 2 % (0-6) Lymphocytes % 17 % (9-44) Monocytes % 3 % (0-8) Basophils % 1 % (0-2) Neutrophils # (Manual) 13.6 TH/MM3 (1.8-7.7) Differential Comment FINAL DIFF MANUAL Atypical Lymphocytes 12 % (0-0) Platelet Estimate NORMAL (NORMAL) Platelet Morphology Comment NORMAL (NORMAL) Red Cell Morphology Comment NORMAL (NORMAL) D-Dimer Quantitative (PE/DVT) 13.34 MG/L FEU (0.00-0.50) Bedside Sodium 139 MMOL/L (138-146) Bedside Potassium 4.3 MMOL/L (3.5-4.9) Bedside Chloride 104 MMOL/L (98-109) Bedside Blood Urea Nitrogen 24 MG/DL (8-26) Bedside Creatinine 1.1 MG/DL (0.6-1.0) Bedside Glucose 291 MG/DL (60-95) Calcium Level 8.7 MG/DL (8.5-10.1) Phosphorus Level 3.7 MG/DL (2.5-4.9) Magnesium Level 4.2 MG/DL (1.5-2.5) Total Creatine Kinase 62 U/L (26-192) Troponin I 0.03 NG/ML (0.02-0.05) B-Type Natriuretic Peptide 118 PG/ML (0-100) Blood Gas Puncture Site RFEM LFEM Blood Gas Patient Temperature 98.6 98.6 Venous Blood pH 7.28 (7.360-7.400) Venous Blood Partial Pressure 43 mmHg (44-48) CO2 Venous Blood Partial Pressure 29 mmHg (35-40) O2 Venous Blood HCO3 20 mmol/L (22-26) Venous Blood Oxygen Saturation 46 % (70-76) Venous Blood Oxygen Content 8.0 Vol % (9.0-17.0) Venous Blood Base Excess -6.1 mmol/L (-2-2) Oxygen Delivery Device VENTILATOR VENTILATOR Blood Gas Ventilator Setting AC/16/500/PEEP5 AC/16/500/PEEP5 Blood Gas Inspired Oxygen 100 % 100 % Blood Gas HCO3 25 mmol/L (22-26) Blood Gas Base Excess 0.7 mmol/L (-2-2) Blood Gas Oxygen Saturation 97 % (90-100) Arterial Blood pH 7.40 (7.380-7.420) Arterial Blood Partial 41 mmHg (38-42) Pressure CO2 Arterial Blood Partial 119 mmHG Pressure O2 (61-120) Arterial Blood Oxygen Content 16.9 Vol % (12.0-20.0) Arterial Blood 1.4 % (0-4) Carboxyhemoglobin Arterial Blood Methemoglobin 0.3 % (0-2) Blood Gas Hemoglobin 12.3 G/DL (12.0-16.0) Urine Color YELLOW (YELLW/STRAW) Urine Turbidity HAZY (CLEAR) Urine pH 5.5 (5.0-8.5) Urine Specific [place] 1.018 (1.002-1.035) Urine Protein 100 mg/dL (NEG-TRACE) Urine Glucose (UA) NEG mg/dL (NEG) Urine Ketones NEG mg/dL (NEG) Urine Occult Blood NEG (NEG) Urine Nitrite NEG (NEG) Urine Bilirubin NEG (NEG) Urine Urobilinogen 2.0 MG/DL (LESS THAN 2.0) Urine Leukocyte Esterase TRACE (NEG) Urine RBC 2 /hpf (0-3) Urine WBC 6 /hpf (0-5) Urine Squamous Epithelial 1 /hpf (0-5) Cells Urine Calcium Oxalate Crystals RARE /hpf (NONE) Urine Bacteria RARE /hpf (NONE) Urine Hyaline Casts INNUM /lpf (RARE) Urine Mucus FEW /lpf (OCC) Microscopic Urinalysis Comment CATH-CULTURE IND Test 12/07/16 12/07/16 12/07/16 12/07/16 00:56 01:59 02:58 03:30 Lactic Acid Level 9.3 mmol/L 4.0 mmol/L (0.4-2.0) (0.4-2.0) Blood Gas Puncture Site LT FEMORAL Blood Gas Patient Temperature 98.6 Blood Gas HCO3 26 mmol/L (22-26) Blood Gas Base Excess 2.1 mmol/L (-2-2) Blood Gas Oxygen Saturation 93 % (90-100) Arterial Blood pH 7.43 (7.380-7.420) Arterial Blood Partial 40 mmHg (38-42) Pressure CO2 Arterial Blood Partial 72 mmHG Pressure O2 (61-120) Arterial Blood Oxygen Content 16.2 Vol % (12.0-20.0) Arterial Blood 1.5 % (0-4) Carboxyhemoglobin Arterial Blood Methemoglobin 0.5 % (0-2) Blood Gas Hemoglobin 12.4 G/DL (12.0-16.0) Oxygen Delivery Device PRVC/AC Blood Gas Inspired Oxygen 100 % Nasal Screen MRSA (PCR) MRSA DETECTED (NOT DETECT) Test 12/07/16 12/07/16 12/07/16 12/08/16 06:25 09:00 22:42 06:15 Troponin I 2.46 NG/ML 2.11 NG/ML 0.65 NG/ML (0.02-0.05) (0.02-0.05) (0.02-0.05) Magnesium Level 2.5 MG/DL 2.1 MG/DL (1.5-2.5) (1.5-2.5) White Blood Count 18.8 TH/MM3 (4.0-11.0) Red Blood Count 4.20 MIL/MM3 (4.00-5.30) Hemoglobin 11.2 GM/DL (11.6-15.3) Hematocrit 35.6 % (35.0-46.0) Mean Corpuscular Volume 84.8 FL (80.0-100.0) Mean Corpuscular Hemoglobin 26.8 PG (27.0-34.0) Mean Corpuscular Hemoglobin 31.6 % Concent (32.0-36.0) Red Cell Distribution Width 18.0 % (11.6-17.2) Platelet Count 157 TH/MM3 (150-450) Mean Platelet Volume 9.7 FL (7.0-11.0) Neutrophils (%) (Auto) 81.7 % (16.0-70.0) Lymphocytes (%) (Auto) 8.9 % (9.0-44.0) Monocytes (%) (Auto) 7.3 % (0.0-8.0) Eosinophils (%) (Auto) 1.7 % (0.0-4.0) Basophils (%) (Auto) 0.4 % (0.0-2.0) Neutrophils # (Auto) 15.4 TH/MM3 (1.8-7.7) Lymphocytes # (Auto) 1.7 TH/MM3 (1.0-4.8) Monocytes # (Auto) 1.4 TH/MM3 (0-0.9) Eosinophils # (Auto) 0.3 TH/MM3 (0-0.4) Basophils # (Auto) 0.1 TH/MM3 (0-0.2) CBC Comment DIFF FINAL Differential Comment Sodium Level 145 MEQ/L (136-145) Potassium Level 3.6 MEQ/L (3.5-5.1) Chloride Level 110 MEQ/L (98-107) Carbon Dioxide Level 27.2 MEQ/L (21.0-32.0) Anion Gap 8 MEQ/L (5-15) Blood Urea Nitrogen 21 MG/DL (7-18) Creatinine 1.05 MG/DL (0.50-1.00) Estimat Glomerular Filtration 49 ML/MIN (>89) Rate Random Glucose 166 MG/DL (74-106) Calcium Level 7.7 MG/DL (8.5-10.1) Phosphorus Level 2.6 MG/DL (2.5-4.9) Total Bilirubin 1.1 MG/DL (0.2-1.0) Aspartate Amino Transf 26 U/L (15-37) (AST/SGOT) Alanine Aminotransferase 30 U/L (10-53) (ALT/SGPT) Alkaline Phosphatase 87 U/L (45-117) Total Protein 5.5 GM/DL (6.4-8.2) Albumin 2.1 GM/DL (3.4-5.0) Random Vancomycin Level 4.5 COMMENT Test 12/08/16 12/09/16 13:18 06:15 Blood Gas Puncture Site ART LINE Blood Gas Patient Temperature 98.6 Blood Gas HCO3 22 mmol/L (22-26) Blood Gas Base Excess -2.5 mmol/L (-2-2) Blood Gas Oxygen Saturation 91 % (90-100) Arterial Blood pH 7.38 (7.380-7.420) Arterial Blood Partial 38 mmHg (38-42) Pressure CO2 Arterial Blood Partial 72 mmHg Pressure O2 (61-120) Arterial Blood Oxygen Content 14.3 Vol % (12.0-20.0) Arterial Blood 2.0 % (0-4) Carboxyhemoglobin Arterial Blood Methemoglobin 1.2 % (0-2) Blood Gas Hemoglobin 11.1 G/DL (12.0-16.0) Oxygen Delivery Device VENTILATOR Blood Gas Ventilator Setting CPAP 15PS Blood Gas Inspired Oxygen 45 % White Blood Count 15.6 TH/MM3 (4.0-11.0) Red Blood Count 4.07 MIL/MM3 (4.00-5.30) Hemoglobin 10.5 GM/DL (11.6-15.3) Hematocrit 34.4 % (35.0-46.0) Mean Corpuscular Volume 84.5 FL (80.0-100.0) Mean Corpuscular Hemoglobin 25.9 PG (27.0-34.0) Mean Corpuscular Hemoglobin 30.7 % Concent (32.0-36.0) Red Cell Distribution Width 17.0 % (11.6-17.2) Platelet Count 131 TH/MM3 (150-450) Mean Platelet Volume 9.7 FL (7.0-11.0) Neutrophils (%) (Auto) 93.4 % (16.0-70.0) Lymphocytes (%) (Auto) 3.6 % (9.0-44.0) Monocytes (%) (Auto) 2.9 % (0.0-8.0) Eosinophils (%) (Auto) 0.0 % (0.0-4.0) Basophils (%) (Auto) 0.1 % (0.0-2.0) Neutrophils # (Auto) 14.6 TH/MM3 (1.8-7.7) Lymphocytes # (Auto) 0.6 TH/MM3 (1.0-4.8) Monocytes # (Auto) 0.5 TH/MM3 (0-0.9) Eosinophils # (Auto) 0.0 TH/MM3 (0-0.4) Basophils # (Auto) 0.0 TH/MM3 (0-0.2) CBC Comment DIFF FINAL Differential Comment Sodium Level 144 MEQ/L (136-145) Potassium Level 3.6 MEQ/L (3.5-5.1) Chloride Level 110 MEQ/L (98-107) Carbon Dioxide Level 25.1 MEQ/L (21.0-32.0) Anion Gap 9 MEQ/L (5-15) Blood Urea Nitrogen 19 MG/DL (7-18) Creatinine 0.83 MG/DL (0.50-1.00) Estimat Glomerular Filtration 65 ML/MIN (>89) Rate Random Glucose 183 MG/DL (74-106) Calcium Level 8.2 MG/DL (8.5-10.1) Total Bilirubin 0.8 MG/DL (0.2-1.0) Aspartate Amino Transf 20 U/L (15-37) (AST/SGOT) Alanine Aminotransferase 23 U/L (10-53) (ALT/SGPT) Alkaline Phosphatase 80 U/L (45-117) Total Protein 5.5 GM/DL (6.4-8.2) Albumin 2.0 GM/DL (3.4-5.0) (Linh Echavarria) Result Diagram: 12/09/1615 12/09/1615 Microbiology Microbiology Date/Time Procedure Status Source Growth 12/07/16 00:30 Aerobic Blood Culture - Preliminary Resulted Blood Peripheral Staphylococcus Epidermidis 12/07/16 00:30 Anaerobic Blood Culture - Preliminary Resulted Blood Peripheral NO GROWTH IN 2 DAYS 12/07/16 00:40 Aerobic Blood Culture - Preliminary Resulted Blood Peripheral NO GROWTH IN 2 DAYS 12/07/16 00:40 Anaerobic Blood Culture - Preliminary Resulted Blood Peripheral NO GROWTH IN 2 DAYS 12/07/16 00:55 Urine Culture - Final Complete Urine Catheterized Urine NO GROWTH IN 48 HOURS. Procedures * 12/07/16 - left femoral arterial line placement * 12/06/16 - right triple lumen central line placement * 12/06/16 - Cardiac arrest x 3, Intubation . (Linh Echavarria) Assessment and Plan Disease Oriented Problem List: (1) Septic shock (2) Pneumonia (3) PEA (Pulseless electrical activity) (4) Bradycardia (5) COPD (chronic obstructive pulmonary disease) (6) Cardiopulmonary arrest with successful resuscitation (7) Lactic acidosis (8) Leukocytosis Symptom Scale: (1) Pain 0-10 Scale: Unable to quantify (2) Dyspnea 0-10 Scale: Unable to quantify (3) Weakness 0-10 Scale: Unable to quantify (4) Dysphagia Pertinent Non-Medical Issues Psychosocial: . Supported by son and daughter. Spiritual: Mosque josi, welcomes manager stone support. Legal: Patient is currently incapacitated to make her own decisions, uncertain if she regained capacity. According to [place] statutes, health care proxy decision-making would fall to the majority of adult children. Patient has one son and one daughter. Ethical issues impacting care: No known concerns at this time. . Important Contacts * Qian Vargas, daughter/ co-HCP: [phone] (cell) or [phone] (work ) * Jerad Santana, son/co-HCP: [phone] . Prognosis Ms. Santana is an 86 year old female with dementia, oxygen dependent COPD admitted post cardiac arrest with underlying cardiomyopathy and COPD/ resp failure and pneumonia. Given her advanced age, comorbidities, repeat hospitalizations for recurrent UTI, aspiration pneumonia and sepsis her overall prognosis is poor. . Code Status: Full Code Plan * Patient is currently incapacitated to make her own decisions, uncertain if she will read cane capacity. According to [place] statutes, health care proxy decision-making would fall to the majority of adult children. Patient has one son and one daughter, both (Qian and Jerad) want to serve as health care proxy decision makers. * FULL CODE * 12/09/16 Palliative care meeting: Family (son and daughter) both desire continued aggressive care including FULL CODE and reintubation if medically extubated. Patient now extubated and stable on nasal cannula. Family is not ready to consider transition to comfort. I am not certain if they will be able to make end of life decisions, unless pt is unresponsive. Palliative care will continue to follow, to assist in clarifying goals. They did determined today that no artificial feeding would be used, as they feel patient bears the same risk of aspiration with either artificial or oral feedings and the patient would prefer the pleasure of eating if the risk remains the same. * Servomechanism Designer support requested. * Discussed with Dr. Berger, Dr. Yancey and nurse, Stormy. SYMPTOMS: * Pain: potential sources include recent cardiopulmonary resuscitation, intubation, tubes, bedbound status and infection. She complains of significant pain in her chest and left shoulder likely from CPR. Once patient is more awake the daughter will again reexplore the patient's wishes regarding aggressive resuscitation. * Dyspnea: Extubated, stable on 3 L nasal cannula, underlying COPD, significant risk of recurrent aspiration. * Weakness: secondary to recent hospitalizations, cardiopulmonary resuscitation , bedbound status, infection. No new medication recommendations at this time. In summary this is an 86 year old female with recurrent aspiration who had been on a pured diet with thickened liquids at home. It is likely that she will continue to aspirate. Family's goals remain very aggressive but after extensive discussion and have decided against artificial feeding as the risk of aspiration would remain regardless. The daughter who is the primary caregiver is willing to review continued goals of aggressive resuscitation with her mother once she is more awake. The family will require extensive support and education through this process in determining the mother's goals of care. This will remain difficult due to the level of debility and mild dementia in the mother. Palliative care will continue to follow throughout hospital course to assist with symptom management and clarification of goals as needed. . (Linh Echavarria) Attestation To help prompt me to consider important information that might be impacting today's encounter and assessment, information from prior notes written by myself or my colleagues may have been "brought forward" into today's note. My signature on this note, however, is an attestation that I personally performed the exam, history, and/or decision-making noted today, and, unless otherwise indicated, the interactions with patient, family, and staff as well as the review of records all occurred today. I also attest that the listed assessment and stated plan reflect my best clinical judgment today based on the combination of historical information, prior notes, and today's exam/ interactions. When time spent is documented, it refers only to time spent today by the signer, or if indicated, combined time spent today by collaborating physician/nurse practitioner. (Linh Echavarria) Collaborating MD Comments . Chart reviewed. Case discussed with palliative care HAND STITCHER. Above HAND STITCHER note reviewed and I concur. . (Sea Dewey MD) Linh Echavarria December 09, 2016 16:29 Sea Dewey MD December 15, 2016 16:33
[2016-12-09] MEDS ORDERED: HEPARIN-D5W INJ 250 ML IV SCH (17:30)
--- NOTE | 2016-12-09 17:50 | RADRPT ---
EXAM DATE/TIME: 12/09/2016 17:03 [facility] COMPARISON: No previous studies available for comparison. INDICATIONS : Left arm swelling. MEDICAL HISTORY : Methicillin-resistant Staphylococcus aureus. Left arm swelling. SURGICAL HISTORY : None. ENCOUNTER: Initial ACUITY: 1 day PAIN SCORE: 7/10 LOCATION: Left arm. FINDINGS: There is extensive occlusive thrombus in the left upper extremity involving the axillary, brachial sk ull, basilic and cephalic veins. The left subclavian vein and internal jugular vein are patent. The r adial and ulnar veins are patent. CONCLUSION: Extensive venous thrombosis as above. Vishal Livingston MD on December 09, 2016 at 17:48 Board Certified Radiologist. This report was verified electronically.
--- NOTE | 2016-12-09 17:52 | PD.CARD.PN ---
Subjective Subjective Remarks Extubated, alert, no CP or SOB Objective Medications Current Medications Medications (Trade) Dose Ordered Sig/Kaleigh Route Start Time Stop Time Status Last Admin Chlorhexidine Gluconate 15 ml 15 ml BID@08,20 MT 12/07/16 08:00 12/09/16 07:33 (NS 1000 ml Inj) 1,000 ml @ 84 mls/hr [id number] IV 12/07/16 01:18 12/09/16 12:06 (NS Flush) 2 ml UNSCH PRN .XX 12/07/16 01:30 12/07/16 20:45 (NS Flush) 2 ml BID .XX 12/07/16 09:00 12/09/16 07:32 (Tylenol) 650 mg Q6H PRN PO 12/07/16 01:30 12/08/16 16:12 (fentaNYL INJ) 50 mcg Q1H PRN IV PUSH 12/07/16 01:30 12/09/16 03:15 (Protonix Inj) 40 mg DAILY IV 12/07/16 09:00 12/09/16 07:32 Miscellaneous Information 1 Q361D XX 12/07/16 01:30 12/07/16 03:00 (Chlorhexidine 2% Cloth) 3 pack Taper DAILY@04 TOP 12/07/16 04:00 12/03/17 03:59 12/09/16 03:15 Chlorhexidine Gluconate 3 pack 3 pack UNSCH PRN TOP 12/07/16 01:30 Fentanyl Citrate 250 ml @ 0 mls/hr TITRATE IV 12/07/16 01:30 12/08/16 23:46 Pharmacy Profile Note 0 ml @ 0 mls/hr UNSCH OTHER 12/07/16 02:15 (Levophed-Dextrose Drip) 250 ml @ 0 mls/hr TITRATE IV 12/07/16 05:45 12/09/16 16:48 Terbutaline Sulfate 1 mg 1 mg UNSCH PRN SQ 12/07/16 05:45 (Zithromax Inj/ NS 250 ml Inj) 250 ml @ 250 mls/hr Q24H IV 12/07/16 09:00 12/09/16 07:32 (D50w (Vial) Inj) 50 ml UNSCH PRN IV 12/07/16 09:45 (Glucagon Inj) 1 mg UNSCH PRN OTHER 12/07/16 09:45 Insulin Aspart 1 1 Q6H SQ 12/07/16 10:00 12/09/16 10:00 (Vancomycin Inj/ NS 500 ml Inj) 515 ml @ 250 mls/hr Q24H IV 12/08/16 12:00 12/09/16 12:06 Miscellaneous Information SPECIFIC LAB TO BE DRAWN:VANCOMYCIN TROUGH DATE TO... ONCE ONCE .XX 12/11/16 11:45 12/11/16 11:46 Hydrocortisone Sodium Succinate 100 mg 100 mg Q8H IV PUSH 12/08/16 12:00 12/09/16 12:06 (Zosyn 3.375 Gm Premix) 50 ml @ 100 mls/hr Q6H IV 12/08/16 20:00 12/09/16 13:31 (Senna Liq) 8.8 mg DAILY PO 12/10/16 09:00 (Colace Liq) 100 mg Q12HR PO 12/09/16 21:00 Ketorolac Tromethamine 15 mg 15 mg Q6H PRN IV PUSH 12/09/16 13:30 12/14/16 13:29 12/09/16 13:30 (Heparin-D5W Inj) 250 ml @ 0 mls/hr TITRATE IV 12/09/16 17:30 Vital Signs / I&O Vital Signs Date Time Temp Pulse Resp B/P Pulse Ox O2 Delivery O2 Flow Rate FiO2 12/09/16 16:00 98.8 72 21 111/66 94 105/55 12/09/16 15:00 73 12/09/16 14:00 67 12/09/16 12:00 92 Nasal Cannula 4.00 12/09/16 12:00 98.9 72 29 97/67 90 105/55 12/09/16 11:38 96 Nasal Cannula 4 12/09/16 11:38 96 Nasal Cannula 4.00 12/09/16 08:49 35 12/09/16 08:49 99 35 12/09/16 08:00 45 12/09/16 08:00 97.3 63 18 90/53 100 93/45 12/09/16 07:00 61 12/09/16 06:00 72 100/66 135/77 12/09/16 04:04 99 45 12/09/16 04:00 45 12/09/16 04:00 98.8 60 15 110/65 97 104/57 12/09/16 00:00 45 12/09/16 00:00 98.6 75 22 131/63 100 109/78 12/08/16 23:43 98 45 12/08/16 23:00 67 12/08/16 20:48 97 45 12/08/16 20:00 45 12/08/16 20:00 98.2 69 15 96/55 96 103/57 12/08/16 18:00 79 93/54 88/61 I/O 12/08/16 12/08/16 12/08/16 12/09/16 12/09/16 12/09/16 07:00 15:00 23:00 07:00 15:00 23:00 Intake Total 376 ml 1300 ml 1414 ml 682 ml Output Total 350 ml 200 ml 400 ml 200 ml Balance 26 ml 1100 ml 1014 ml 482 ml IV Total 376 ml 1300 ml 1414 ml 682 ml Output Urine Total 350 ml 200 ml 400 ml 200 ml Stool Total 0 ml # Bowel Movements 0 0 0 Physical Exam GENERAL: In NAD SKIN: Warm and dry. HEAD: Normocephalic. EYES: No scleral icterus. No injection or drainage. NECK: Supple, trachea midline. No JVD or lymphadenopathy. CARDIOVASCULAR: Regular rate and rhythm without murmurs, gallops, or rubs. RESPIRATORY: Breath sounds equal bilaterally. No accessory muscle use. GASTROINTESTINAL: Abdomen soft, non-tender, nondistended. MUSCULOSKELETAL: No cyanosis, or edema. Laboratory Laboratory Tests Test 12/09/16 06:15 White Blood Count 15.6 TH/MM3 Red Blood Count 4.07 MIL/MM3 Hemoglobin 10.5 GM/DL Hematocrit 34.4 % Mean Corpuscular Volume 84.5 FL Mean Corpuscular Hemoglobin 25.9 PG Mean Corpuscular Hemoglobin 30.7 % Concent Red Cell Distribution Width 17.0 % Platelet Count 131 TH/MM3 Mean Platelet Volume 9.7 FL Neutrophils (%) (Auto) 93.4 % Lymphocytes (%) (Auto) 3.6 % Monocytes (%) (Auto) 2.9 % Eosinophils (%) (Auto) 0.0 % Basophils (%) (Auto) 0.1 % Neutrophils # (Auto) 14.6 TH/MM3 Lymphocytes # (Auto) 0.6 TH/MM3 Monocytes # (Auto) 0.5 TH/MM3 Eosinophils # (Auto) 0.0 TH/MM3 Basophils # (Auto) 0.0 TH/MM3 CBC Comment DIFF FINAL Differential Comment Sodium Level 144 MEQ/L Potassium Level 3.6 MEQ/L Chloride Level 110 MEQ/L Carbon Dioxide Level 25.1 MEQ/L Anion Gap 9 MEQ/L Blood Urea Nitrogen 19 MG/DL Creatinine 0.83 MG/DL Estimat Glomerular Filtration 65 ML/MIN Rate Random Glucose 183 MG/DL Calcium Level 8.2 MG/DL Total Bilirubin 0.8 MG/DL Aspartate Amino Transf 20 U/L (AST/SGOT) Alanine Aminotransferase 23 U/L (ALT/SGPT) Alkaline Phosphatase 80 U/L Total Protein 5.5 GM/DL Albumin 2.0 GM/DL Imaging Last Impressions Chest X-Ray 12/09/16 0600 Signed Impressions: Service Date/Time: Friday, December 09, 2016 03:59 - CONCLUSION: No appreciable change. Maryellen Hobson MD Shoulder X-Ray 12/09/16 0000 Signed Impressions: Service Date/Time: Friday, December 09, 2016 15:35 - CONCLUSION: Postoperative and remote posttraumatic changes of the left proximal humerus. Vishal Livingston MD Head CT 12/07/16 0000 Signed Impressions: Service Date/Time: Wednesday, December 07, 2016 02:21 - CONCLUSION: Chronic and small vessel ischemic changes without any evidence for acute hemorrhage or mass effect. Maryellen Hobson MD CT Angiography 12/07/16 0000 Signed Impressions: Service Date/Time: Wednesday, December 07, 2016 02:27 - CONCLUSION: Bibasilar consolidation worse on the right. Maryellen Hobson MD Assessment and Plan Problem List: (1) Cardiopulmonary arrest with successful resuscitation (2) PEA (Pulseless electrical activity) (3) Septic shock (4) COPD (chronic obstructive pulmonary disease) (5) Pneumonia Assessment and Plan Successfully extubated. Still on pressors, but weaned down. Rhythm stable. Continue tx for septic shock. Prognosis still guarded but some progress achieved. D/w pt's family, palliative care involved. Imer Yancey MD December 09, 2016 17:52
[2016-12-09 19:28] LABS: HEMATOCRIT 31.9 % (35.0-46.0); MEAN CELL VOLUME 83.9 FL (80.0-100.0); MEAN CORPUSCULAR HEMOGLOBIN 26.7 PG (27.0-34.0); MEAN CORPUSCULAR HGB CONC 31.8 % (32.0-36.0); PLATELET COUNT 162 TH/MM3 (150-450); RED CELL DISTRIBUTION WIDTH 16.9 % (11.6-17.2); REVIEW FLAG FINAL; WHITE BLOOD COUNT 16.3 TH/MM3 (4.0-11.0)
[2016-12-09] MEDS ORDERED: ACETAMINOPHEN 1000 MG/100 ML VIAL IV ONE (19:30)
[2016-12-09 19:41] LABS: APTT (PATIENT) 26.8 SEC (24.3-30.1)
[2016-12-09] MEDS: DOCUSATE SODIUM 100 MG/10 ML UDC PO SCH (20:28)
[2016-12-09] MEDS ORDERED: DOCUSATE SODIUM 100 MG/10 ML UDC PO SCH (21:00)
[2016-12-10] VITALS (21 sets, daily range): BP systolic 86–127; BP diastolic 47–81; PULSE 62–82; RESP 17–37; TEMP 94.4–98.7; O2SAT 83–99
[2016-12-10] MEDS: SODIUM CHLOR 0.9% 1000 ML INJ 1,000 ML IV SCH ×2 (00:46→21:57)
[2016-12-10 01:11] LABS: APTT (PATIENT) 58.7 SEC (24.3-30.1)
[2016-12-10] MEDS: PIPERACIL-TAZO 3.375 GM PREMIX 50 ML IV SCH ×4 (02:11→21:55)
[2016-12-10] MEDS: RESP: ALBUTEROL 2.5 MG/IPRATROPIUM 0.5 MG NEB (SCH) NEB ×3 (03:11→15:44)
[2016-12-10] MEDS: HYDROCORTISONE SOD SUCCINATE 100 MG VIAL IV PUSH SCH ×2 (03:17→12:08)
[2016-12-10] MEDS: KETOROLAC TROMETHAMINE 30 MG/ML (IVP) VIAL IV PUSH PRN (03:17)
[2016-12-10] MEDS: CHLORHEXIDINE GLUCONATE 2 % 1 PACK (2 CLOTHS) TOP SCH ×2 (03:29→22:13)
[2016-12-10] MEDS: INSULIN ASPART SUPPLEMENTAL SCALE SQ SCH ×3 (03:34→22:00)
--- NOTE | 2016-12-10 05:50 | RADRPT ---
EXAM DATE/TIME: 12/10/2016 04:28 [facility] COMPARISON: No previous studies available for comparison. INDICATIONS : Shortness of breath, possible pulmonary disease. MEDICAL HISTORY : None. SURGICAL HISTORY : None. ENCOUNTER: Initial ACUITY: 4 - 6 days PAIN SCORE: Non-responsive. LOCATION: Bilateral chest FINDINGS: A single view of the chest demonstrates the endotracheal tube and nasogastric have been removed. Pers istent bibasilar infiltrates. Tortuous aorta. Upper lungs are clear.. The cardiomediastinal contours are unremarkable. Osseous structures are intact. CONCLUSION: Persistent basilar infiltrates with moderate size pleural effusions. Aorta is quite tortuous.. Trevor Nieto MD on December 10, 2016 at 5:48 Board Certified Radiologist. This report was verified electronically.
[2016-12-10 05:56] LABS: BASOPHIL % 0.3 % (0.0-2.0); HEMATOCRIT 32.5 % (35.0-46.0); HEMO FLAGS DIFF FINAL; LYMPH % 3.3 % (9.0-44.0); LYMPHOCYTE # 0.5 TH/MM3 (1.0-4.8); MEAN CELL VOLUME 83.3 FL (80.0-100.0); MEAN CORPUSCULAR HGB CONC 31.1 % (32.0-36.0); MONO % 3.7 % (0.0-8.0); NEUT % 92.7 % (16.0-70.0); PLATELET COUNT 162 TH/MM3 (150-450); RED CELL DISTRIBUTION WIDTH 17.1 % (11.6-17.2); WHITE BLOOD COUNT 15.1 TH/MM3 (4.0-11.0)
[2016-12-10 06:32] LABS: ALKALINE PHOSPHATASE 72 U/L (45-117); ALT (GPT) 20 U/L (10-53); ANION GAP 10 MEQ/L (5-15); AST (GOT) 16 U/L (15-37); BICARBONATE 23.5 MEQ/L (21.0-32.0); BLOOD UREA NITROGEN 23 MG/DL (7-18); CHLORIDE 111 MEQ/L (98-107); GLOMERULAR FILTRATION RATE 86 ML/MIN (>89); MAGNESIUM 2.3 MG/DL (1.5-2.5); POTASSIUM 3.5 MEQ/L (3.5-5.1); SODIUM (NA) 144 MEQ/L (136-145); TOTAL BILIRUBIN ADULT 0.5 MG/DL (0.2-1.0)
[2016-12-10] MEDS: CHLORHEXIDINE 0.12% (ORAL KIT) 15 ML CUP MT SCH ×2 (08:00→20:00)
[2016-12-10] MEDS: DOCUSATE SODIUM 100 MG/10 ML UDC PO SCH ×2 (09:00→21:00)
[2016-12-10] MEDS: SODIUM CHLORIDE 0.9% FLUSH 10 ML FLUSH SCH ×2 (09:00→21:56)
[2016-12-10] MEDS: SENNOSIDES SYRUP 8.8 MG/5 ML CUP PO SCH (09:00)
[2016-12-10] MEDS: PANTOPRAZOLE SODIUM 40 MG VIAL IV SCH (09:44)
[2016-12-10] MEDS: AZITHROMYCIN INJ 500 MG in SODIUM CHLOR 0.9% 250 ML INJ 250 ML IV SCH (09:44)
[2016-12-10] MEDS ORDERED: BUMETANIDE INJ 1 MG/4 ML VIAL IV PUSH ONE (09:45)
--- NOTE | 2016-12-10 09:58 | HHI.CCPN ---
Subjective Remarks/Hospital Course 86 yo WF with PMH of COPD on 2 L home O2, CHF who is brought in by [facility] after initial call for lethargy. [facility] reported that she was in Torsades. They started to administer magnesium sulfate and administered partial dose when the IV blew. She was the shocked for Vtach. She was intubated after receiving Ativan 4 mg IV and etomidate 20 mg IV. She was then noted to be in asystole. She was given epinephrine and had ROSC. EKG upon arrival to the emergency department demonstrated an irregular rhythm that appears to be slow A. fib. Due to concern LBBB a STEMI alert was called. Patient subsequently had a recurrent cardiac arrest where she had bradycardia followed by asystole at 23: 25 for 10 minutes (received Epi x2, bicarb x1 amp, calcium carbonate x1) and then another code at 23:48 for 4 minutes (received epi x3, sodium bicarb x2 amps). Dr. Ball discussed with Dr. Hawley and he cancelled STEMI alert. Patient remains hypotensive post-arrest and is currently on Epinephrine drip and Dr. Ball has placed a R femoral central line. Her daughter states that yesterday patient was complaining of bilateral calf pain (new complaint) and took some Tramadol. Today she was getting ready for bed and ambulating with a walker but was not standing up completely straight and her daughter states "I knew something was wrong". She states that her fingers were cool and that she increased O2 from 2 L to 4L because O2 sat was not picking up. Daughter was urging her to go to the hospital. She then began "staring off" with "eyes flickering" so her daughter called 911. Her daughter states she was speaking with the patient during this time and patient was able to verbally respond saying "I am tired". Of note, patient has had recurrent hospitalizations for UTI and aspiration and has been on a pureed diet with thickened liquids however tonight she did eat some birthday cake for her daughter's birthday. Patient has one prior intubation for COPD in 2002. She was also hospitalized September 09 in [facility] for UTI and pneumonia for 9 days. She then went to rehab and was readmitted to [facility] for sepsis , UTI, pneumonia and was hospitalized for 2 weeks (on pressors for 3-4 days, not intubated). She was discharged to rehab and has now been home at her daughter's house since October 24, 2016. She was started on an unknown antibiotic and had taken one dose tonight. Her daughter states this was started in anticipation of urologic procedure by Dr. Gutierrez scheduled for later this week for intravesicular antibiotics. Patient has also had a cough x2 days. No fever. Her daughter states that she made a living will during a past hospitalization and said "she wanted everything done unless she had no hope of improving or if she was going to be a vegetable. 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 SUBJ 12/07: Remains intubated, not on sedation. epinephrine weaned off. Levophed at 5 mcg/min. Opens eyes to stimulation. Weakly follows commands. Family at bedside. Cardiac arrest possible not primary but secondary to severe walt pneumonia, sev sepsis and hypoxia 12/08: Awakens off sedation and follows commands. Remains orally intubated on mechanical ventilation. Hypotensive on Levophed 12 mics per minute. 12/09 - yesterday awake off all sedation follows commands. Currently not on tube feeds. No bowel movement. Tmax 99. Subjective 12/10: Extubated yesterday without complication. Failed swallow evaluation currently in 4 L nasal cannula satting 95%. Somewhat agitated right now. Objective Vital Signs Date Time Temp Pulse Resp B/P Pulse Ox O2 Delivery O2 Flow Rate FiO2 12/10/16 07:00 95 Nasal Cannula 4.00 12/10/16 06:00 67 122/71 127/67 12/10/16 04:00 97.3 24 12/09/16 08:49 35 Intake and Output 12/09/16 12/09/16 12/10/16 08:00 16:00 00:00 Intake Total 682 ml 2132 ml Output Total 200 ml 450 ml Balance 482 ml 1682 ml Result Diagram: 12/10/16 0542 12/10/16 0542 Other Results Microbiology Date/Time Procedure Status Source Growth 12/07/16 00:55 Urine Culture - Final Complete Urine Catheterized Urine NO GROWTH IN 48 HOURS. 12/07/16 00:40 Aerobic Blood Culture - Preliminary Resulted Blood Peripheral NO GROWTH IN 2 DAYS 12/07/16 00:40 Anaerobic Blood Culture - Preliminary Resulted Blood Peripheral NO GROWTH IN 2 DAYS Imaging Last Impressions Chest X-Ray 12/10/16 0600 Signed Impressions: Service Date/Time: November 04:28 - CONCLUSION: Persistent basilar infiltrates with moderate size pleural effusions. Aorta is quite tortuous.. Trevor Nieto MD Upper Extremity Ultrasound 12/09/16 0000 Signed Impressions: Service Date/Time: Friday, December 09, 2016 17:03 - CONCLUSION: Extensive venous thrombosis as above. Vishal Livingston MD Shoulder X-Ray 12/09/16 0000 Signed Impressions: Service Date/Time: Friday, December 09, 2016 15:35 - CONCLUSION: Postoperative and remote posttraumatic changes of the left proximal humerus. Vishal Livingston MD Head CT 12/07/16 0000 Signed Impressions: Service Date/Time: Wednesday, December 07, 2016 02:21 - CONCLUSION: Chronic and small vessel ischemic changes without any evidence for acute hemorrhage or mass effect. Maryellen Hobson MD CT Angiography 12/07/16 0000 Signed Impressions: Service Date/Time: Wednesday, December 07, 2016 02:27 - CONCLUSION: Bibasilar consolidation worse on the right. Maryellen Hosbon MD Objective Remarks GENERAL: 86-year-old female, critically ill currently resting in bed in no acute distress on nasal cannula SKIN: Warm and dry. No rash HEAD: Atraumatic. Normocephalic. EYES: Pupils about 3 mm bilaterally and reactive. No scleral icterus. No injection or drainage. ENT: No nasal bleeding or discharge. Mucous membranes pink and moist. NECK: Trachea midline. No JVD. CARDIOVASCULAR: RRR. S1, S2 no S4. Without murmur RESPIRATORY: A few scattered fine crackles appreciated in bases bilaterally with diminished breath sounds no wheeze GASTROINTESTINAL: Abdomen soft, nontender, nondistended. Hypoactive bowel sounds appreciated MUSCULOSKELETAL: Extremities with trace bilateral lower extremity peripheral edema. Scar overlying medial aspect of right ankle without erythema or drainage. Noted edema in the left upper extremity 1-2+. 1+ edema in the right upper extremity NEUROLOGICAL: Cranial nerves II through grossly intact. Hard of hearing. Strength is equal and symmetric. Normal sensation A/P Assessment and Plan NEURO/PSYCH: Acute encephalopathy Hard of hearing - hearing aid left ear Dementia disorder not otherwise specified Depression 12/07 - CT brain revealed chronic and small vessel ischemic changes Patient previously on Namenda 20 mg daily and Aricept 10 mg daily for dementia Patient previously on bupropion 150 mg daily, BuSpar 2.5 mg daily and Mirabreq 25 mg daily for depression Fentanyl 50 mcg IV every hour/Dilaudid 0.5 mg every 4 hours as needed for pain management RESP: Acute respiratory failure COPD with 2 L home oxygen requirement. Follows Dr. Pratt Tobacco abuse Bronchiectasis Moderate bilateral pleural effusions Orotracheally intubated by [facility]. ET tube pulled back as it was in right mainstem bronchus. Currently on PSV trial in attempt to extubate Ventilator bundle Currently on duo nebs every 6 hours without pedal every 2 hours as needed for breakthrough Hydrocortisone 100 mg IV every 8 hours started 12/08. Chest x-ray 12/06/16ET tube is at right mainstem. Opacification right lower lobe with complete, it right pleural effusion, tortuous appearing aorta CT pulmonary angiogram - No PE. Right lower lobe consolidation and bronchiectasis. LLL consolidation. Will receive 1 mg IV lead Bumex 1 now. Limited IV fluids. Recheck chest x- ray in a.m. Might need therapeutic thoracentesis but unable currently to heparin drip CV: Cardiac arrest - reportedly presenting rhythm of Torsades/V tach per [facility]. Asystole in ED x2 Chronic systolic heart failure - ejection fraction 25% Elevated troponin Hypertension Patient had Torsades/Vtach per [facility] but no shockable rhythm in ED. Elevated troponin, cardiology consult noted Dr. Yancey. 12/07 echocardiogram LVEF 25%, hypokinesis of the mid distal, anteroseptal, anterior, anterior lateral and apical segments, moderate TR. Right atrium dilatation. CASEY 52 mmHg Norepinephrine at 1 mics grams per minute to maintain mean arterial pressure greater than 65. Discontinue Flowtrack Stress dose steroids hydrocortisone 100 every 8. Wean starting tomorrow GI: Chronic aspiration Dysphagia Hiatal hernia Failed swallow evaluation Will start PPN at 50 cc an hour Patient is on Prilosec 20 mg daily at home. Currently Protonix 40 mg IV daily Colace/senna Senokot for bowel regimen to be held. We'll do glycerin suppositories for now Patient is on a modified diet (pured with thickened liquids) at home. FEN/RENAL: Acute kidney injury - resolved Hypermagnesemia (following Magnesium administration) Monitor intake and output, monitor electrolytes, replace electrolytes as indicated Received IV contrast 12/07. Avoid nephrotoxins. 40 mEq potassium chloride, 2 g mag sulfate IV 1. Recheck in a.m. ID: Acute aspiration pneumonia h/o recurrent UTI (uncertain MDRO history) Chest x-ray with right lower lobe infiltrate CTA chest with RLL consolidation and bronchiectasis. Empiric coverage with Zosyn, Vancomycin. Pertinent cultures Blood cultures 2 - 12/07 - no growth urine - 12/07 - no growth HEME: Leukocytosis Normocytic anemia Monitor CBC daily. Follow trends ENDO: Acute hyperglycemia Hypothyroidism Low-dose insulin sliding scale with bedside glucose every 6 hours Takes nature thyroid 32.4 mg daily Prophylaxis - GI - Protonix - DVT - SCD/heparin subcutaneous ACCESS: Right femoral central venous line placed by Dr. Ball 12/07 #4 left femoral art line placed 12/07 day #4 Critical Care: The total care time was 35 minutes. Time to perform other separately billable procedures was not included in the critical care time. Toño Vergara MD December 10, 2016 09:58
[2016-12-10] MEDS ORDERED: POTASSIUM CHLOR 40 MEQ PREMIX 100 ML IV ONE (10:00)
[2016-12-10] MEDS ORDERED: GLYCERIN ADULT 2 GM SUPP RECTAL PRN (10:00)
[2016-12-10] MEDS ORDERED: GLYCERIN ADULT 2 GM SUPP RECTAL ONE (10:30)
[2016-12-10] MEDS ORDERED: SODIUM PHOSPHATE INJ 15 MMOL in SODIUM CHLORIDE 0.9% INJ 150 ML IV ONE (11:00)
[2016-12-10] MEDS ORDERED: METHYLNALTREXONE BROMIDE 12 MG/0.6 ML VIAL SQ ONE (11:00)
[2016-12-10] MEDS ORDERED: HYDROmorphone HCL PF 1 MG/ML VIAL IV PUSH PRN (12:00)
[2016-12-10] MEDS: VANCOMYCIN INJ 1,500 MG in SODIUM CHLORID 0.9% 500 ML INJ 500 ML IV SCH (12:07)
--- NOTE | 2016-12-10 12:38 | HHI.PR ---
Subjective Remarks She is awake and off the vent .. ABG's were OK. CXR shows basal infiltrates .Has DVT in LUE Objective Vital Signs Date Time Temp Pulse Resp B/P Pulse Ox O2 Delivery O2 Flow Rate FiO2 12/10/16 07:00 95 Nasal Cannula 4.00 12/10/16 06:00 67 122/71 127/67 12/10/16 06:00 67 12/10/16 04:00 97.3 68 24 123/66 97 123/63 12/10/16 04:00 68 12/10/16 02:00 63 12/10/16 00:00 98.7 65 23 118/69 97 120/63 12/10/16 00:00 65 12/09/16 22:00 64 12/09/16 20:53 94 Nasal Cannula 4.00 12/09/16 20:00 95 Nasal Cannula 4.00 12/09/16 20:00 98.2 63 19 110/64 95 107/53 12/09/16 20:00 63 12/09/16 18:00 75 105/62 99/48 12/09/16 16:00 98.8 72 21 111/66 94 105/55 12/09/16 15:00 73 12/09/16 14:00 67 I/O 12/09/16 12/09/16 12/09/16 12/10/16 12/10/16 12/10/16 07:00 15:00 23:00 07:00 15:00 23:00 Intake Total 682 ml 2132 ml 781 ml Output Total 200 ml 450 ml 200 ml Balance 482 ml 1682 ml 581 ml IV Total 682 ml 2132 ml 781 ml Output Urine Total 200 ml 450 ml 200 ml Stool Total 0 ml # Bowel Movements 0 Result Diagram: 12/10/16 0542 12/10/16 0542 Objective Remarks This is an elderly thinly built white female alert . HEENT: Head normocephalic. Pupils are reactive. Tongue moist. Throat is clear. NECK: Supple. No lymphadenopathy. CHEST: Distant breath sounds with expiratory wheezes and occasional crackles at the right base. HEART: The heart sounds are regular. S1 and S2. ABDOMEN: Soft and benign. Bowel sounds are active. EXT No edema. Moves all well. Assessment and Plan Assessment and Plan IMPRESSION 1. COPD with acute exacerbation 2. Basilar pneumonia 3. Anxiety 4. Acute respiratory failure 5. Aspiration pneumonia 6. Severe COPD with emphysema 7. Dementia 8. History of atrial fibrillation 9. Status post cardiac arrest. Plan : 1. Wean O2 to 3l 2. Diuretic daily. 3. Continue antibiotics.Anticoagulants 4. Nebs qid , duoneb. 5. D/C solucortef 6. Diurese cautiously 7. Swallow test and decide if she needs a PEG. Guillermo Pratt MD December 10, 2016 12:38
[2016-12-10 13:04] LABS: APTT (PATIENT) 62.4 SEC (24.3-30.1)
--- NOTE | 2016-12-10 16:53 | HHI.HCPN ---
Reason for visit a. To assist with evaluation and management of symptoms including: dyspnea, dysphagia, pain, weakness. b. To assist medical decision maker(s) with: better understanding of current medical conditions; weighing benefits/burdens of medical treatment options; making medical treatment decisions. . (Linh Echavarria) Subjective/Interval History Patient seen and examined in ICU. Son, daughter and friend were at bedside. She is now extubated, on 4 L nasal cannula, alert and interactive. She complains of pain in her chest and left shoulder which worsens with movement, deep inspiration or cough. She is seen to have multiple small ecchymosis on anterior chest wall. Family was updated regarding current clinical findings including persistent basilar infiltrates with moderate-sized pleural effusion on chest x-ray. Her white blood cell count continues to decline and is 15.1 today. Hemoglobin is 10.1 and hematocrit 32.5 with platelet count of 162. Kidney function continues to improve with BUN 23 and creatinine 0.65 today. Troponin on presentation was 0.03 rising to 2.46, 2.11, 0.65 and 0.22 at last draw. Blood culture was positive for Staphylococcus epidermidis, she is on appropriate antibiotic therapy. Pulmonology is following and recommends weaning the oxygen as tolerated to 3 L with continued antibiotics, nebulizers, Solu-Cortef and Toradol for pain to prevent sedation from narcotic pain medications. She failed swallow evaluation and as of yesterday family was refusing artificial feeding tube. Cardiology is following with no acute interventions planned at this time. Notes prognosis is guarded. . (Linh Echavarria) Advance Directives Living Will: Never completed Health Care Surrogate: Never completed Durable Power of Mechanic And Welder: Never completed (Linh Echavarria) Advance Directive Specifics Health Care Surrogate(s): Patient is currently incapacitated to make her own decisions, uncertain if she regained capacity. According to [place] statutes, health care proxy decision- making would fall to the majority of adult children. Patient has one son and one daughter. . (Linh Echavarria) Objective Vital Signs Date Time Temp Pulse Resp B/P Pulse Ox O2 Delivery O2 Flow Rate FiO2 12/10/16 15:01 74 37 106/60 91 109/63 12/10/16 15:01 74 12/10/16 15:00 71 37 106/61 96 12/10/16 15:00 71 12/10/16 14:00 94.4 67 18 94/64 93 87/47 12/10/16 14:00 67 12/10/16 13:00 65 12/10/16 13:00 65 28 89/52 93 89/47 12/10/16 12:00 66 12/10/16 12:00 66 29 98/62 94 95/51 12/10/16 11:00 62 12/10/16 11:00 62 18 99/54 95 95/48 12/10/16 10:00 64 18 95/54 93 97/48 12/10/16 10:00 64 12/10/16 09:00 64 12/10/16 09:00 64 22 102/81 97 113/59 12/10/16 08:00 68 12/10/16 08:00 97.0 68 17 110/66 95 126/67 12/10/16 07:00 95 Nasal Cannula 4.00 12/10/16 06:00 67 122/71 127/67 12/10/16 06:00 67 12/10/16 04:00 97.3 68 24 123/66 97 123/63 12/10/16 04:00 68 12/10/16 02:00 63 12/10/16 00:00 98.7 65 23 118/69 97 120/63 12/10/16 00:00 65 12/09/16 22:00 64 12/09/16 20:53 94 Nasal Cannula 4.00 12/09/16 20:00 95 Nasal Cannula 4.00 12/09/16 20:00 98.2 63 19 110/64 95 107/53 12/09/16 20:00 63 12/09/16 18:00 75 105/62 99/48 Intake & Output 12/10/16 12/10/16 07:00 19:00 Intake Total 1413 ml 1447 ml Output Total 450 ml 1150 ml Balance 963 ml 297 ml IV Total 1413 ml 1447 ml Output Urine Total 450 ml 1150 ml Stool Total 0 ml Physical Exam CONSTITUTIONAL/GENERAL: This is an elderly, frail appearing patient extubated on 4 L nasal cannula. TUBES/LINES/DRAINS: PIV right forearm, Victoria. SKIN: Ecchymoses on upper/ lower extremities and chest. Left forearm with erythema, swelling and tenderness. Skin tear left UE, dressing intact. Dressing to left norton. ENT: Hard of hearing, wearing hearing aids in left ear CARDIOVASCULAR: Systolic murmur noted, regular. RESPIRATORY/CHEST: Symmetric, unlabored respirations, lungs clear diminished with rare rhonchi. GASTROINTESTINAL: Abdomen soft, non-tender, nondistended. No guarding. Bowel sounds hypoactive. GENITOURINARY: Without palpable bladder distension. Victoria catheter in place. MUSCULOSKELETAL: Bilateral upper extremities with edema. No mottling or clubbing. NEUROLOGICAL: Awake, alert, interactive, makes needs known, oriented to self and surroundings. PSYCHIATRIC: Calm, cooperative. . (Linh Echavarria) Diagnostic Tests Laboratory Laboratory Tests Test 12/07/16 12/08/16 12/08/16 12/09/16 22:42 06:15 13:18 06:15 Troponin I 0.65 NG/ML (0.02-0.05) White Blood Count 18.8 TH/MM3 15.6 TH/MM3 (4.0-11.0) (4.0-11.0) Red Blood Count 4.20 MIL/MM3 4.07 MIL/MM3 (4.00-5.30) (4.00-5.30) Hemoglobin 11.2 GM/DL 10.5 GM/DL (11.6-15.3) (11.6-15.3) Hematocrit 35.6 % 34.4 % (35.0-46.0) (35.0-46.0) Mean Corpuscular Volume 84.8 FL 84.5 FL (80.0-100.0) (80.0-100.0) Mean Corpuscular Hemoglobin 26.8 PG 25.9 PG (27.0-34.0) (27.0-34.0) Mean Corpuscular Hemoglobin 31.6 % 30.7 % Concent (32.0-36.0) (32.0-36.0) Red Cell Distribution Width 18.0 % 17.0 % (11.6-17.2) (11.6-17.2) Platelet Count 157 TH/MM3 131 TH/MM3 (150-450) (150-450) Mean Platelet Volume 9.7 FL 9.7 FL (7.0-11.0) (7.0-11.0) Neutrophils (%) (Auto) 81.7 % 93.4 % (16.0-70.0) (16.0-70.0) Lymphocytes (%) (Auto) 8.9 % 3.6 % (9.0-44.0) (9.0-44.0) Monocytes (%) (Auto) 7.3 % (0.0-8.0) 2.9 % (0.0-8.0) Eosinophils (%) (Auto) 1.7 % (0.0-4.0) 0.0 % (0.0-4.0) Basophils (%) (Auto) 0.4 % (0.0-2.0) 0.1 % (0.0-2.0) Neutrophils # (Auto) 15.4 TH/MM3 14.6 TH/MM3 (1.8-7.7) (1.8-7.7) Lymphocytes # (Auto) 1.7 TH/MM3 0.6 TH/MM3 (1.0-4.8) (1.0-4.8) Monocytes # (Auto) 1.4 TH/MM3 0.5 TH/MM3 (0-0.9) (0-0.9) Eosinophils # (Auto) 0.3 TH/MM3 0.0 TH/MM3 (0-0.4) (0-0.4) Basophils # (Auto) 0.1 TH/MM3 0.0 TH/MM3 (0-0.2) (0-0.2) CBC Comment DIFF FINAL DIFF FINAL Differential Comment Sodium Level 145 MEQ/L 144 MEQ/L (136-145) (136-145) Potassium Level 3.6 MEQ/L 3.6 MEQ/L (3.5-5.1) (3.5-5.1) Chloride Level 110 MEQ/L 110 MEQ/L (98-107) (98-107) Carbon Dioxide Level 27.2 MEQ/L 25.1 MEQ/L (21.0-32.0) (21.0-32.0) Anion Gap 8 MEQ/L (5-15) 9 MEQ/L (5-15) Blood Urea Nitrogen 21 MG/DL (7-18) 19 MG/DL (7-18) Creatinine 1.05 MG/DL 0.83 MG/DL (0.50-1.00) (0.50-1.00) Estimat Glomerular Filtration 49 ML/MIN (>89) 65 ML/MIN (>89) Rate Random Glucose 166 MG/DL 183 MG/DL (74-106) (74-106) Calcium Level 7.7 MG/DL 8.2 MG/DL (8.5-10.1) (8.5-10.1) Phosphorus Level 2.6 MG/DL (2.5-4.9) Magnesium Level 2.1 MG/DL (1.5-2.5) Total Bilirubin 1.1 MG/DL 0.8 MG/DL (0.2-1.0) (0.2-1.0) Aspartate Amino Transf 26 U/L (15-37) 20 U/L (15-37) (AST/SGOT) Alanine Aminotransferase 30 U/L (10-53) 23 U/L (10-53) (ALT/SGPT) Alkaline Phosphatase 87 U/L (45-117) 80 U/L (45-117) Total Protein 5.5 GM/DL 5.5 GM/DL (6.4-8.2) (6.4-8.2) Albumin 2.1 GM/DL 2.0 GM/DL (3.4-5.0) (3.4-5.0) Random Vancomycin Level 4.5 COMMENT Blood Gas Puncture Site ART LINE Blood Gas Patient Temperature 98.6 Blood Gas HCO3 22 mmol/L (22-26) Blood Gas Base Excess -2.5 mmol/L (-2-2) Blood Gas Oxygen Saturation 91 % (90-100) Arterial Blood pH 7.38 (7.380-7.420) Arterial Blood Partial 38 mmHg (38-42) Pressure CO2 Arterial Blood Partial 72 mmHg Pressure O2 (61-120) Arterial Blood Oxygen Content 14.3 Vol % (12.0-20.0) Arterial Blood 2.0 % (0-4) Carboxyhemoglobin Arterial Blood Methemoglobin 1.2 % (0-2) Blood Gas Hemoglobin 11.1 G/DL (12.0-16.0) Oxygen Delivery Device VENTILATOR Blood Gas Ventilator Setting CPAP 515PS Blood Gas Inspired Oxygen 45 % Test 12/09/16 12/10/16 12/10/16 12/10/16 17:55 00:13 05:42 12:15 White Blood Count 16.3 TH/MM3 15.1 TH/MM3 (4.0-11.0) (4.0-11.0) Red Blood Count 3.80 MIL/MM3 3.90 MIL/MM3 (4.00-5.30) (4.00-5.30) Hemoglobin 10.1 GM/DL 10.1 GM/DL (11.6-15.3) (11.6-15.3) Hematocrit 31.9 % 32.5 % (35.0-46.0) (35.0-46.0) Mean Corpuscular Volume 83.9 FL 83.3 FL (80.0-100.0) (80.0-100.0) Mean Corpuscular Hemoglobin 26.7 PG 26.0 PG (27.0-34.0) (27.0-34.0) Mean Corpuscular Hemoglobin 31.8 % 31.1 % Concent (32.0-36.0) (32.0-36.0) Red Cell Distribution Width 16.9 % 17.1 % (11.6-17.2) (11.6-17.2) Platelet Count 162 TH/MM3 162 TH/MM3 (150-450) (150-450) Mean Platelet Volume 10.2 FL 9.5 FL (7.0-11.0) (7.0-11.0) Prothrombin Time 11.0 SEC (9.8-11.6) Prothromb Time International 1.0 RATIO Ratio Activated Partial 26.8 SEC 58.7 SEC 79.0 SEC 62.4 SEC Thromboplast Time (24.3-30.1) (24.3-30.1) (24.3-30.1) (24.3-30.1) Neutrophils (%) (Auto) 92.7 % (16.0-70.0) Lymphocytes (%) (Auto) 3.3 % (9.0-44.0) Monocytes (%) (Auto) 3.7 % (0.0-8.0) Eosinophils (%) (Auto) 0.0 % (0.0-4.0) Basophils (%) (Auto) 0.3 % (0.0-2.0) Neutrophils # (Auto) 14.0 TH/MM3 (1.8-7.7) Lymphocytes # (Auto) 0.5 TH/MM3 (1.0-4.8) Monocytes # (Auto) 0.6 TH/MM3 (0-0.9) Eosinophils # (Auto) 0.0 TH/MM3 (0-0.4) Basophils # (Auto) 0.0 TH/MM3 (0-0.2) CBC Comment DIFF FINAL Differential Comment Sodium Level 144 MEQ/L (136-145) Potassium Level 3.5 MEQ/L (3.5-5.1) Chloride Level 111 MEQ/L (98-107) Carbon Dioxide Level 23.5 MEQ/L (21.0-32.0) Anion Gap 10 MEQ/L (5-15) Blood Urea Nitrogen 23 MG/DL (7-18) Creatinine 0.65 MG/DL (0.50-1.00) Estimat Glomerular Filtration 86 ML/MIN (>89) Rate Random Glucose 208 MG/DL (74-106) Calcium Level 7.9 MG/DL (8.5-10.1) Phosphorus Level 2.3 MG/DL (2.5-4.9) Magnesium Level 2.3 MG/DL (1.5-2.5) Total Bilirubin 0.5 MG/DL (0.2-1.0) Aspartate Amino Transf 16 U/L (15-37) (AST/SGOT) Alanine Aminotransferase 20 U/L (10-53) (ALT/SGPT) Alkaline Phosphatase 72 U/L (45-117) Total Protein 5.3 GM/DL (6.4-8.2) Albumin 1.8 GM/DL (3.4-5.0) Test 12/10/16 12:45 Troponin I 0.22 NG/ML (0.02-0.05) (Linh Echavarria) Result Diagram: 12/10/16 0542 12/10/16 0542 Microbiology Microbiology Date/Time Procedure Status Source Growth 12/07/16 00:55 Urine Culture - Final Complete Urine Catheterized Urine NO GROWTH IN 48 HOURS. 12/07/16 00:40 Aerobic Blood Culture - Preliminary Resulted Blood Peripheral NO GROWTH IN 3 DAYS 12/07/16 00:40 Anaerobic Blood Culture - Preliminary Resulted Blood Peripheral NO GROWTH IN 3 DAYS 12/07/16 00:30 Aerobic Blood Culture - Final Resulted Blood Peripheral Staphylococcus Epidermidis 12/07/16 00:30 Anaerobic Blood Culture - Preliminary Resulted Blood Peripheral NO GROWTH IN 3 DAYS Imaging Last Impressions Chest X-Ray 12/10/16 0600 Signed Impressions: Service Date/Time: November 04:28 - CONCLUSION: Persistent basilar infiltrates with moderate size pleural effusions. Aorta is quite tortuous.. Trevor Nieto MD Upper Extremity Ultrasound 12/09/16 0000 Signed Impressions: Service Date/Time: Friday, December 09, 2016 17:03 - CONCLUSION: Extensive venous thrombosis as above. Vishal Livingston MD Shoulder X-Ray 12/09/16 0000 Signed Impressions: Service Date/Time: Friday, December 09, 2016 15:35 - CONCLUSION: Postoperative and remote posttraumatic changes of the left proximal humerus. Vishal iLvingston MD Head CT 12/07/16 0000 Signed Impressions: Service Date/Time: Wednesday, December 07, 2016 02:21 - CONCLUSION: Chronic and small vessel ischemic changes without any evidence for acute hemorrhage or mass effect. Maryellen Hobson MD CT Angiography 12/07/16 0000 Signed Impressions: Service Date/Time: Wednesday, December 07, 2016 02:27 - CONCLUSION: Bibasilar consolidation worse on the right. Maryellen Hobson MD Procedures * 12/08/16- extubation * 12/07/16 - left femoral arterial line placement * 12/06/16 - right triple lumen central line placement * 12/06/16 - Cardiac arrest x 3, Intubation . (Linh Echavarria) Assessment and Plan Disease Oriented Problem List: (1) Septic shock (2) Pneumonia (3) PEA (Pulseless electrical activity) (4) Bradycardia (5) COPD (chronic obstructive pulmonary disease) (6) Cardiopulmonary arrest with successful resuscitation (7) Lactic acidosis (8) Leukocytosis (9) DVT of axillary vein, acute left Symptom Scale: (1) Pain 0-10 Scale: Unable to quantify (2) Dyspnea 0-10 Scale: Unable to quantify (3) Weakness 0-10 Scale: Unable to quantify (4) Dysphagia Pertinent Non-Medical Issues Psychosocial: . Supported by son and daughter. Spiritual: Yarsanism josi, welcomes truck spotter support. Legal: Patient is currently incapacitated to make her own decisions, uncertain if she regained capacity. According to [place] statutes, health care proxy decision-making would fall to the majority of adult children. Patient has one son and one daughter. Ethical issues impacting care: No known concerns at this time. . Important Contacts * Qian Vargas, daughter/ co-HCP: [phone] (cell) or [phone] (work ) * Jerad Santana, son/co-HCP: [phone] . Prognosis Ms. Santana is an 86 year old female with dementia, oxygen dependent COPD admitted post cardiac arrest with underlying cardiomyopathy and COPD/ resp failure and pneumonia. Given her advanced age, comorbidities, repeat hospitalizations for recurrent UTI, aspiration pneumonia and sepsis her overall prognosis is poor. . Code Status: Full Code Plan * Patient is currently incapacitated to make her own decisions, uncertain if she will regain capacity. She has underlying mild dementia. According to [place] statutes, health care proxy decision-making would fall to the majority of adult children. Patient has one son and one daughter, both (Qian and Jerad ) want to serve as health care proxy decision makers. Once patient is more awake the daughter will again reexplore the patient's wishes regarding aggressive resuscitation. * FULL CODE * 12/09/16 Palliative care meeting: Family (son and daughter) both desire continued aggressive care including FULL CODE and reintubation if medically extubated. Patient now extubated and stable on nasal cannula. Family is not ready to consider transition to comfort. I am not certain if they will be able to make end of life decisions, unless pt is unresponsive. Palliative care will continue to follow, to assist in clarifying goals. They did determined today that no artificial feeding would be used, as they feel patient bears the same risk of aspiration with either artificial or oral feedings and the patient would prefer the pleasure of eating if the risk remains the same. * Insurance Office Manager support requested. * Discussed with Dr. Berger, Dr. Yancey and nurse, Stormy. SYMPTOMS: * Pain: potential sources include recent cardiopulmonary resuscitation, tubes, bedbound status and infection. She complains of significant pain in her chest and left shoulder likely from CPR. She has now developed a deep vein thrombosis involving the axillary, brachial skull, basilic and cephalic veins, currently receiving heparin. * Dyspnea: Extubated, stable on 4 L nasal cannula, underlying COPD, significant risk of recurrent aspiration, multiple episodes of aspiration pneumonia previously. Incentive spirometry encouraged. * Weakness: secondary to recent hospitalizations, recurrent aspiration pneumonia , urinary tract infections, cardiopulmonary resuscitation, bedbound status, infection. Family is requesting rehabilitation. In summary this is an 86 year old female with recurrent aspiration who had been on a pured diet with thickened liquids at home. It is likely that she will continue to aspirate. Family's goals remain very aggressive but after extensive discussion and have decided against artificial feeding as the risk of aspiration would remain regardless. The daughter who is the primary caregiver is willing to review continued goals of aggressive resuscitation with her mother once she is more awake. She has now developed a left upper extremity deep vein thrombosis as a sequelae of her previous events and is receiving heparin. The family will require extensive support and education through this process in determining the mother's goals of care. This will remain difficult due to the level of debility and mild dementia in the mother. Palliative care will continue to follow throughout hospital course to assist with symptom management and clarification of goals as needed. . (Linh Echavarria) Attestation To help prompt me to consider important information that might be impacting today's encounter and assessment, information from prior notes written by myself or my colleagues may have been "brought forward" into today's note. My signature on this note, however, is an attestation that I personally performed the exam, history, and/or decision-making noted today, and, unless otherwise indicated, the interactions with patient, family, and staff as well as the review of records all occurred today. I also attest that the listed assessment and stated plan reflect my best clinical judgment today based on the combination of historical information, prior notes, and today's exam/ interactions. When time spent is documented, it refers only to time spent today by the signer, or if indicated, combined time spent today by collaborating physician/nurse practitioner. (Linh Echavarria) Collaborating MD Comments . Chart reviewed. Case discussed with palliative care LEAD TELLER. Above LEAD TELLER note reviewed and I concur. . (Sea Dewey MD) Linh Echavarria December 10, 2016 16:53 Sea Dewey MD December 15, 2016 16:40
--- NOTE | 2016-12-10 17:25 | PD.CARD.PN ---
Subjective Subjective Remarks Off pressors, no CP or SOB Objective Medications Current Medications Medications (Trade) Dose Ordered Sig/Kaleigh Route Start Time Stop Time Status Last Admin Chlorhexidine Gluconate 15 ml 15 ml BID@08,20 MT 12/07/16 08:00 12/09/16 07:33 (NS 1000 ml Inj) 1,000 ml @ 30 mls/hr Q24H IV 12/07/16 01:18 12/10/16 00:46 (NS Flush) 2 ml UNSCH PRN .XX 12/07/16 01:30 12/07/16 20:45 (NS Flush) 2 ml BID .XX 12/07/16 09:00 12/09/16 20:30 (Tylenol) 650 mg Q6H PRN PO 12/07/16 01:30 12/08/16 16:12 (fentaNYL INJ) 50 mcg Q1H PRN IV PUSH 12/07/16 01:30 12/10/16 13:44 (Protonix Inj) 40 mg DAILY IV 12/07/16 09:00 12/10/16 09:44 Miscellaneous Information 1 Q361D XX 12/07/16 01:30 12/07/16 03:00 (Chlorhexidine 2% Cloth) 3 pack Taper DAILY@04 TOP 12/07/16 04:00 12/03/17 03:59 12/10/16 03:29 Chlorhexidine Gluconate 3 pack 3 pack UNSCH PRN TOP 12/07/16 01:30 Pharmacy Profile Note 0 ml @ 0 mls/hr UNSCH OTHER 12/07/16 02:15 (Levophed-Dextrose Drip) 250 ml @ 0 mls/hr TITRATE IV 12/07/16 05:45 12/09/16 16:48 Terbutaline Sulfate 1 mg 1 mg UNSCH PRN SQ 12/07/16 05:45 (Zithromax Inj/ NS 250 ml Inj) 250 ml @ 250 mls/hr Q24H IV 12/07/16 09:00 12/10/16 09:44 (D50w (Vial) Inj) 50 ml UNSCH PRN IV 12/07/16 09:45 (Glucagon Inj) 1 mg UNSCH PRN OTHER 12/07/16 09:45 Insulin Aspart 1 1 Q6H SQ 12/07/16 10:00 12/10/16 16:00 (Vancomycin Inj/ NS 500 ml Inj) 515 ml @ 250 mls/hr Q24H IV 12/08/16 12:00 12/10/16 12:07 Miscellaneous Information SPECIFIC LAB TO BE DRAWN:VANCOMYCIN TROUGH DATE TO... ONCE ONCE .XX 12/11/16 11:45 12/11/16 11:46 (Zosyn 3.375 Gm Premix) 50 ml @ 100 mls/hr Q6H IV 12/08/16 20:00 12/10/16 16:14 (Senna Liq) 8.8 mg DAILY PO 12/10/16 09:00 Docusate Sodium 100 mg 100 mg Q12HR PO 12/09/16 21:00 (Heparin-D5W Inj) 250 ml @ 0 mls/hr TITRATE IV 12/09/16 17:30 12/10/16 12:08 (Symbicort 160-4.5 Inh) 2 puff BID INH 12/10/16 21:00 Glycerin 2 gm 2 gm DAILY PRN RECTAL 12/10/16 10:00 Multivitamins 10 ml/Folic Acid 1 mg/Amino Acids/ Electrolytes/ Dextrose 2,010.2 ml @ 50 mls/hr Q24H IV 12/10/16 20:00 (Liposyn Iii 20% Inj) 250 ml @ 31.25 mls/ hr 2XWEEK IV 12/10/16 20:00 (Dilaudid Pf Inj) 0.5 mg Q4H PRN IV PUSH 12/10/16 12:00 (Deltasone) 10 mg DAILY PO 12/11/16 09:00 Vital Signs / I&O Vital Signs Date Time Temp Pulse Resp B/P Pulse Ox O2 Delivery O2 Flow Rate FiO2 12/10/16 15:01 74 37 106/60 91 109/63 12/10/16 15:01 74 12/10/16 15:00 71 37 106/61 96 12/10/16 15:00 71 12/10/16 14:00 94.4 67 18 94/64 93 87/47 12/10/16 14:00 67 12/10/16 13:00 65 12/10/16 13:00 65 28 89/52 93 89/47 12/10/16 12:00 66 12/10/16 12:00 66 29 98/62 94 95/51 12/10/16 11:00 62 12/10/16 11:00 62 18 99/54 95 95/48 12/10/16 10:00 64 18 95/54 93 97/48 12/10/16 10:00 64 12/10/16 09:00 64 12/10/16 09:00 64 22 102/81 97 113/59 12/10/16 08:00 68 12/10/16 08:00 97.0 68 17 110/66 95 126/67 12/10/16 07:00 95 Nasal Cannula 4.00 12/10/16 06:00 67 122/71 127/67 12/10/16 06:00 67 12/10/16 04:00 97.3 68 24 123/66 97 123/63 12/10/16 04:00 68 12/10/16 02:00 63 12/10/16 00:00 98.7 65 23 118/69 97 120/63 12/10/16 00:00 65 12/09/16 22:00 64 12/09/16 20:53 94 Nasal Cannula 4.00 12/09/16 20:00 95 Nasal Cannula 4.00 12/09/16 20:00 98.2 63 19 110/64 95 107/53 12/09/16 20:00 63 12/09/16 18:00 75 105/62 99/48 I/O 12/09/16 12/09/16 12/09/16 12/10/16 12/10/16 12/10/16 07:00 15:00 23:00 07:00 15:00 23:00 Intake Total 682 ml 2132 ml 781 ml 1447 ml Output Total 200 ml 450 ml 200 ml 1150 ml Balance 482 ml 1682 ml 581 ml 297 ml IV Total 682 ml 2132 ml 781 ml 1447 ml Output Urine Total 200 ml 450 ml 200 ml 1150 ml Stool Total 0 ml 0 ml # Bowel Movements 0 Physical Exam GENERAL: In NAD SKIN: Warm and dry. HEAD: Normocephalic. EYES: No scleral icterus. No injection or drainage. NECK: Supple, trachea midline. No JVD or lymphadenopathy. CARDIOVASCULAR: Regular rate and rhythm without murmurs, gallops, or rubs. RESPIRATORY: Breath sounds equal bilaterally. No accessory muscle use. GASTROINTESTINAL: Abdomen soft, non-tender, nondistended. MUSCULOSKELETAL: No cyanosis, or edema. Laboratory Laboratory Tests Test 12/09/16 12/10/16 12/10/16 12/10/16 17:55 00:13 05:42 12:15 White Blood Count 16.3 TH/MM3 15.1 TH/MM3 Red Blood Count 3.80 MIL/MM3 3.90 MIL/MM3 Hemoglobin 10.1 GM/DL 10.1 GM/DL Hematocrit 31.9 % 32.5 % Mean Corpuscular Volume 83.9 FL 83.3 FL Mean Corpuscular Hemoglobin 26.7 PG 26.0 PG Mean Corpuscular Hemoglobin 31.8 % 31.1 % Concent Red Cell Distribution Width 16.9 % 17.1 % Platelet Count 162 TH/MM3 162 TH/MM3 Mean Platelet Volume 10.2 FL 9.5 FL Prothrombin Time 11.0 SEC Prothromb Time International 1.0 RATIO Ratio Activated Partial 26.8 SEC 58.7 SEC 79.0 SEC 62.4 SEC Thromboplast Time Neutrophils (%) (Auto) 92.7 % Lymphocytes (%) (Auto) 3.3 % Monocytes (%) (Auto) 3.7 % Eosinophils (%) (Auto) 0.0 % Basophils (%) (Auto) 0.3 % Neutrophils # (Auto) 14.0 TH/MM3 Lymphocytes # (Auto) 0.5 TH/MM3 Monocytes # (Auto) 0.6 TH/MM3 Eosinophils # (Auto) 0.0 TH/MM3 Basophils # (Auto) 0.0 TH/MM3 CBC Comment DIFF FINAL Differential Comment Sodium Level 144 MEQ/L Potassium Level 3.5 MEQ/L Chloride Level 111 MEQ/L Carbon Dioxide Level 23.5 MEQ/L Anion Gap 10 MEQ/L Blood Urea Nitrogen 23 MG/DL Creatinine 0.65 MG/DL Estimat Glomerular Filtration 86 ML/MIN Rate Random Glucose 208 MG/DL Calcium Level 7.9 MG/DL Phosphorus Level 2.3 MG/DL Magnesium Level 2.3 MG/DL Total Bilirubin 0.5 MG/DL Aspartate Amino Transf 16 U/L (AST/SGOT) Alanine Aminotransferase 20 U/L (ALT/SGPT) Alkaline Phosphatase 72 U/L Total Protein 5.3 GM/DL Albumin 1.8 GM/DL Test 12/10/16 12:45 Troponin I 0.22 NG/ML Imaging Last Impressions Chest X-Ray 12/10/16 0600 Signed Impressions: Service Date/Time: November 04:28 - CONCLUSION: Persistent basilar infiltrates with moderate size pleural effusions. Aorta is quite tortuous.. Trevor Nieto MD Upper Extremity Ultrasound 12/09/16 0000 Signed Impressions: Service Date/Time: Friday, December 09, 2016 17:03 - CONCLUSION: Extensive venous thrombosis as above. Vishal Livingston MD Shoulder X-Ray 12/09/16 0000 Signed Impressions: Service Date/Time: Friday, December 09, 2016 15:35 - CONCLUSION: Postoperative and remote posttraumatic changes of the left proximal humerus. Vishal Livingston MD Head CT 12/07/16 0000 Signed Impressions: Service Date/Time: Wednesday, December 07, 2016 02:21 - CONCLUSION: Chronic and small vessel ischemic changes without any evidence for acute hemorrhage or mass effect. Maryellen Hobson MD CT Angiography 12/07/16 0000 Signed Impressions: Service Date/Time: Wednesday, December 07, 2016 02:27 - CONCLUSION: Bibasilar consolidation worse on the right. Maryellen Hobson MD Assessment and Plan Problem List: (1) Cardiopulmonary arrest with successful resuscitation (2) PEA (Pulseless electrical activity) (3) Septic shock (4) COPD (chronic obstructive pulmonary disease) (5) Pneumonia Assessment and Plan Successfully extubated. Now off pressors. Rhythm stable. Continue tx for septic shock. Prognosis still guarded but continuing progress achieved. D/w pt's family , palliative care involved. Imer Yancey MD December 10, 2016 17:25
[2016-12-10 18:48] LABS: APTT (PATIENT) 61.7 SEC (24.3-30.1)
[2016-12-10] MEDS ORDERED: FAT EMULSION 20% INJ 250 ML (@10 mls/hr) IV SCH (20:00)
[2016-12-10] MEDS ORDERED: CLINIMIX E 4.25/5 2000 mL- >42 mls/hr IV SCH ×3 (20:00)
[2016-12-10 20:09] LABS: BLOOD GAS BASE EXCESS -1.6 mmol/L (-2-2); BLOOD GAS CARBOXYHEMOGLOBIN 1.5 % (0-4); BLOOD GAS HCO3 24 mmol/L (22-26); BLOOD GAS METHEMOGLOBIN 1.1 % (0-2); BLOOD GAS O2 HGB SATURATION 86 % (90-100); BLOOD GAS OXYGEN CONTENT 12.1 Vol % (12.0-20.0); BLOOD GAS PCO2 45 mmHg (38-42); BLOOD GAS PO2 62 mmHg (61-120); BLOOD GAS TOTAL HGB 9.9 G/DL (12.0-16.0); TEMP CORR TO 98.6
[2016-12-10 20:11] LABS: CRITICAL VALUE YES; DRAW SITE ART LINE; LITER FLOW 4 L/M; OXYGEN DEVICE NASAL CANNULA; STAT YES
[2016-12-10] MEDS: BUDESONIDE-FORMOTEROL 160/4.5 MCG INHALER INH SCH (21:00)
[2016-12-11] VITALS (18 sets, daily range): BP systolic 91–127; BP diastolic 46–83; PULSE 59–83; RESP 22–40; TEMP 97–98; O2SAT 65–99
[2016-12-11] MEDS: PIPERACIL-TAZO 3.375 GM PREMIX 50 ML IV SCH ×2 (02:39→08:00)
[2016-12-11] MEDS: RESP: ALBUTEROL 2.5 MG/IPRATROPIUM 0.5 MG NEB (SCH) NEB ×2 (03:33→10:00)
[2016-12-11] MEDS: INSULIN ASPART SUPPLEMENTAL SCALE SQ SCH (04:00)
[2016-12-11 04:10] LABS: AUTOMATED NEUTROPHIL # 8.2 TH/MM3 (1.8-7.7); BASOPHIL % 0.1 % (0.0-2.0); EOSINOPHIL % 0.1 % (0.0-4.0); HEMATOCRIT 30.2 % (35.0-46.0); HEMO FLAGS DIFF FINAL; LYMPH % 7.6 % (9.0-44.0); LYMPHOCYTE # 0.7 TH/MM3 (1.0-4.8); MEAN CELL VOLUME 83.9 FL (80.0-100.0); MEAN CORPUSCULAR HEMOGLOBIN 26.6 PG (27.0-34.0); MEAN CORPUSCULAR HGB CONC 31.7 % (32.0-36.0); MONO % 5.7 % (0.0-8.0); NEUT % 86.5 % (16.0-70.0); PLATELET COUNT 140 TH/MM3 (150-450); RED CELL DISTRIBUTION WIDTH 17.1 % (11.6-17.2); WHITE BLOOD COUNT 9.4 TH/MM3 (4.0-11.0)
[2016-12-11 04:11] LABS: APTT (PATIENT) 27.9 SEC (24.3-30.1); PROTHROMBIN TIME - PATIENT 11.4 SEC (9.8-11.6)
[2016-12-11 04:16] LABS: BICARBONATE 27.6 MEQ/L (21.0-32.0); MAGNESIUM 2.2 MG/DL (1.5-2.5); POTASSIUM 3.2 MEQ/L (3.5-5.1)
--- NOTE | 2016-12-11 06:50 | RADRPT ---
EXAM DATE/TIME: 12/11/2016 04:42 [place] COMPARISON: No previous studies available for comparison. INDICATIONS : Shortness of breath. MEDICAL HISTORY : None. SURGICAL HISTORY : None. ENCOUNTER: Initial ACUITY: 1 day PAIN SCORE: Non-responsive. LOCATION: chest FINDINGS: A single view of the chest demonstrates now complete opacification of the right hemithorax with volum e loss suspicious for right lung collapse. Mild residual consolidation left lower lobe with a pleural effusion Osseous structures are intact. CONCLUSION: Collapse of the right lung new since previous study. Volume loss and now complete opacification of th e right hemithorax Trevor Nieto MD on December 11, 2016 at 6:48 Board Certified Radiologist. This report was verified electronically.
[2016-12-11] MEDS: CHLORHEXIDINE 0.12% (ORAL KIT) 15 ML CUP MT SCH ×2 (08:00→20:00)
--- NOTE | 2016-12-11 08:54 | HHI.CCPN ---
Subjective Remarks/Hospital Course 86 yo WF with PMH of COPD on 2 L home O2, CHF who is brought in by [facility] after initial call for lethargy. [facility] reported that she was in Torsades. They started to administer magnesium sulfate and administered partial dose when the IV blew. She was the shocked for Vtach. She was intubated after receiving Ativan 4 mg IV and etomidate 20 mg IV. She was then noted to be in asystole. She was given epinephrine and had ROSC. EKG upon arrival to the emergency department demonstrated an irregular rhythm that appears to be slow A. fib. Due to concern LBBB a STEMI alert was called. Patient subsequently had a recurrent cardiac arrest where she had bradycardia followed by asystole at 23: 25 for 10 minutes (received Epi x2, bicarb x1 amp, calcium carbonate x1) and then another code at 23:48 for 4 minutes (received epi x3, sodium bicarb x2 amps). Dr. Ball discussed with Dr. Hawley and he cancelled STEMI alert. Patient remains hypotensive post-arrest and is currently on Epinephrine drip and Dr. Ball has placed a R femoral central line. Her daughter states that yesterday patient was complaining of bilateral calf pain (new complaint) and took some Tramadol. Today she was getting ready for bed and ambulating with a walker but was not standing up completely straight and her daughter states "I knew something was wrong". She states that her fingers were cool and that she increased O2 from 2 L to 4L because O2 sat was not picking up. Daughter was urging her to go to the hospital. She then began "staring off" with "eyes flickering" so her daughter called 911. Her daughter states she was speaking with the patient during this time and patient was able to verbally respond saying "I am tired". Of note, patient has had recurrent hospitalizations for UTI and aspiration and has been on a pureed diet with thickened liquids however tonight she did eat some birthday cake for her daughter's birthday. Patient has one prior intubation for COPD in 2002. She was also hospitalized September 09 in [facility] for UTI and pneumonia for 9 days. She then went to rehab and was readmitted to [facility] for sepsis , UTI, pneumonia and was hospitalized for 2 weeks (on pressors for 3-4 days, not intubated). She was discharged to rehab and has now been home at her daughter's house since October 24, 2016. She was started on an unknown antibiotic and had taken one dose tonight. Her daughter states this was started in anticipation of urologic procedure by Dr. Gutierrez scheduled for later this week for intravesicular antibiotics. Patient has also had a cough x2 days. No fever. Her daughter states that she made a living will during a past hospitalization and said "she wanted everything done unless she had no hope of improving or if she was going to be a vegetable. 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 SUBJ 12/07: Remains intubated, not on sedation. epinephrine weaned off. Levophed at 5 mcg/min. Opens eyes to stimulation. Weakly follows commands. Family at bedside. Cardiac arrest possible not primary but secondary to severe walt pneumonia, sev sepsis and hypoxia 12/08: Awakens off sedation and follows commands. Remains orally intubated on mechanical ventilation. Hypotensive on Levophed 12 mics per minute. 12/09 - yesterday awake off all sedation follows commands. Currently not on tube feeds. No bowel movement. Tmax 99. 12/10: Extubated yesterday without complication. Failed swallow evaluation currently in 4 L nasal cannula satting 95%. Somewhat agitated right now. Subjective 12/11: Large mucous plug right mainstem noted on x-ray this AM. Currently at 15 L nonrebreather. Receiving some fentanyl for pain at the present time. Objective Vital Signs Date Time Temp Pulse Resp B/P Pulse Ox O2 Delivery O2 Flow Rate FiO2 12/11/16 08:35 95 Non-Rebreather 15.00 12/11/16 06:00 63 12/11/16 05:00 97.7 29 99/54 109/58 12/09/16 08:49 35 Intake and Output 12/10/16 12/10/16 12/11/16 08:00 16:00 00:00 Intake Total 781 ml 1447 ml 467 ml Output Total 200 ml 1150 ml 300 ml Balance 581 ml 297 ml 167 ml Result Diagram: 12/11/16 0250 12/11/16 0250 Other Results Microbiology Date/Time Procedure Status Source Growth 12/07/16 00:55 Urine Culture - Final Complete Urine Catheterized Urine NO GROWTH IN 48 HOURS. 12/07/16 00:40 Aerobic Blood Culture - Preliminary Resulted Blood Peripheral NO GROWTH IN 3 DAYS 12/07/16 00:40 Anaerobic Blood Culture - Preliminary Resulted Blood Peripheral NO GROWTH IN 3 DAYS 12/07/16 00:30 Aerobic Blood Culture - Final Resulted Blood Peripheral Staphylococcus Epidermidis 12/07/16 00:30 Anaerobic Blood Culture - Preliminary Resulted Blood Peripheral NO GROWTH IN 3 DAYS Imaging Last Impressions Chest X-Ray 12/11/16 0600 Signed Impressions: Service Date/Time: Sunday, December 11, 2016 04:42 - CONCLUSION: Collapse of the right lung new since previous study. Volume loss and now complete opacification of the right hemithorax Trevor Nieto MD Upper Extremity Ultrasound 12/09/16 0000 Signed Impressions: Service Date/Time: Friday, December 09, 2016 17:03 - CONCLUSION: Extensive venous thrombosis as above. Vishal Livingston MD Shoulder X-Ray 12/09/16 0000 Signed Impressions: Service Date/Time: Friday, December 09, 2016 15:35 - CONCLUSION: Postoperative and remote posttraumatic changes of the left proximal humerus. Vishal Livingston MD Head CT 12/07/16 0000 Signed Impressions: Service Date/Time: Wednesday, December 07, 2016 02:21 - CONCLUSION: Chronic and small vessel ischemic changes without any evidence for acute hemorrhage or mass effect. Maryellen Hobson MD CT Angiography 12/07/16 0000 Signed Impressions: Service Date/Time: Wednesday, December 07, 2016 02:27 - CONCLUSION: Bibasilar consolidation worse on the right. Maryellen Hobson MD Objective Remarks GENERAL: 86-year-old female, critically ill currently resting in bed in no acute distress on nonrebreather SKIN: Warm and dry. No rash HEAD: Atraumatic. Normocephalic. EYES: Pupils about 3 mm bilaterally and reactive. No scleral icterus. No injection or drainage. ENT: No nasal bleeding or discharge. Mucous membranes pink and moist. NECK: Trachea midline. No JVD. CARDIOVASCULAR: RRR. S1, S2 no S4. Without murmur RESPIRATORY: A few scattered fine crackles appreciated in bases bilaterally with diminished breath sounds no wheeze GASTROINTESTINAL: Abdomen soft, nontender, nondistended. Hypoactive bowel sounds appreciated MUSCULOSKELETAL: Extremities with trace bilateral lower extremity peripheral edema. Scar overlying medial aspect of right ankle without erythema or drainage. Noted edema in the left upper extremity 1-2+. 1+ edema in the right upper extremity NEUROLOGICAL: Cranial nerves II through grossly intact. Hard of hearing. Strength is equal and symmetric. Normal sensation A/P Assessment and Plan NEURO/PSYCH: Acute encephalopathy Hard of hearing - hearing aid left ear Dementia disorder not otherwise specified Depression 12/07 - CT brain revealed chronic and small vessel ischemic changes Patient previously on Namenda 20 mg daily and Aricept 10 mg daily for dementia Patient previously on bupropion 150 mg daily, BuSpar 2.5 mg daily and Mirabreq 25 mg daily for depression Fentanyl 50 mcg IV every hour/Dilaudid 0.5 mg every 4 hours as needed for pain management RESP: Acute respiratory failure COPD with 2 L home oxygen requirement. Follows Dr. Pratt Tobacco abuse Bronchiectasis Moderate bilateral pleural effusions Orotracheally intubated by [facility]. ET tube pulled back as it was in right mainstem bronchus. Currently on 15 L nonrebreather Currently on duo nebs every 6 hours without pedal every 2 hours as needed for breakthrough Hydrocortisone 100 mg IV every 8 hours started 12/08. Chest x-ray 12/06/16ET tube is at right mainstem. Opacification right lower lobe with complete, it right pleural effusion, tortuous appearing aorta CT pulmonary angiogram - No PE. Right lower lobe consolidation and bronchiectasis. LLL consolidation. Will receive 1 mg IV lead Bumex 1 now. Limited IV fluids. Recheck chest x- ray in a.m. Large mucous plug in right mainstem. CV: Cardiac arrest - reportedly presenting rhythm of Torsades/V tach per [facility]. Asystole in ED x2 Chronic systolic heart failure - ejection fraction 25% Elevated troponin Hypertension Patient had Torsades/Vtach per [facility] but no shockable rhythm in ED. Elevated troponin, cardiology consult noted Dr. Yancey. 12/07 echocardiogram LVEF 25%, hypokinesis of the mid distal, anteroseptal, anterior, anterior lateral and apical segments, moderate TR. Right atrium dilatation. CASEY 52 mmHg Off all vasopressors Stress dose steroids hydrocortisone 100 every 8. GI: Chronic aspiration Dysphagia Hiatal hernia Failed swallow evaluation Continue PPN at 50 cc an hour Patient is on Prilosec 20 mg daily at home. Currently Protonix 40 mg IV daily Colace/senna Senokot for bowel regimen to be held. We'll do glycerin suppositories for now Patient is on a modified diet (pured with thickened liquids) at home. FEN/RENAL: Acute kidney injury - resolved Hypermagnesemia (following Magnesium administration) Monitor intake and output, monitor electrolytes, replace electrolytes as indicated Received IV contrast 12/07. Avoid nephrotoxins. 40 mEq potassium chloride, 2 g mag sulfate IV 1. Recheck in a.m. ID: Acute aspiration pneumonia h/o recurrent UTI (uncertain MDRO history) Chest x-ray with right lower lobe infiltrate CTA chest with RLL consolidation and bronchiectasis. Empiric coverage with Zosyn, Vancomycin. Pertinent cultures Blood cultures 2 - 12/07 - no growth urine - 12/07 - no growth HEME: Leukocytosis Normocytic anemia Monitor CBC daily. Follow trends ENDO: Acute hyperglycemia Hypothyroidism Low-dose insulin sliding scale with bedside glucose every 6 hours Takes nature thyroid 32.4 mg daily Prophylaxis - GI - Protonix - DVT - SCD/heparin subcutaneous ACCESS: Right femoral central venous line placed by Dr. Ball 12/07 #5 left femoral art line placed 12/07 day #5 Critical Care: The total care time was 35 minutes. Time to perform other separately billable procedures was not included in the critical care time. Discuss with daughter. Eyes including reintubation with bronchoscopy removed right mainstem mucous plug with likely placement of bilateral chest tubes for underlying congestive heart failure or pulmonary effusions. She is a high risk for unable to extubate, recurrent aspiration if able to extubate with worsening renal function likely possibility in the future. Daughters discussing with brother. DNR status affirmed. Likely transition to hospice later this afternoon. Did discuss with Dr. Barros yesterday. Recommended palliative care Toño Vegrara MD December 11, 2016 08:54
[2016-12-11] MEDS ORDERED: BUMETANIDE INJ 1 MG/4 ML VIAL IV PUSH ONE (09:00)
[2016-12-11] MEDS ORDERED: POTASSIUM CHLOR 40 MEQ PREMIX 100 ML IV ONE (09:00)
[2016-12-11] MEDS: AZITHROMYCIN INJ 500 MG in SODIUM CHLOR 0.9% 250 ML INJ 250 ML IV SCH (09:00)
[2016-12-11] MEDS: DOCUSATE SODIUM 100 MG/10 ML UDC PO SCH (09:00)
[2016-12-11] MEDS: BUDESONIDE-FORMOTEROL 160/4.5 MCG INHALER INH SCH (09:00)
[2016-12-11] MEDS ORDERED: predniSONE 10 MG TAB PO SCH (09:00)
[2016-12-11] MEDS: PANTOPRAZOLE SODIUM 40 MG VIAL IV SCH (09:00)
[2016-12-11] MEDS: SODIUM CHLORIDE 0.9% FLUSH 10 ML FLUSH SCH ×2 (09:00→23:47)
[2016-12-11] MEDS: SENNOSIDES SYRUP 8.8 MG/5 ML CUP PO SCH (09:00)
[2016-12-11] MEDS ORDERED: PHARMACY ORDERED LAB ONE (11:45)
[2016-12-11] MEDS ORDERED: ACETAMINOPHEN 650 MG SUPP RECTAL PRN (12:00)
[2016-12-11] MEDS ORDERED: BISACODYL 10 MG SUPP RECTAL PRN (12:00)
--- NOTE | 2016-12-11 12:02 | HHI.HCPN ---
Reason for visit a. To assist with evaluation and management of symptoms including: dyspnea, dysphagia, pain. b. To assist medical decision maker(s) with: better understanding of current medical conditions; weighing benefits/burdens of medical treatment options; making medical treatment decisions. . (Linh Echavarria) Subjective/Interval History 86 year old female with recurrent aspiration PNA, CXR showing significant worsening of right lung infiltrate, now on a NRB mask. Family has carefully considered all options, i.e. chest tube, mechanical ventilation, PEG/NG and has decided to transition to comfort care with Hospice consult. Discussion was held with the daughter, son and niece at bedside and all questions answered at this time. Anticipatory guidance given, hospice role explained and family agrees with the decision for comfort care. Patient is resting comfortably with no s/s of distress, tachypnea or pain. She is receiving Fentanyl 50 mcg IV 4-5 times daily for symptom management. She is on no pressors. Medications will be adjusted by the Palliative care physician for PRN use for control of symptoms. . (Linh Echavarria) Advance Directives Living Will: Never completed Health Care Surrogate: Never completed Durable Power of Wellness Spa Manager: Never completed (Linh Echavarria) Advance Directive Specifics Health Care Surrogate(s): Patient is currently incapacitated to make her own decisions, uncertain if she regained capacity. According to [place] statutes, health care proxy decision- making would fall to the majority of adult children. Patient has one son and one daughter. . (Linh Echavarria) Objective Vital Signs Date Time Temp Pulse Resp B/P Pulse Ox O2 Delivery O2 Flow Rate FiO2 12/11/16 10:00 68 12/11/16 08:35 95 Non-Rebreather 15.00 12/11/16 08:00 97.6 74 22 92/57 95 107/58 12/11/16 08:00 93 Non-Rebreather 15.00 12/11/16 08:00 74 12/11/16 06:00 63 12/11/16 05:12 94 Non-Rebreather 15.00 12/11/16 05:00 97.7 76 29 99/54 89 109/58 12/11/16 04:00 72 12/11/16 04:00 72 26 91/54 93 97/53 5/26/17 03:59 18 12/11/16 03:00 68 40 97/52 97 107/56 12/11/16 02:00 68 37 112/61 99 12/11/16 02:00 68 12/11/16 01:00 75 27 104/61 99 127/72 12/11/16 00:00 66 12/11/16 00:00 97.0 66 29 92/51 98 91/46 12/10/16 23:00 67 21 96/54 92 99/55 12/10/16 22:00 99 Non-Rebreather 15.00 12/10/16 22:00 97.5 65 26 88/54 87 95/48 12/10/16 22:00 65 12/10/16 21:00 64 23 86/53 98 94/47 12/10/16 20:00 97.8 79 37 110/59 83 125/70 12/10/16 20:00 79 12/10/16 19:00 71 19 107/55 92 103/52 12/10/16 19:00 71 12/10/16 19:00 94 Nasal Cannula 4.00 12/10/16 18:00 82 12/10/16 18:00 82 22 102/60 84 123/69 12/10/16 17:00 71 12/10/16 17:00 71 19 91/54 93 92/48 12/10/16 16:00 97.9 66 21 100/58 97 103/55 12/10/16 16:00 66 12/10/16 15:01 74 37 106/60 91 109/63 12/10/16 15:01 74 12/10/16 15:00 71 37 106/61 96 12/10/16 15:00 71 12/10/16 14:00 94.4 67 18 94/64 93 87/47 12/10/16 14:00 67 12/10/16 13:00 65 12/10/16 13:00 65 28 89/52 93 89/47 12/10/16 12:00 66 12/10/16 12:00 66 29 98/62 94 95/51 Intake & Output 12/11/16 12/11/16 07:00 19:00 Intake Total 908 ml Output Total 450 ml Balance 458 ml IV Total 564 ml TPN/PPN 344 ml Output Urine Total 450 ml Physical Exam CONSTITUTIONAL/GENERAL: This is an elderly, frail appearing patient extubated on 100% NRB mask. TUBES/LINES/DRAINS: PIV right forearm, Victoria. SKIN: Ecchymoses on upper/ lower extremities and chest. Left forearm with erythema, swelling and tenderness. Skin tear left UE, dressing intact. Dressing to left norton. ENT: Hard of hearing, wearing hearing aids in left ear CARDIOVASCULAR: Systolic murmur noted, regular. RESPIRATORY/CHEST: Symmetric, unlabored respirations,minimal breath sounds on right, diminished on left. GASTROINTESTINAL: Abdomen soft, non-tender, nondistended. No guarding. Bowel sounds hypoactive. GENITOURINARY: Without palpable bladder distension. Victoria catheter in place. MUSCULOSKELETAL: Bilateral upper extremities with edema. No mottling or clubbing. NEUROLOGICAL: Arousable, dozing, opens eyes to stimulation. PSYCHIATRIC: no anxiety or agitation. . (Linh Echavarria) Diagnostic Tests Laboratory Laboratory Tests Test 12/08/16 12/09/16 12/09/16 12/10/16 13:18 06:15 17:55 00:13 Blood Gas Puncture Site ART LINE Blood Gas Patient Temperature 98.6 Blood Gas HCO3 22 mmol/L (22-26) Blood Gas Base Excess -2.5 mmol/L (-2-2) Blood Gas Oxygen Saturation 91 % (90-100) Arterial Blood pH 7.38 (7.380-7.420) Arterial Blood Partial 38 mmHg (38-42) Pressure CO2 Arterial Blood Partial 72 mmHg Pressure O2 (61-120) Arterial Blood Oxygen Content 14.3 Vol % (12.0-20.0) Arterial Blood 2.0 % (0-4) Carboxyhemoglobin Arterial Blood Methemoglobin 1.2 % (0-2) Blood Gas Hemoglobin 11.1 G/DL (12.0-16.0) Oxygen Delivery Device VENTILATOR Blood Gas Ventilator Setting CPAP 5/15PS Blood Gas Inspired Oxygen 45 % White Blood Count 15.6 TH/MM3 16.3 TH/MM3 (4.0-11.0) (4.0-11.0) Red Blood Count 4.07 MIL/MM3 3.80 MIL/MM3 (4.00-5.30) (4.00-5.30) Hemoglobin 10.5 GM/DL 10.1 GM/DL (11.6-15.3) (11.6-15.3) Hematocrit 34.4 % 31.9 % (35.0-46.0) (35.0-46.0) Mean Corpuscular Volume 84.5 FL 83.9 FL (80.0-100.0) (80.0-100.0) Mean Corpuscular Hemoglobin 25.9 PG 26.7 PG (27.0-34.0) (27.0-34.0) Mean Corpuscular Hemoglobin 30.7 % 31.8 % Concent (32.0-36.0) (32.0-36.0) Red Cell Distribution Width 17.0 % 16.9 % (11.6-17.2) (11.6-17.2) Platelet Count 131 TH/MM3 162 TH/MM3 (150-450) (150-450) Mean Platelet Volume 9.7 FL 10.2 FL (7.0-11.0) (7.0-11.0) Neutrophils (%) (Auto) 93.4 % (16.0-70.0) Lymphocytes (%) (Auto) 3.6 % (9.0-44.0) Monocytes (%) (Auto) 2.9 % (0.0-8.0) Eosinophils (%) (Auto) 0.0 % (0.0-4.0) Basophils (%) (Auto) 0.1 % (0.0-2.0) Neutrophils # (Auto) 14.6 TH/MM3 (1.8-7.7) Lymphocytes # (Auto) 0.6 TH/MM3 (1.0-4.8) Monocytes # (Auto) 0.5 TH/MM3 (0-0.9) Eosinophils # (Auto) 0.0 TH/MM3 (0-0.4) Basophils # (Auto) 0.0 TH/MM3 (0-0.2) CBC Comment DIFF FINAL Differential Comment Sodium Level 144 MEQ/L (136-145) Potassium Level 3.6 MEQ/L (3.5-5.1) Chloride Level 110 MEQ/L (98-107) Carbon Dioxide Level 25.1 MEQ/L (21.0-32.0) Anion Gap 9 MEQ/L (5-15) Blood Urea Nitrogen 19 MG/DL (7-18) Creatinine 0.83 MG/DL (0.50-1.00) Estimat Glomerular Filtration 65 ML/MIN (>89) Rate Random Glucose 183 MG/DL (74-106) Calcium Level 8.2 MG/DL (8.5-10.1) Total Bilirubin 0.8 MG/DL (0.2-1.0) Aspartate Amino Transf 20 U/L (15-37) (AST/SGOT) Alanine Aminotransferase 23 U/L (10-53) (ALT/SGPT) Alkaline Phosphatase 80 U/L (45-117) Total Protein 5.5 GM/DL (6.4-8.2) Albumin 2.0 GM/DL (3.4-5.0) Prothrombin Time 11.0 SEC (9.8-11.6) Prothromb Time International 1.0 RATIO Ratio Activated Partial 26.8 SEC 58.7 SEC Thromboplast Time (24.3-30.1) (24.3-30.1) Test 12/10/16 12/10/16 12/10/16 12/10/16 05:42 12:15 12:45 18:10 White Blood Count 15.1 TH/MM3 (4.0-11.0) Red Blood Count 3.90 MIL/MM3 (4.00-5.30) Hemoglobin 10.1 GM/DL (11.6-15.3) Hematocrit 32.5 % (35.0-46.0) Mean Corpuscular Volume 83.3 FL (80.0-100.0) Mean Corpuscular Hemoglobin 26.0 PG (27.0-34.0) Mean Corpuscular Hemoglobin 31.1 % Concent (32.0-36.0) Red Cell Distribution Width 17.1 % (11.6-17.2) Platelet Count 162 TH/MM3 (150-450) Mean Platelet Volume 9.5 FL (7.0-11.0) Neutrophils (%) (Auto) 92.7 % (16.0-70.0) Lymphocytes (%) (Auto) 3.3 % (9.0-44.0) Monocytes (%) (Auto) 3.7 % (0.0-8.0) Eosinophils (%) (Auto) 0.0 % (0.0-4.0) Basophils (%) (Auto) 0.3 % (0.0-2.0) Neutrophils # (Auto) 14.0 TH/MM3 (1.8-7.7) Lymphocytes # (Auto) 0.5 TH/MM3 (1.0-4.8) Monocytes # (Auto) 0.6 TH/MM3 (0-0.9) Eosinophils # (Auto) 0.0 TH/MM3 (0-0.4) Basophils # (Auto) 0.0 TH/MM3 (0-0.2) CBC Comment DIFF FINAL Differential Comment Activated Partial 79.0 SEC 62.4 SEC 61.7 SEC Thromboplast Time (24.3-30.1) (24.3-30.1) (24.3-30.1) Sodium Level 144 MEQ/L (136-145) Potassium Level 3.5 MEQ/L (3.5-5.1) Chloride Level 111 MEQ/L (98-107) Carbon Dioxide Level 23.5 MEQ/L (21.0-32.0) Anion Gap 10 MEQ/L (5-15) Blood Urea Nitrogen 23 MG/DL (7-18) Creatinine 0.65 MG/DL (0.50-1.00) Estimat Glomerular Filtration 86 ML/MIN (>89) Rate Random Glucose 208 MG/DL (74-106) Calcium Level 7.9 MG/DL (8.5-10.1) Phosphorus Level 2.3 MG/DL (2.5-4.9) Magnesium Level 2.3 MG/DL (1.5-2.5) Total Bilirubin 0.5 MG/DL (0.2-1.0) Aspartate Amino Transf 16 U/L (15-37) (AST/SGOT) Alanine Aminotransferase 20 U/L (10-53) (ALT/SGPT) Alkaline Phosphatase 72 U/L (45-117) Total Protein 5.3 GM/DL (6.4-8.2) Albumin 1.8 GM/DL (3.4-5.0) Troponin I 0.22 NG/ML (0.02-0.05) Test 12/10/16 12/10/16 12/11/16 19:47 22:07 02:50 Blood Gas Puncture Site ART LINE Blood Gas Patient Temperature 98.6 Blood Gas HCO3 24 mmol/L (22-26) Blood Gas Base Excess -1.6 mmol/L (-2-2) Blood Gas Oxygen Saturation 86 % (90-100) Arterial Blood pH 7.33 (7.380-7.420) Arterial Blood Partial 45 mmHg (38-42) Pressure CO2 Arterial Blood Partial 62 mmHg Pressure O2 (61-120) Arterial Blood Oxygen Content 12.1 Vol % (12.0-20.0) Arterial Blood 1.5 % (0-4) Carboxyhemoglobin Arterial Blood Methemoglobin 1.1 % (0-2) Blood Gas Hemoglobin 9.9 G/DL (12.0-16.0) Oxygen Delivery Device NASAL CANNULA Blood Gas Liter Flow 4 L/M Troponin I 0.17 NG/ML (0.02-0.05) White Blood Count 9.4 TH/MM3 (4.0-11.0) Red Blood Count 3.60 MIL/MM3 (4.00-5.30) Hemoglobin 9.6 GM/DL (11.6-15.3) Hematocrit 30.2 % (35.0-46.0) Mean Corpuscular Volume 83.9 FL (80.0-100.0) Mean Corpuscular Hemoglobin 26.6 PG (27.0-34.0) Mean Corpuscular Hemoglobin 31.7 % Concent (32.0-36.0) Red Cell Distribution Width 17.1 % (11.6-17.2) Platelet Count 140 TH/MM3 (150-450) Mean Platelet Volume 10.3 FL (7.0-11.0) Neutrophils (%) (Auto) 86.5 % (16.0-70.0) Lymphocytes (%) (Auto) 7.6 % (9.0-44.0) Monocytes (%) (Auto) 5.7 % (0.0-8.0) Eosinophils (%) (Auto) 0.1 % (0.0-4.0) Basophils (%) (Auto) 0.1 % (0.0-2.0) Neutrophils # (Auto) 8.2 TH/MM3 (1.8-7.7) Lymphocytes # (Auto) 0.7 TH/MM3 (1.0-4.8) Monocytes # (Auto) 0.5 TH/MM3 (0-0.9) Eosinophils # (Auto) 0.0 TH/MM3 (0-0.4) Basophils # (Auto) 0.0 TH/MM3 (0-0.2) CBC Comment DIFF FINAL Differential Comment Prothrombin Time 11.4 SEC (9.8-11.6) Prothromb Time International 1.0 RATIO Ratio Activated Partial 27.9 SEC Thromboplast Time (24.3-30.1) Sodium Level 149 MEQ/L (136-145) Potassium Level 3.2 MEQ/L (3.5-5.1) Chloride Level 114 MEQ/L (98-107) Carbon Dioxide Level 27.6 MEQ/L (21.0-32.0) Anion Gap 7 MEQ/L (5-15) Blood Urea Nitrogen 22 MG/DL (7-18) Creatinine 0.67 MG/DL (0.50-1.00) Estimat Glomerular Filtration 83 ML/MIN (>89) Rate Random Glucose 131 MG/DL (74-106) Calcium Level 7.8 MG/DL (8.5-10.1) Phosphorus Level 2.4 MG/DL (2.5-4.9) Magnesium Level 2.2 MG/DL (1.5-2.5) (Linh Echavarria) Result Diagram: 12/11/16 0250 12/11/16 0250 Microbiology Microbiology Date/Time Procedure Status Source Growth 12/07/16 00:55 Urine Culture - Final Complete Urine Catheterized Urine NO GROWTH IN 48 HOURS. 12/07/16 00:40 Aerobic Blood Culture - Preliminary Resulted Blood Peripheral NO GROWTH IN 4 DAYS 12/07/16 00:40 Anaerobic Blood Culture - Preliminary Resulted Blood Peripheral NO GROWTH IN 4 DAYS 12/07/16 00:30 Aerobic Blood Culture - Final Resulted Blood Peripheral Staphylococcus Epidermidis 12/07/16 00:30 Anaerobic Blood Culture - Preliminary Resulted Gram Positive Rods Imaging Last Impressions Chest X-Ray 12/11/16 0600 Signed Impressions: Service Date/Time: Sunday, December 11, 2016 04:42 - CONCLUSION: Collapse of the right lung new since previous study. Volume loss and now complete opacification of the right hemithorax Trevor Nieto MD Upper Extremity Ultrasound 12/09/16 0000 Signed Impressions: Service Date/Time: Friday, December 09, 2016 17:03 - CONCLUSION: Extensive venous thrombosis as above. Vishal Livingston MD Shoulder X-Ray 12/09/16 0000 Signed Impressions: Service Date/Time: Friday, December 09, 2016 15:35 - CONCLUSION: Postoperative and remote posttraumatic changes of the left proximal humerus. Vishal Livingston MD Head CT 12/07/16 0000 Signed Impressions: Service Date/Time: Wednesday, December 07, 2016 02:21 - CONCLUSION: Chronic and small vessel ischemic changes without any evidence for acute hemorrhage or mass effect. Maryellen Hobson MD CT Angiography 12/07/16 0000 Signed Impressions: Service Date/Time: Wednesday, December 07, 2016 02:27 - CONCLUSION: Bibasilar consolidation worse on the right. Maryellen Hobson MD Procedures * 12/08/16- extubation * 12/07/16 - left femoral arterial line placement * 12/06/16 - right triple lumen central line placement * 12/06/16 - Cardiac arrest x 3, Intubation . (Linh Echavarria) Assessment and Plan Disease Oriented Problem List: (1) Septic shock (2) Pneumonia (3) PEA (Pulseless electrical activity) (4) Bradycardia (5) COPD (chronic obstructive pulmonary disease) (6) Cardiopulmonary arrest with successful resuscitation (7) Lactic acidosis (8) Leukocytosis (9) DVT of axillary vein, acute left Symptom Scale: (1) Pain 0-10 Scale: Unable to quantify (2) Dyspnea 0-10 Scale: Unable to quantify (3) Weakness 0-10 Scale: Unable to quantify (4) Dysphagia Pertinent Non-Medical Issues Psychosocial: . Supported by son and daughter. Spiritual: [employer] josi, welcomes polymerization helper support. Legal: Patient is currently incapacitated to make her own decisions, uncertain if she regained capacity. According to [place] statutes, health care proxy decision-making would fall to the majority of adult children. Patient has one son and one daughter. Ethical issues impacting care: No known concerns at this time. . Important Contacts * Qian Vargas, daughter/ co-HCP: [phone] (cell) or [phone] (work ) * Jerad Santana, son/co-HCP: [phone] . Prognosis Ms. Santana is an 86 year old female with dementia, oxygen dependent COPD admitted post cardiac arrest with underlying cardiomyopathy and COPD/ resp failure and pneumonia. Given her advanced age, comorbidities, repeat hospitalizations for recurrent UTI, aspiration pneumonia and sepsis her overall prognosis is poor. . Code Status: Full Code Plan * Patient is currently incapacitated to make her own decisions, uncertain if she will regain capacity. She has underlying mild dementia. According to [place] statutes, health care proxy decision-making would fall to the majority of adult children. Patient has one son and one daughter, both (Qian and Jerad ) want to serve as health care proxy decision makers. They have decided to transition to comfort care. * DNR * Atomic Physics Teacher support requested. * Discussed with Dr. Vergara, Dr. Dewey, nurse Catie. SYMPTOMS: * Pain: on fentanyl, appears comfortable. Comfort meds to be added by Palliative Care physician pending Hospice consult. * Dyspnea: becomes slightly tachypneic with any stimulation. Benzodiazepine added. * Weakness: transition to comfort care. Palliative care will continue to follow throughout hospital course to assist with symptom management and clarification of goals as needed while transitioning to Hospice.. . (Linh Echavarria) Attestation To help prompt me to consider important information that might be impacting today's encounter and assessment, information from prior notes written by myself or my colleagues may have been "brought forward" into today's note. My signature on this note, however, is an attestation that I personally performed the exam, history, and/or decision-making noted today, and, unless otherwise indicated, the interactions with patient, family, and staff as well as the review of records all occurred today. I also attest that the listed assessment and stated plan reflect my best clinical judgment today based on the combination of historical information, prior notes, and today's exam/ interactions. When time spent is documented, it refers only to time spent today by the signer, or if indicated, combined time spent today by collaborating physician/nurse practitioner. (Linh Echavarria) Collaborating MD Comments . Chart reviewed. Case discussed with palliative care COMMUNITY SUPPORT SPECIALIST. Above COMMUNITY SUPPORT SPECIALIST note reviewed and I concur. . (Sea Dewey MD) Linh Echavarria December 11, 2016 12:01 Sea Dewey MD December 15, 2016 16:43
--- NOTE | 2016-12-11 12:32 | HHI.PR ---
Subjective Remarks She is awake and off the vent ., but had a large mucus plug in Right main stem bronchus.Now on a NRB mask CXR shows basal infiltrates .Has DVT in LUE Objective Vital Signs Date Time Temp Pulse Resp B/P Pulse Ox O2 Delivery O2 Flow Rate FiO2 12/11/16 10:00 68 12/11/16 08:35 95 Non-Rebreather 15.00 12/11/16 08:00 97.6 74 22 92/57 95 107/58 12/11/16 08:00 93 Non-Rebreather 15.00 12/11/16 08:00 74 12/11/16 06:00 63 12/11/16 05:12 94 Non-Rebreather 15.00 12/11/16 05:00 97.7 76 29 99/54 89 109/58 12/11/16 04:00 72 12/11/16 04:00 72 26 91/54 93 97/53 12/11/16 03:59 18 12/11/16 03:00 68 40 97/52 97 107/56 12/11/16 02:00 68 37 112/61 99 12/11/16 02:00 68 12/11/16 01:00 75 27 104/61 99 127/72 12/11/16 00:00 66 12/11/16 00:00 97.0 66 29 92/51 98 91/46 12/10/16 23:00 67 21 96/54 92 99/55 12/10/16 22:00 99 Non-Rebreather 15.00 12/10/16 22:00 97.5 65 26 88/54 87 95/48 12/10/16 22:00 65 12/10/16 21:00 64 23 86/53 98 94/47 12/10/16 20:00 97.8 79 37 110/59 83 125/70 12/10/16 20:00 79 12/10/16 19:00 71 19 107/55 92 103/52 12/10/16 19:00 71 12/10/16 19:00 94 Nasal Cannula 4.00 12/10/16 18:00 82 12/10/16 18:00 82 22 102/60 84 123/69 12/10/16 17:00 71 12/10/16 17:00 71 19 91/54 93 92/48 12/10/16 16:00 97.9 66 21 100/58 97 103/55 12/10/16 16:00 66 12/10/16 15:01 74 37 106/60 91 109/63 12/10/16 15:01 74 12/10/16 15:00 71 37 106/61 96 12/10/16 15:00 71 12/10/16 14:00 94.4 67 18 94/64 93 87/47 12/10/16 14:00 67 12/10/16 13:00 65 12/10/16 13:00 65 28 89/52 93 89/47 I/O 12/10/16 12/10/16 12/10/16 12/11/16 12/11/16 12/11/16 07:00 15:00 23:00 07:00 15:00 23:00 Intake Total 781 ml 1447 ml 467 ml 441 ml Output Total 200 ml 1150 ml 300 ml 150 ml Balance 581 ml 297 ml 167 ml 291 ml IV Total 781 ml 1447 ml 377 ml 187 ml TPN/PPN 90 ml 254 ml Output Urine Total 200 ml 1150 ml 300 ml 150 ml Stool Total 0 ml Result Diagram: 12/11/16 0250 12/11/16 0250 Objective Remarks This is an elderly thinly built white female alert anxious. HEENT: Head normocephalic. Pupils are reactive. Tongue moist. Throat is clear. NECK: Supple. No lymphadenopathy. CHEST: Distant breath sounds with expiratory wheezes and occasional crackles and wheeze scattered HEART: The heart sounds are irregular. S1 and S2. ABDOMEN: Soft and benign. Bowel sounds are active.No mass EXT No edema. Moves all well. Reflexes 1 + Assessment and Plan Assessment and Plan IMPRESSION 1. COPD with acute exacerbation 2. Basilar pneumonia 3. Anxiety 4. Acute respiratory failure 5. Aspiration pneumonia 6. Severe COPD with emphysema 7. Dementia 8. History of atrial fibrillation 9. Status post cardiac arrest. Plan : 1. Leave on NRB mask 100 % FIO2 2. Diuretic daily. 3. Continue antibiotics.Anticoagulants 4. Nebs qid , duoneb. 5. D/W Family poor prognosis 6. Will get hospice to see 7. Comfort care per Family. Guillermo Pratt MD December 11, 2016 12:32
--- NOTE | 2016-12-11 13:17 | PD.CARD.PN ---
Subjective Subjective Remarks Confused, comfortable, no CP or SOB Objective Medications Current Medications Medications (Trade) Dose Ordered Sig/[place] Route Start Time Stop Time Status Last Admin (Peridex 0.12% Liq) 15 ml BID@08,20 MT 12/07/16 08:00 12/11/16 08:00 (NS Flush) 2 ml UNSCH PRN .XX 12/07/16 01:30 12/07/16 20:45 (NS Flush) 2 ml BID .XX 12/07/16 09:00 12/11/16 09:00 (Tylenol) 650 mg Q6H PRN PO 12/07/16 01:30 12/08/16 16:12 Miscellaneous Information 1 Q361D XX 12/07/16 01:30 12/07/16 03:00 (Chlorhexidine 2% Cloth) 3 pack Taper DAILY@04 TOP 12/07/16 04:00 12/03/17 03:59 12/10/16 22:13 (Chlorhexidine 2% Cloth) 3 pack UNSCH PRN TOP 12/07/16 01:30 (Dilaudid Pf Inj) 0.5 mg Q2H PRN IV PUSH 12/11/16 14:00 (Dilaudid Pf Inj) 0.25 mg Q2H PRN IV PUSH 12/11/16 12:00 (Tylenol Supp) 650 mg Q4H PRN RECTAL 12/11/16 12:00 (Dulcolax Supp) 10 mg DAILY PRN RECTAL 12/11/16 12:00 (Decadron Inj) 4 mg DAILY IV PUSH 12/12/16 09:00 (Ativan Inj) 1 mg Q2H PRN IV PUSH 12/11/16 12:00 (Ativan Inj) 1.5 mg Q2H PRN IV PUSH 12/11/16 12:00 (Lasix Inj) 40 mg Q8HR PRN IV PUSH 12/11/16 12:00 Vital Signs / I&O Vital Signs Date Time Temp Pulse Resp B/P Pulse Ox O2 Delivery O2 Flow Rate FiO2 12/11/16 10:00 68 12/11/16 08:35 95 Non-Rebreather 15.00 12/11/16 08:00 97.6 74 22 92/57 95 107/58 12/11/16 08:00 93 Non-Rebreather 15.00 12/11/16 08:00 74 12/11/16 06:00 63 12/11/16 05:12 94 Non-Rebreather 15.00 12/11/16 05:00 97.7 76 29 99/54 89 109/58 12/11/16 04:00 72 12/11/16 04:00 72 26 91/54 93 97/53 12/11/16 03:59 18 12/11/16 03:00 68 40 97/52 97 107/56 12/11/16 02:00 68 37 112/61 99 12/11/16 02:00 68 12/11/16 01:00 75 27 104/61 99 127/72 12/11/16 00:00 66 12/11/16 00:00 97.0 66 29 92/51 98 91/46 12/10/16 23:00 67 21 96/54 92 99/55 12/10/16 22:00 99 Non-Rebreather 15.00 12/10/16 22:00 97.5 65 26 88/54 87 95/48 12/10/16 22:00 65 12/10/16 21:00 64 23 86/53 98 94/47 12/10/16 20:00 97.8 79 37 110/59 83 125/70 12/10/16 20:00 79 12/10/16 19:00 71 19 107/55 92 103/52 12/10/16 19:00 71 12/10/16 19:00 94 Nasal Cannula 4.00 12/10/16 18:00 82 12/10/16 18:00 82 22 102/60 84 123/69 12/10/16 17:00 71 12/10/16 17:00 71 19 91/54 93 92/48 12/10/16 16:00 97.9 66 21 100/58 97 103/55 12/10/16 16:00 66 12/10/16 15:01 74 37 106/60 91 109/63 12/10/16 15:01 74 12/10/16 15:00 71 37 106/61 96 12/10/16 15:00 71 12/10/16 14:00 94.4 67 18 94/64 93 87/47 12/10/16 14:00 67 I/O 12/10/16 12/10/16 12/10/16 12/11/16/26/17 5/26/17 07:00 15:00 23:00 07:00 15:00 23:00 Intake Total 781 ml 1447 ml 467 ml 441 ml Output Total 200 ml 1150 ml 300 ml 150 ml Balance 581 ml 297 ml 167 ml 291 ml IV Total 781 ml 1447 ml 377 ml 187 ml TPN/PPN 90 ml 254 ml Output Urine Total 200 ml 1150 ml 300 ml 150 ml Stool Total 0 ml Physical Exam GENERAL: In NAD SKIN: Warm and dry. HEAD: Normocephalic. EYES: No scleral icterus. No injection or drainage. NECK: Supple, trachea midline. No JVD or lymphadenopathy. CARDIOVASCULAR: Regular rate and rhythm without murmurs, gallops, or rubs. RESPIRATORY: Breath sounds equal bilaterally. No accessory muscle use. GASTROINTESTINAL: Abdomen soft, non-tender, nondistended. MUSCULOSKELETAL: No cyanosis, or edema. Laboratory Laboratory Tests Test 12/10/16 12/10/16 12/10/16 12/11/16 18:10 19:47 22:07 02:50 Activated Partial 61.7 SEC 27.9 SEC Thromboplast Time Blood Gas Puncture Site ART LINE Blood Gas Patient Temperature 98.6 Blood Gas HCO3 24 mmol/L Blood Gas Base Excess -1.6 mmol/L Blood Gas Oxygen Saturation 86 % Arterial Blood pH 7.33 Arterial Blood Partial 45 mmHg Pressure CO2 Arterial Blood Partial 62 mmHg Pressure O2 Arterial Blood Oxygen Content 12.1 Vol % Arterial Blood 1.5 % Carboxyhemoglobin Arterial Blood Methemoglobin 1.1 % Blood Gas Hemoglobin 9.9 G/DL Oxygen Delivery Device NASAL CANNULA Blood Gas Liter Flow 4 L/M Troponin I 0.17 NG/ML White Blood Count 9.4 TH/MM3 Red Blood Count 3.60 MIL/MM3 Hemoglobin 9.6 GM/DL Hematocrit 30.2 % Mean Corpuscular Volume 83.9 FL Mean Corpuscular Hemoglobin 26.6 PG Mean Corpuscular Hemoglobin 31.7 % Concent Red Cell Distribution Width 17.1 % Platelet Count 140 TH/MM3 Mean Platelet Volume 10.3 FL Neutrophils (%) (Auto) 86.5 % Lymphocytes (%) (Auto) 7.6 % Monocytes (%) (Auto) 5.7 % Eosinophils (%) (Auto) 0.1 % Basophils (%) (Auto) 0.1 % Neutrophils # (Auto) 8.2 TH/MM3 Lymphocytes # (Auto) 0.7 TH/MM3 Monocytes # (Auto) 0.5 TH/MM3 Eosinophils # (Auto) 0.0 TH/MM3 Basophils # (Auto) 0.0 TH/MM3 CBC Comment DIFF FINAL Differential Comment Prothrombin Time 11.4 SEC Prothromb Time International 1.0 RATIO Ratio Sodium Level 149 MEQ/L Potassium Level 3.2 MEQ/L Chloride Level 114 MEQ/L Carbon Dioxide Level 27.6 MEQ/L Anion Gap 7 MEQ/L Blood Urea Nitrogen 22 MG/DL Creatinine 0.67 MG/DL Estimat Glomerular Filtration 83 ML/MIN Rate Random Glucose 131 MG/DL Calcium Level 7.8 MG/DL Phosphorus Level 2.4 MG/DL Magnesium Level 2.2 MG/DL Imaging Last Impressions Chest X-Ray 12/11/16 0600 Signed Impressions: Service Date/Time: Sunday, December 11, 2016 04:42 - CONCLUSION: Collapse of the right lung new since previous study. Volume loss and now complete opacification of the right hemithorax Trevor Nieto MD Upper Extremity Ultrasound 12/09/16 0000 Signed Impressions: Service Date/Time: Friday, December 09, 2016 17:03 - CONCLUSION: Extensive venous thrombosis as above. Vishal Livingston MD Shoulder X-Ray 12/09/16 0000 Signed Impressions: Service Date/Time: Friday, December 09, 2016 15:35 - CONCLUSION: Postoperative and remote posttraumatic changes of the left proximal humerus. Vishal Livingston MD Head CT 12/07/16 0000 Signed Impressions: Service Date/Time: Wednesday, December 07, 2016 02:21 - CONCLUSION: Chronic and small vessel ischemic changes without any evidence for acute hemorrhage or mass effect. Maryellen Hobson MD CT Angiography 12/07/16 0000 Signed Impressions: Service Date/Time: Wednesday, December 07, 2016 02:27 - CONCLUSION: Bibasilar consolidation worse on the right. Maryellen Hobson MD Assessment and Plan Problem List: (1) Cardiopulmonary arrest with successful resuscitation (2) PEA (Pulseless electrical activity) (3) Septic shock (4) COPD (chronic obstructive pulmonary disease) (5) Pneumonia Assessment and Plan Confused, but relatively stable. Stays off pressors. Rhythm stable. Continue tx for septic shock. Prognosis still guarded but continuing progress achieved. D/w pt's family, palliative care involved. Hospice consult today. Imer Yancey MD December 11, 2016 13:17
[2016-12-11] MEDS: HYDROmorphone HCL PF 1 MG/ML VIAL IV PUSH PRN ×3 (13:20→23:47)
--- NOTE | 2016-12-11 14:28 | EKG ---
Date Performed: 12/10/2016 Time Performed: 12:22:31 PTAGE: 86 years EKG: Sinus rhythm LEFT BUNDLE BRANCH BLOCK ABNORMAL ECG Compared to prior tracing no significant change PREVIOUS TRACING : 12/07/2016 18.56 DOCTOR: Edi Ferrara Interpretating Date/Time 12/11/2016 14:23:17
[2016-12-11] MEDS: LORazepam 2 MG/ML VIAL IV PUSH PRN (14:30)
[2016-12-11] MEDS: CHLORHEXIDINE GLUCONATE 2 % 1 PACK (2 CLOTHS) TOP SCH (23:48)
[2016-12-12] VITALS (13 sets, daily range): BP systolic 78–112; BP diastolic 56–86; PULSE 62–80; RESP 23–33; TEMP 96.9–97.9; O2SAT 92–95
[2016-12-12] MEDS: HYDROmorphone HCL PF 1 MG/ML VIAL IV PUSH PRN ×4 (05:47→22:00)
[2016-12-12] MEDS: DEXAMETHASONE SOD PHOS 4 MG/ML VIAL IV PUSH SCH (09:34)
[2016-12-12] MEDS: LORazepam 2 MG/ML VIAL IV PUSH PRN ×3 (09:35→22:00)
[2016-12-12] MEDS: SODIUM CHLORIDE 0.9% FLUSH 10 ML FLUSH SCH ×2 (09:36→22:01)
--- NOTE | 2016-12-12 12:19 | HHI.CCPN ---
Subjective Remarks/Hospital Course 86 yo WF with PMH of COPD on 2 L home O2, CHF who is brought in by [facility] after initial call for lethargy. [facility] reported that she was in Torsades. They started to administer magnesium sulfate and administered partial dose when the IV blew. She was the shocked for Vtach. She was intubated after receiving Ativan 4 mg IV and etomidate 20 mg IV. She was then noted to be in asystole. She was given epinephrine and had ROSC. EKG upon arrival to the emergency department demonstrated an irregular rhythm that appears to be slow A. fib. Due to concern LBBB a STEMI alert was called. Patient subsequently had a recurrent cardiac arrest where she had bradycardia followed by asystole at 23: 25 for 10 minutes (received Epi x2, bicarb x1 amp, calcium carbonate x1) and then another code at 23:48 for 4 minutes (received epi x3, sodium bicarb x2 amps). Dr. Ball discussed with Dr. Hawley and he cancelled STEMI alert. Patient remains hypotensive post-arrest and is currently on Epinephrine drip and Dr. Ball has placed a R femoral central line. Her daughter states that yesterday patient was complaining of bilateral calf pain (new complaint) and took some Tramadol. Today she was getting ready for bed and ambulating with a walker but was not standing up completely straight and her daughter states "I knew something was wrong". She states that her fingers were cool and that she increased O2 from 2 L to 4L because O2 sat was not picking up. Daughter was urging her to go to the hospital. She then began "staring off" with "eyes flickering" so her daughter called 911. Her daughter states she was speaking with the patient during this time and patient was able to verbally respond saying "I am tired". Of note, patient has had recurrent hospitalizations for UTI and aspiration and has been on a pureed diet with thickened liquids however tonight she did eat some birthday cake for her daughter's birthday. Patient has one prior intubation for COPD in 2002. She was also hospitalized September 09 in [facility] for UTI and pneumonia for 9 days. She then went to rehab and was readmitted to [facility] for sepsis , UTI, pneumonia and was hospitalized for 2 weeks (on pressors for 3-4 days, not intubated). She was discharged to rehab and has now been home at her daughter's house since October 24, 2016. She was started on an unknown antibiotic and had taken one dose tonight. Her daughter states this was started in anticipation of urologic procedure by Dr. Gutierrez scheduled for later this week for intravesicular antibiotics. Patient has also had a cough x2 days. No fever. Her daughter states that she made a living will during a past hospitalization and said "she wanted everything done unless she had no hope of improving or if she was going to be a vegetable. 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 SUBJ 12/07: Remains intubated, not on sedation. epinephrine weaned off. Levophed at 5 mcg/min. Opens eyes to stimulation. Weakly follows commands. Family at bedside. Cardiac arrest possible not primary but secondary to severe walt pneumonia, sev sepsis and hypoxia 12/08: Awakens off sedation and follows commands. Remains orally intubated on mechanical ventilation. Hypotensive on Levophed 12 mics per minute. 12/09 - yesterday awake off all sedation follows commands. Currently not on tube feeds. No bowel movement. Tmax 99. 12/10: Extubated yesterday without complication. Failed swallow evaluation currently in 4 L nasal cannula satting 95%. Somewhat agitated right now. 12/11: Large mucous plug right mainstem noted on x-ray this AM. Currently at 15 L nonrebreather. Receiving some fentanyl for pain at the present time. Subjective 12/12: Patient currently on hospice. On 100% nonrebreather satting 91%. Left arm less swollen today. Received fentanyl and Dilaudid for pain management overnight. Minimally responsive Objective Vital Signs Date Time Temp Pulse Resp B/P Pulse Ox O2 Delivery O2 Flow Rate FiO2 12/12/16 08:00 75 12/12/16 07:00 Non-Rebreather 15.00 100 12/12/16 04:00 97.5 29 112/56 92 Intake and Output 12/11/16 12/11/16 12/12/16 08:00 16:00 00:00 Intake Total 441 ml 600 ml Output Total 150 ml 1000 ml 1500 ml Balance 291 ml -400 ml -1500 ml Result Diagram: 12/11/16 0250 12/11/16 0250 Other Results Last Impressions Chest X-Ray 12/11/16 0600 Signed Impressions: Service Date/Time: Sunday, December 11, 2016 04:42 - CONCLUSION: Collapse of the right lung new since previous study. Volume loss and now complete opacification of the right hemithorax Trevor Nieto MD Upper Extremity Ultrasound 12/09/16 0000 Signed Impressions: Service Date/Time: Friday, December 09, 2016 17:03 - CONCLUSION: Extensive venous thrombosis as above. Vishal Livingston MD Shoulder X-Ray 12/09/16 Signed Impressions: Service Date/Time: Friday, December 09, 2016 15:35 - CONCLUSION: Postoperative and remote posttraumatic changes of the left proximal humerus. Vishal Livingston MD Head CT 12/07/16 Signed Impressions: Service Date/Time: Wednesday, December 07, 2016 02:21 - CONCLUSION: Chronic and small vessel ischemic changes without any evidence for acute hemorrhage or mass effect. Maryellen Hobson MD CT Angiography 12/07/16 Signed Impressions: Service Date/Time: Wednesday, December 07, 2016 02:27 - CONCLUSION: Bibasilar consolidation worse on the right. Maryellen Hobson MD Imaging Last Impressions Chest X-Ray 12/11/16 0600 Signed Impressions: Service Date/Time: Sunday, December 11, 2016 04:42 - CONCLUSION: Collapse of the right lung new since previous study. Volume loss and now complete opacification of the right hemithorax Trevor Nieto MD Upper Extremity Ultrasound 12/09/16 Signed Impressions: Service Date/Time: Friday, December 09, 2016 17:03 - CONCLUSION: Extensive venous thrombosis as above. Vishal Livingston MD Shoulder X-Ray 12/09/16 Signed Impressions: Service Date/Time: Friday, December 09, 2016 15:35 - CONCLUSION: Postoperative and remote posttraumatic changes of the left proximal humerus. Vishal Livingston MD Head CT 12/07/16 Signed Impressions: Service Date/Time: Wednesday, December 07, 2016 02:21 - CONCLUSION: Chronic and small vessel ischemic changes without any evidence for acute hemorrhage or mass effect. Maryellen Hobson MD CT Angiography 12/07/16 0000 Signed Impressions: Service Date/Time: Wednesday, December 07, 2016 02:27 - CONCLUSION: Bibasilar consolidation worse on the right. Maryellen Hobson MD Objective Remarks GENERAL: 86-year-old female, critically ill currently resting in bed in no acute distress on nonrebreather SKIN: Warm and dry. No rash HEAD: Atraumatic. Normocephalic. EYES: Pupils about 3 mm bilaterally and reactive. No scleral icterus. No injection or drainage. ENT: No nasal bleeding or discharge. Mucous membranes pink and moist. NECK: Trachea midline. No JVD. CARDIOVASCULAR: RRR. S1, S2 no S4. Without murmur RESPIRATORY: Significant diminished breath sounds right lung field. Few crackles appreciated in left lower lobe GASTROINTESTINAL: Abdomen soft, nontender, nondistended. Hypoactive bowel sounds appreciated MUSCULOSKELETAL: Extremities with trace bilateral lower extremity peripheral edema. Scar overlying medial aspect of right ankle without erythema or drainage. Noted edema in the left upper extremity and now right upper extremity 1+ NEUROLOGICAL: Cranial nerves II through grossly intact. Hard of hearing. Currently minimal withdrawal to pain bilateral upper lobe extremity. A/P Assessment and Plan NEURO/PSYCH: Acute encephalopathy Hard of hearing - hearing aid left ear Dementia disorder not otherwise specified Depression 12/07 - CT brain revealed chronic and small vessel ischemic changes Patient previously on Namenda 20 mg daily and Aricept 10 mg daily for dementia Patient previously on bupropion 150 mg daily, BuSpar 2.5 mg daily and Mirabreq 25 mg daily for depression Currently on Dilaudid 0.25-0.5 mg every 2 hours when necessary pain management On Ativan 1-1.5 mg every 2 hours when necessary anxiety On Decadron 4 mg IV daily Goals of care comfort RESP: Acute respiratory failure COPD with 2 L home oxygen requirement. Follows Dr. Pratt Tobacco abuse Bronchiectasis Moderate bilateral pleural effusions Orotracheally intubated by [facility]. ET tube pulled back as it was in right mainstem bronchus. Currently on 15 L nonrebreather for comfort Chest x-ray 12/06/16ET tube is at right mainstem. Opacification right lower lobe with complete, it right pleural effusion, tortuous appearing aorta CT pulmonary angiogram - No PE. Right lower lobe consolidation and bronchiectasis. LLL consolidation. Large mucous plug in right mainstem. On x-ray 12/11 CV: Cardiac arrest - reportedly presenting rhythm of Torsades/V tach per [facility]. Asystole in ED x2 Chronic systolic heart failure - ejection fraction 25% Elevated troponin Hypertension Patient had Torsades/Vtach per [facility] but no shockable rhythm in ED. Elevated troponin, cardiology consult noted Dr. Yancey. 12/07 echocardiogram LVEF 25%, hypokinesis of the mid distal, anteroseptal, anterior, anterior lateral and apical segments, moderate TR. Right atrium dilatation. CASEY 52 mmHg Off all vasopressors Currently in Decadron 4 mg daily with as needed Lasix 40 mg every 8 hours for pulmonary congestion GI: Chronic aspiration Dysphagia Hiatal hernia Colace/senna Senokot for bowel regimen to be held Patient is on a modified diet (pured with thickened liquids) at home. FEN/RENAL: Acute kidney injury - resolved Hypermagnesemia (following Magnesium administration) Monitor intake and output, monitor electrolytes, replace electrolytes as indicated Received IV contrast 12/07. Avoid nephrotoxins. ID: Acute aspiration pneumonia h/o recurrent UTI (uncertain MDRO history) Chest x-ray with right lower lobe infiltrate CTA chest with RLL consolidation and bronchiectasis. Empiric coverage with Zosyn, Vancomycin discontinued as currently comfort care Pertinent cultures Blood cultures 2 - 12/07 - no growth urine - 12/07 - no growth HEME: Leukocytosis Normocytic anemia Continue daily CBC ENDO: Acute hyperglycemia Hypothyroidism Low-dose insulin sliding scale with bedside glucose every 6 hours discontinued Takes nature thyroid 32.4 mg daily Prophylaxis - GI - Protonix discontinued - DVT -needed ACCESS: Right femoral central venous line placed by Dr. Ball 12/07 #6 left femoral art line placed 12/07 day #6 Critical Care: The total care time was 35 minutes. Time to perform other separately billable procedures was not included in the critical care time. Discuss with daughter. Toño Vergara MD December 12, 2016 12:19 The total care time was 35 minutes. Time to perform other separately billable procedures was not included in the critical care time. Discuss with daughter. Eyes including reintubation with bronchoscopy removed right mainstem mucous plug with likely placement of bilateral chest tubes for underlying congestive heart failure or pulmonary effusions. She is a high risk for unable to extubate, recurrent aspiration if able to extubate with worsening renal function likely possibility in the future. Daughters discussing with brother. DNR status affirmed. Likely transition to hospice later this afternoon. Did discuss with Dr. Barros yesterday. Recommended palliative care Toño Vergara MD December 12, 2016 12:19
[2016-12-12] MEDS: FUROSEMIDE 40 MG/4 ML VIAL IV PUSH PRN ×2 (14:12→22:00)
[2016-12-12] MEDS: CHLORHEXIDINE 0.12% (ORAL KIT) 15 ML CUP MT SCH (20:00)
[2016-12-13] VITALS (13 sets, daily range): BP systolic 82–102; BP diastolic 52–89; PULSE 69–86; RESP 19–31; TEMP 97.3–98; O2SAT 89–95
[2016-12-13] MEDS: HYDROmorphone HCL PF 1 MG/ML VIAL IV PUSH PRN ×9 (00:01→23:35)
[2016-12-13] MEDS: LORazepam 2 MG/ML VIAL IV PUSH PRN ×9 (00:02→23:35)
[2016-12-13] MEDS: CHLORHEXIDINE GLUCONATE 2 % 1 PACK (2 CLOTHS) TOP SCH (04:00)
[2016-12-13] MEDS: FUROSEMIDE 40 MG/4 ML VIAL IV PUSH PRN ×2 (06:37→19:40)
[2016-12-13] MEDS: DEXAMETHASONE SOD PHOS 4 MG/ML VIAL IV PUSH SCH (09:37)
[2016-12-13] MEDS: SODIUM CHLORIDE 0.9% FLUSH 10 ML FLUSH SCH ×2 (09:37→19:33)
--- NOTE | 2016-12-13 16:10 | HHI.CCPN ---
Subjective Remarks/Hospital Course 86 yo WF with PMH of COPD on 2 L home O2, CHF who is brought in by [facility] after initial call for lethargy. [facility] reported that she was in Torsades. They started to administer magnesium sulfate and administered partial dose when the IV blew. She was the shocked for Vtach. She was intubated after receiving Ativan 4 mg IV and etomidate 20 mg IV. She was then noted to be in asystole. She was given epinephrine and had ROSC. EKG upon arrival to the emergency department demonstrated an irregular rhythm that appears to be slow A. fib. Due to concern LBBB a STEMI alert was called. Patient subsequently had a recurrent cardiac arrest where she had bradycardia followed by asystole at 23: 25 for 10 minutes (received Epi x2, bicarb x1 amp, calcium carbonate x1) and then another code at 23:48 for 4 minutes (received epi x3, sodium bicarb x2 amps). Dr. Ball discussed with Dr. Hawley and he cancelled STEMI alert. Patient remains hypotensive post-arrest and is currently on Epinephrine drip and Dr. Ball has placed a R femoral central line. Her daughter states that yesterday patient was complaining of bilateral calf pain (new complaint) and took some Tramadol. Today she was getting ready for bed and ambulating with a walker but was not standing up completely straight and her daughter states "I knew something was wrong". She states that her fingers were cool and that she increased O2 from 2 L to 4L because O2 sat was not picking up. Daughter was urging her to go to the hospital. She then began "staring off" with "eyes flickering" so her daughter called 911. Her daughter states she was speaking with the patient during this time and patient was able to verbally respond saying "I am tired". Of note, patient has had recurrent hospitalizations for UTI and aspiration and has been on a pureed diet with thickened liquids however tonight she did eat some birthday cake for her daughter's birthday. Patient has one prior intubation for COPD in 2002. She was also hospitalized September 09 in [facility] for UTI and pneumonia for 9 days. She then went to rehab and was readmitted to [facility] for sepsis , UTI, pneumonia and was hospitalized for 2 weeks (on pressors for 3-4 days, not intubated). She was discharged to rehab and has now been home at her daughter's house since October 24, 2016. She was started on an unknown antibiotic and had taken one dose tonight. Her daughter states this was started in anticipation of urologic procedure by Dr. Gutierrez scheduled for later this week for intravesicular antibiotics. Patient has also had a cough x2 days. No fever. Her daughter states that she made a living will during a past hospitalization and said "she wanted everything done unless she had no hope of improving or if she was going to be a vegetable. 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 SUBJ 12/07: Remains intubated, not on sedation. epinephrine weaned off. Levophed at 5 mcg/min. Opens eyes to stimulation. Weakly follows commands. Family at bedside. Cardiac arrest possible not primary but secondary to severe walt pneumonia, sev sepsis and hypoxia 12/08: Awakens off sedation and follows commands. Remains orally intubated on mechanical ventilation. Hypotensive on Levophed 12 mics per minute. 12/09 - yesterday awake off all sedation follows commands. Currently not on tube feeds. No bowel movement. Tmax 99. 12/10: Extubated yesterday without complication. Failed swallow evaluation currently in 4 L nasal cannula satting 95%. Somewhat agitated right now. 12/11: Large mucous plug right mainstem noted on x-ray this AM. Currently at 15 L nonrebreather. Receiving some fentanyl for pain at the present time. 12/12: Patient currently on hospice. On 100% nonrebreather satting 91%. Left arm less swollen today. Received fentanyl and Dilaudid for pain management overnight. Minimally responsive Subjective 12/13: DTs to be on our service for hospice per family request. Continues on 100 % nonrebreather. Minimally responsive. Objective Vital Signs Date Time Temp Pulse Resp B/P Pulse Ox O2 Delivery O2 Flow Rate FiO2 12/13/16 14:00 80 12/13/16 12:00 97.3 23 83/68 95 12/13/16 07:00 Non-Rebreather 15.00 95 Intake and Output 12/12/16 12/12/16 12/13/16 08:00 16:00 00:00 Intake Total 0 ml Output Total 300 ml 150 ml 1000 ml Balance -300 ml -150 ml -1000 ml Result Diagram: 12/11/16 0250 12/11/16 0250 Imaging Last Impressions Chest X-Ray 12/11/16 0600 Signed Impressions: Service Date/Time: Sunday, December 11, 2016 04:42 - CONCLUSION: Collapse of the right lung new since previous study. Volume loss and now complete opacification of the right hemithorax Trevor Nieto MD Upper Extremity Ultrasound 12/09/16 0000 Signed Impressions: Service Date/Time: Friday, December 09, 2016 17:03 - CONCLUSION: Extensive venous thrombosis as above. Vishal Livingston MD Shoulder X-Ray 12/09/16 0000 Signed Impressions: Service Date/Time: Friday, December 09, 2016 15:35 - CONCLUSION: Postoperative and remote posttraumatic changes of the left proximal humerus. Vishal Livingston MD Head CT 12/07/16 0000 Signed Impressions: Service Date/Time: Wednesday, December 07, 2016 02:21 - CONCLUSION: Chronic and small vessel ischemic changes without any evidence for acute hemorrhage or mass effect. Maryellen Hobson MD CT Angiography 12/07/16 0000 Signed Impressions: Service Date/Time: Wednesday, December 07, 2016 02:27 - CONCLUSION: Bibasilar consolidation worse on the right. Maryellen Hobson MD Objective Remarks GENERAL: 86-year-old female, critically ill currently resting in bed in no acute distress on nonrebreather SKIN: Warm and dry. No rash HEAD: Atraumatic. Normocephalic. EYES: Pupils about 3 mm bilaterally and reactive. No scleral icterus. No injection or drainage. ENT: No nasal bleeding or discharge. Mucous membranes pink and moist. NECK: Trachea midline. No JVD. CARDIOVASCULAR: RRR. S1, S2 no S4. Without murmur RESPIRATORY: Significant diminished breath sounds right lung field. Few crackles appreciated in left lower lobe GASTROINTESTINAL: Abdomen soft, nontender, nondistended. Hypoactive bowel sounds appreciated MUSCULOSKELETAL: Extremities with trace bilateral lower extremity peripheral edema. Scar overlying medial aspect of right ankle without erythema or drainage. Noted edema in the left upper extremity and now right upper extremity 1+ NEUROLOGICAL: Cranial nerves II through grossly intact. Hard of hearing. Currently minimal withdrawal to pain bilateral upper lobe extremity. A/P Assessment and Plan NEURO/PSYCH: Acute encephalopathy Hard of hearing - hearing aid left ear Dementia disorder not otherwise specified Depression 12/07 - CT brain revealed chronic and small vessel ischemic changes Patient previously on Namenda 20 mg daily and Aricept 10 mg daily for dementia Patient previously on bupropion 150 mg daily, BuSpar 2.5 mg daily and Mirabreq 25 mg daily for depression Currently on Dilaudid 0.25-0.5 mg every 2 hours when necessary pain management On Ativan 1-1.5 mg every 2 hours when necessary anxiety On Decadron 4 mg IV daily Goals of care comfort RESP: Acute respiratory failure COPD with 2 L home oxygen requirement. Follows Dr. Pratt Tobacco abuse Bronchiectasis Moderate bilateral pleural effusions Orotracheally intubated by [facility]. ET tube pulled back as it was in right mainstem bronchus. Currently on 15 L nonrebreather for comfort Chest x-ray 12/06/16ET tube is at right mainstem. Opacification right lower lobe with complete, it right pleural effusion, tortuous appearing aorta CT pulmonary angiogram - No PE. Right lower lobe consolidation and bronchiectasis. LLL consolidation. Large mucous plug in right mainstem. On x-ray 12/11 CV: Cardiac arrest - reportedly presenting rhythm of Torsades/V tach per [facility]. Asystole in ED x2 Chronic systolic heart failure - ejection fraction 25% Elevated troponin Hypertension Patient had Torsades/Vtach per [facility] but no shockable rhythm in ED. Elevated troponin, cardiology consult noted Dr. Yancey. 12/07 echocardiogram LVEF 25%, hypokinesis of the mid distal, anteroseptal, anterior, anterior lateral and apical segments, moderate TR. Right atrium dilatation. CASEY 52 mmHg Off all vasopressors Currently in Decadron 4 mg daily with as needed Lasix 40 mg every 8 hours for pulmonary congestion GI: Chronic aspiration Dysphagia Hiatal hernia Colace/senna Senokot for bowel regimen to be held Patient is on a modified diet (pured with thickened liquids) at home. FEN/RENAL: Acute kidney injury - resolved Hypermagnesemia (following Magnesium administration) Monitor intake and output, monitor electrolytes, replace electrolytes as indicated Received IV contrast 12/07. Avoid nephrotoxins. ID: Acute aspiration pneumonia h/o recurrent UTI (uncertain MDRO history) Chest x-ray with right lower lobe infiltrate CTA chest with RLL consolidation and bronchiectasis. Empiric coverage with Zosyn, Vancomycin discontinued as currently comfort care Pertinent cultures Blood cultures 2 - 12/07 - no growth urine - 12/07 - no growth HEME: Leukocytosis Normocytic anemia Continue daily CBC ENDO: Acute hyperglycemia Hypothyroidism Low-dose insulin sliding scale with bedside glucose every 6 hours discontinued Takes nature thyroid 32.4 mg daily Prophylaxis - GI - Protonix discontinued - DVT -needed ACCESS: Right femoral central venous line placed by Dr. Ball 12/07 #6 left femoral art line placed 12/07 day #6 Critical Care: The total care time was 30 minutes. Time to perform other separately billable procedures was not included in the critical care time. Discuss with daughter. We'll transfer care to palliative care service in a.m. 12/14 Toño Vergara MD December 13, 2016 16:10
[2016-12-13] MEDS: CHLORHEXIDINE 0.12% (ORAL KIT) 15 ML CUP MT SCH (19:33)
[2016-12-14] VITALS (12 sets, daily range): BP systolic 90–139; BP diastolic 66–101; PULSE 76–90; RESP 20–25; TEMP 97.9–98.9; O2SAT 90–96
[2016-12-14] MEDS: HYDROmorphone HCL PF 1 MG/ML VIAL IV PUSH PRN ×7 (01:41→23:11)
[2016-12-14] MEDS: LORazepam 2 MG/ML VIAL IV PUSH PRN ×6 (01:42→23:11)
[2016-12-14] MEDS: CHLORHEXIDINE GLUCONATE 2 % 1 PACK (2 CLOTHS) TOP SCH (01:42)
[2016-12-14] MEDS: FUROSEMIDE 40 MG/4 ML VIAL IV PUSH PRN ×3 (03:49→23:10)
[2016-12-14] MEDS: CHLORHEXIDINE 0.12% (ORAL KIT) 15 ML CUP MT SCH ×2 (08:00→20:00)
[2016-12-14] MEDS: DEXAMETHASONE SOD PHOS 4 MG/ML VIAL IV PUSH SCH (08:04)
[2016-12-14] MEDS: SODIUM CHLORIDE 0.9% FLUSH 10 ML FLUSH SCH ×2 (08:06→21:00)
--- NOTE | 2016-12-14 11:55 | HHI.HCPN ---
Reason for visit a. To assist with evaluation and management of symptoms including: dyspnea, dysphagia, pain. b. To assist medical decision maker(s) with: better understanding of current medical conditions; weighing benefits/burdens of medical treatment options; making medical treatment decisions. . Subjective/Interval History Patient seen and examined in ICU. Spoke with son and daughter at bedside. Also present Lexi Thomas LCSW. Discussed with international trade compliance manager, Jeanie. Options reviewed for transfer out of ICU care center vs. hospital. Family desires to keep patient inpatient hospice here at [place] as the daughter lives 2[place]5 miles from here. Patient appears comfortable on NRB mask. Respirations are shallow. Hands remain warm. Family does not want to remove oxygen via NRB mask. Family has continued goal for peace and comfort. Family feels patient has been comfortable with current medications, daughter is concerned about leaving ICU setting. Reviewed current meds including Dilaudid (9 doses of 0.5mg IV in the past 24 hours) and Lorazepam (8 doses of 1mg IV in the past 24 hours). Family in agreement with plan to schedule ATC Dilaudid 0.75mg IV every 4 hours ATC and Lorazepam 1mg IV every 4 hours ATC for continued comfort. Family understands PRN Dilaudid and Lorazepam will be available every 2 hours PRN for breakthrough pain, anxiety or dyspnea. Daughter requests to see patient new room prior to transfer, brought her to room 725 she agrees with transfer to [facility]. Questions answered to their satisfaction. . Family/friend interactions See interval note. . Advance Directives Living Will: Never completed Health Care Surrogate: Never completed Durable Power of Shirt Finisher: Never completed Advance Directive Specifics Health Care Surrogate(s): Patient is currently incapacitated to make her own decisions, uncertain if she regained capacity. According to [place] statutes, health care proxy decision- making would fall to the majority of adult children. Patient has one son and one daughter. . Significant change in goals: NO CODE. Continue inpatient hospice, comfort measures only. Continue oxygen per family request. . Objective Vital Signs Date Time Temp Pulse Resp B/P Pulse Ox O2 Delivery O2 Flow Rate FiO2 12/14/16 08:00 98.3 81 25 90/77 90 12/14/16 08:00 81 12/14/16 08:00 91 Non-Rebreather 12/14/16 07:00 90 Non-Rebreather 15.00 12/14/16 06:00 82 12/14/16 04:00 83 12/14/16 04:00 97.9 85 21 95/80 90 12/14/16 02:00 82 12/14/16 00:00 98.9 87 21 96/83 92 12/14/16 00:00 80 12/13/16 22:00 86 12/13/16 20:00 97.4 86 31 99/85 93 12/13/16 20:00 84 12/13/16 19:44 89 Non-Rebreather 15.00 100 12/13/16 19:00 Non-Rebreather 15.00 90 12/13/16 18:00 83 12/13/16 16:00 75 12/13/16 16:00 97.4 83 27 102/89 93 12/13/16 14:00 80 12/13/16 12:00 97.3 71 23 83/68 95 12/13/16 12:00 71 Intake & Output 12/14/16 12/14/16 07:00 19:00 Intake Total 0 ml Output Total 1450 ml Balance -1450 ml IV Total 0 ml Output Urine Total 1450 ml # Bowel Movements 0 Physical Exam CONSTITUTIONAL/GENERAL: This is an elderly, frail appearing patient on 100% NRB mask. SKIN: Ecchymoses on upper/ lower extremities and chest. Left forearm with erythema, swelling and tenderness. Skin tear left UE, dressing intact. Dressing to left norton. Skin warm. ENT: Hard of hearing, wearing hearing aids in left ear CARDIOVASCULAR: Systolic murmur noted, regular. RESPIRATORY/CHEST: Shallow respirations. Scattered course breath sounds. GASTROINTESTINAL: Abdomen soft, non-tender, nondistended. No guarding. Bowel sounds hypoactive. GENITOURINARY: Without palpable bladder distension. Victoria catheter in place. MUSCULOSKELETAL: Bilateral upper extremities with edema. No mottling or clubbing. NEUROLOGICAL: Unresponsive. PSYCHIATRIC: Unresponsive. . Diagnostic Tests Result Diagram: 12/11/16 0250 12/11/16 0250 Imaging Last Impressions Chest X-Ray 12/11/16 0600 Signed Impressions: Service Date/Time: Sunday, December 11, 2016 04:42 - CONCLUSION: Collapse of the right lung new since previous study. Volume loss and now complete opacification of the right hemithorax Trevor Nieto MD Upper Extremity Ultrasound 12/09/16 Signed Impressions: Service Date/Time: Friday, December 09, 2016 17:03 - CONCLUSION: Extensive venous thrombosis as above. Vishal Livingston MD Shoulder X-Ray 12/09/16 Signed Impressions: Service Date/Time: Friday, December 09, 2016 15:35 - CONCLUSION: Postoperative and remote posttraumatic changes of the left proximal humerus. Vishal Livingston MD Head CT 12/07/16 Signed Impressions: Service Date/Time: Wednesday, December 07, 2016 02:21 - CONCLUSION: Chronic and small vessel ischemic changes without any evidence for acute hemorrhage or mass effect. Maryellen Hobson MD CT Angiography 12/07/16 Signed Impressions: Service Date/Time: Wednesday, December 07, 2016 02:27 - CONCLUSION: Bibasilar consolidation worse on the right. Maryellen Hobson MD . Procedures * 12/08/16- extubation * 12/07/16 - left femoral arterial line placement * 12/06/16 - right triple lumen central line placement * 12/06/16 - Cardiac arrest x 3, Intubation . Assessment and Plan Disease Oriented Problem List: (1) COPD (chronic obstructive pulmonary disease) (2) Cardiopulmonary arrest with successful resuscitation (3) PEA (Pulseless electrical activity) (4) Bradycardia (5) Pneumonia (6) DVT of axillary vein, acute left Symptom Scale: (1) Pain 0-10 Scale: Unable to quantify Comment: potential sources include prolonged hospitalization, COPD, cardiomyopathy, bedbound status. . (2) Dyspnea 0-10 Scale: Unable to quantify Comment: On 100% NRB mask (3) Weakness 0-10 Scale: Unable to quantify Comment: PPS 10 (4) Anxiety 0-10 Scale: Unable to quantify Comment: secondary to respiratory issues due to COPD Pertinent Non-Medical Issues Psychosocial: . Supported by son and daughter. Spiritual: Alevism josi, welcomes management supervisor support. Legal: Patient is currently incapacitated to make her own decisions, will not regain capacity. According to [place] statutes, health care proxy decision- making would fall to the majority of adult children. Patient has one son and one daughter. Ethical issues impacting care: No known concerns at this time. . Important Contacts * Qian Vargas, daughter/ co-HCP: [phone] (cell) or [phone] (work ) * Jerad Santana, son/co-HCP: [phone] . Prognosis Ms. Santana is an 86 year old female with dementia, oxygen dependent COPD admitted post cardiac arrest with underlying cardiomyopathy and COPD/ resp failure and pneumonia. Given her advanced age, comorbidities, repeat hospitalizations for recurrent UTI, aspiration pneumonia and sepsis her overall prognosis is poor. . Code Status: No Code Plan * Patient is currently incapacitated to make her own decisions, will not regain capacity. According to [place] statutes, health care proxy decision-making would fall to the majority of adult children. Patient has one son and one daughter, both (Qian and Jerad) want to serve as health care proxy decision makers. They have decided to transition to comfort care. * NO CODE (DNR/ DNI) * Transfer to [facility] for inpatient hospice care. PPS 10 prognosis hours to days. * SYMPTOMS: Pain/ Dyspnea/ Anxiety: Reviewed current meds including Dilaudid (9 doses of 0.5mg IV in the past 24 hours) and Lorazepam (8 doses of 1mg IV in the past 24 hours). Family in agreement with plan to schedule ATC Dilaudid 0.75mg IV every 4 hours ATC and Lorazepam 1mg IV every 4 hours ATC for continued comfort. Family understands PRN Dilaudid and Lorazepam will be available every 2 hours PRN for breakthrough pain, anxiety or dyspnea. Weakness: transition to comfort care. * Palliative care will continue to follow throughout hospital course to assist with symptom management and clarification of goals as needed while transitioning to Hospice.. . Attestation To help prompt me to consider important information that might be impacting today's encounter and assessment, information from prior notes written by myself or my colleagues may have been "brought forward" into today's note. My signature on this note, however, is an attestation that I personally performed the exam, history, and/or decision-making noted today, and, unless otherwise indicated, the interactions with patient, family, and staff as well as the review of records all occurred today. I also attest that the listed assessment and stated plan reflect my best clinical judgment today based on the combination of historical information, prior notes, and today's exam/ interactions. When time spent is documented, it refers only to time spent today by the signer, or if indicated, combined time spent today by collaborating physician/nurse practitioner. ETHAN CEBALLOS December 14, 2016 11:55
[2016-12-14] MEDS: LORazepam 2 MG/ML VIAL IV PUSH SCH ×3 (12:46→20:36)
[2016-12-14] MEDS: HYDROmorphone HCL PF 1 MG/ML VIAL IV PUSH SCH ×3 (12:47→20:37)
--- NOTE | 2016-12-14 13:30 | HHI.PR ---
Subjective Remarks .Now on a NRB mask FIO2 100 %. On hospice care and on Morphine with Ativan. .Has DVT in LUE Objective Vital Signs Date Time Temp Pulse Resp B/P Pulse Ox O2 Delivery O2 Flow Rate FiO2 12/14/16 12:00 98.4 76 21 135/74 94 115/101 12/14/16 12:00 76 12/14/16 10:00 80 12/14/16 08:00 98.3 81 25 90/77 90 12/14/16 08:00 81 12/14/16 08:00 91 Non-Rebreather 12/14/16 07:00 90 Non-Rebreather 15.00 12/14/16 06:00 82 12/14/16 04:00 83 12/14/16 04:00 97.9 85 21 95/80 90 12/14/16 02:00 82 12/14/16 00:00 98.9 87 21 96/83 92 12/14/16 00:00 80 12/13/16 22:00 86 12/13/16 20:00 97.4 86 31 99/85 93 12/13/16 20:00 84 12/13/16 19:44 89 Non-Rebreather 15.00 100 12/13/16 19:00 Non-Rebreather 15.00 90 12/13/16 18:00 83 12/13/16 16:00 75 12/13/16 16:00 97.4 83 27 102/89 93 12/13/16 14:00 80 I/O 12/13/16 12/13/16 12/13/16 12/14/16 12/14/16 12/14/16 07:00 15:00 23:00 07:00 15:00 23:00 Intake Total 0 ml 0 ml 0 ml Output Total 1200 ml 2900 ml 550 ml Balance -1200 ml -2900 ml -550 ml IV Total 0 ml 0 ml 0 ml Output Urine Total 1200 ml 2900 ml 550 ml # Bowel Movements 1 0 0 Result Diagram: 12/11/16 0250 12/11/16 0250 Objective Remarks This is an elderly thinly built white female, lethargic. HEENT: Head normocephalic. Throat is clear. NECK: Supple. No lymphadenopathy. CHEST: Distant breath sounds with expiratory wheezes and occasional crackles at bases. HEART: The heart sounds are irregular. S1 and S2. ABDOMEN: Soft and benign. Bowel sounds are active.No mass EXT No edema. Moves all well. Reflexes 1 + Assessment and Plan Assessment and Plan IMPRESSION 1. COPD with acute exacerbation 2. Basilar pneumonia 3. Anxiety 4. Acute respiratory failure 5. Aspiration pneumonia 6. Severe COPD with emphysema 7. Dementia 8. History of atrial fibrillation 9. Status post cardiac arrest. Plan : 1. Leave on NRB mask 100 % FIO2 2. D/C Diuretic. 3. Stop Anticoagulants 4. Nebs qid , duoneb. 5. Transfer to 7 th floor 6. Cont hospice to see 7. Comfort care per Family. Guillermo Pratt MD December 14, 2016 13:30
[2016-12-15] MEDS: HYDROmorphone HCL PF 1 MG/ML VIAL IV PUSH SCH ×4 (01:49→11:55)
[2016-12-15] MEDS: LORazepam 2 MG/ML VIAL IV PUSH SCH ×4 (01:49→11:54)
[2016-12-15] MEDS: CHLORHEXIDINE GLUCONATE 2 % 1 PACK (2 CLOTHS) TOP SCH (04:00)
[2016-12-15 05:30] LABS: HEMATOCRIT 40.2 % (35.0-46.0); MEAN CELL VOLUME 85.1 FL (80.0-100.0); MEAN CORPUSCULAR HEMOGLOBIN 25.9 PG (27.0-34.0); MEAN CORPUSCULAR HGB CONC 30.5 % (32.0-36.0); PLATELET COUNT 269 TH/MM3 (150-450); RED BLOOD COUNT 4.72 MIL/MM3 (4.00-5.30); RED CELL DISTRIBUTION WIDTH 17.2 % (11.6-17.2); REVIEW FLAG FINAL; WHITE BLOOD COUNT 25.9 TH/MM3 (4.0-11.0)
[2016-12-15 05:45] VITALS: BP 124/64; PULSE 113; RESP 20; TEMP 98.8; O2SAT 95
[2016-12-15] MEDS: CHLORHEXIDINE 0.12% (ORAL KIT) 15 ML CUP MT SCH (08:00)
[2016-12-15] MEDS: SODIUM CHLORIDE 0.9% FLUSH 10 ML FLUSH SCH (08:16)
[2016-12-15] MEDS: DEXAMETHASONE SOD PHOS 4 MG/ML VIAL IV PUSH SCH (08:16)
[2016-12-15 11:45] VITALS: O2SAT 93
[2016-12-15] MEDS: FUROSEMIDE 40 MG/4 ML VIAL IV PUSH PRN (12:00)
[2016-12-15 12:03] VITALS: BP 123/63; PULSE 122; RESP 26; TEMP 100.7; O2SAT 95
--- NOTE | 2016-12-15 12:18 | HHI.HCPN ---
Reason for visit a. To assist with evaluation and management of symptoms including: dyspnea, pain. b. To assist medical decision maker(s) with: better understanding of current medical conditions; weighing benefits/burdens of medical treatment options; making medical treatment decisions. . Subjective/Interval History Patient seen and examined in ICU. Spoke with son and daughter at bedside. Also present Lexi Thomas LCSW, Areli (chaplains). Discussed with nurse, Suni and charge nurse, Eryn. Daughter seems to be questioning decision to leave patient is hospital, [facility] placement - after conversation with son and daughter they have decided to leave the patient here at [facility]. PPS 10 prognosis hours to days. Provided education to family regarding end of life care changes. Patient appears comfortable on NRB mask. Respirations are more labored today. Being medicated during my visit. Family does not want to remove oxygen via NRB mask. Family has continued goal for peace and comfort. Family feels patient has not been as comfortable today, requests Dilaudid be given every 2 hours ATC. Discussed with charge nurse, who agrees with plan for comfort meds. Patient has not had any PRN Lorazepam or Dilaudid since transfer. No obvious pain during my visit, face relaxed. Respirations mildly labored, using accessory muscles to breath. Family understands PRN Dilaudid will be available every 1 hour and Lorazepam will be available every 2 hours PRN for breakthrough pain, anxiety or dyspnea. PRN Lasix available, given during my visit. Questions answered to their satisfaction. . Family/friend interactions See interval note. . Advance Directives Living Will: Never completed Health Care Surrogate: Never completed Durable Power of Pilot Instructor: Never completed Advance Directive Specifics Health Care Surrogate(s): Patient is currently incapacitated to make her own decisions, uncertain if she regained capacity. According to [place] statutes, health care proxy decision- making would fall to the majority of adult children. Patient has one son and one daughter. . Significant change in goals: NO CODE. Comfort measures, inpatient hospice. , Objective Vital Signs Date Time Temp Pulse Resp B/P Pulse Ox O2 Delivery O2 Flow Rate FiO2 12/15/16 11:28 Non-Rebreather 15.00 100 12/15/16 05:45 98.8 113 20 124/64 95 12/15/16 04:05 18 12/15/16 04:04 18 12/15/16 00:05 93 Non-Rebreather 15.00 100 12/14/16 21:51 Non-Rebreather 15.00 12/14/16 20:30 98.3 89 20 139/70 93 12/14/16 20:15 90 12/14/16 16:49 98.2 76 20 129/66 94 12/14/16 13:40 97.9 81 20 116/67 96 Intake & Output 12/15/16 12/15/16 06:59 18:59 Intake Total 0 ml Output Total 950 ml Balance -950 ml Intake Oral 0 ml Output Urine Total 950 ml Physical Exam CONSTITUTIONAL/GENERAL: This is an elderly, frail appearing patient on 100% NRB mask. SKIN: Ecchymoses on upper/ lower extremities and chest. Left forearm with erythema, swelling and tenderness. Skin tear left UE, dressing intact. Dressing to left norton. Skin warm. CARDIOVASCULAR: Systolic murmur, regular. RESPIRATORY/CHEST: Mildly labored respirations, using accessory muscles to breathe. GASTROINTESTINAL: Abdomen soft, non-tender, nondistended. No guarding. Bowel sounds hypoactive. GENITOURINARY: Without palpable bladder distension. Victoria catheter in place. MUSCULOSKELETAL: Bilateral upper extremities with weeping edema. NEUROLOGICAL: Unresponsive. PSYCHIATRIC: Unresponsive. . Diagnostic Tests Laboratory Laboratory Tests Test 12/15/16 04:05 White Blood Count 25.9 TH/MM3 (4.0-11.0) Red Blood Count 4.72 MIL/MM3 (4.00-5.30) Hemoglobin 12.2 GM/DL (11.6-15.3) Hematocrit 40.2 % (35.0-46.0) Mean Corpuscular Volume 85.1 FL (80.0-100.0) Mean Corpuscular Hemoglobin 25.9 PG (27.0-34.0) Mean Corpuscular Hemoglobin 30.5 % Concent (32.0-36.0) Red Cell Distribution Width 17.2 % (11.6-17.2) Platelet Count 269 TH/MM3 (150-450) Mean Platelet Volume 10.3 FL (7.0-11.0) Result Diagram: 12/15/16 5131 12/11/16 0250 Imaging Last Impressions Chest X-Ray 12/11/16 0600 Signed Impressions: Service Date/Time: Sunday, December 11, 2016 04:42 - CONCLUSION: Collapse of the right lung new since previous study. Volume loss and now complete opacification of the right hemithorax Trevor Nieto MD Upper Extremity Ultrasound 12/09/16 0000 Signed Impressions: Service Date/Time: Friday, December 09, 2016 17:03 - CONCLUSION: Extensive venous thrombosis as above. Vishal Livingston MD Shoulder X-Ray 12/09/16 0000 Signed Impressions: Service Date/Time: Friday, December 09, 2016 15:35 - CONCLUSION: Postoperative and remote posttraumatic changes of the left proximal humerus. Vishal Livingston MD Head CT 12/07/16 0000 Signed Impressions: Service Date/Time: Wednesday, December 07, 2016 02:21 - CONCLUSION: Chronic and small vessel ischemic changes without any evidence for acute hemorrhage or mass effect. Maryellen Hobson MD CT Angiography 12/07/16 0000 Signed Impressions: Service Date/Time: Wednesday, December 07, 2016 02:27 - CONCLUSION: Bibasilar consolidation worse on the right. Maryellen Hobson MD . Procedures * 12/08/16- extubation * 12/07/16 - left femoral arterial line placement * 12/06/16 - right triple lumen central line placement * 12/06/16 - Cardiac arrest x 3, Intubation . Assessment and Plan Disease Oriented Problem List: (1) COPD (chronic obstructive pulmonary disease) (2) Cardiopulmonary arrest with successful resuscitation (3) PEA (Pulseless electrical activity) (4) Bradycardia (5) Pneumonia (6) DVT of axillary vein, acute left Symptom Scale: (1) Pain 0-10 Scale: Unable to quantify Comment: potential sources include prolonged hospitalization, COPD, cardiomyopathy, bedbound status. . (2) Dyspnea 0-10 Scale: Unable to quantify Comment: On 100% NRB mask (3) Weakness 0-10 Scale: Unable to quantify Comment: PPS 10 (4) Anxiety 0-10 Scale: Unable to quantify Comment: secondary to respiratory issues due to COPD Pertinent Non-Medical Issues Psychosocial: . Supported by son and daughter. Spiritual: Nondenominational josi, welcomes banking teacher support. Legal: Patient is currently incapacitated to make her own decisions, will not regain capacity. According to [place] statutes, health care proxy decision- making would fall to the majority of adult children. Patient has one son and one daughter. Ethical issues impacting care: No known concerns at this time. . Important Contacts * Qian Vargas, daughter/ co-HCP: [phone] (cell) or [phone] (work ) * Jerad Santana, son/co-HCP: [phone] . Prognosis Ms. Santana is an 86 year old female with dementia, oxygen dependent COPD admitted post cardiac arrest with underlying cardiomyopathy and COPD/ resp failure and pneumonia. Given her advanced age, comorbidities, repeat hospitalizations for recurrent UTI, aspiration pneumonia and sepsis. PPS 10 prognosis hours to days. . Code Status: No Code Plan * Patient is currently incapacitated to make her own decisions, will not regain capacity. According to [place] statutes, health care proxy decision-making would fall to the majority of adult children. Patient has one son and one daughter, both (Qian and Jerad) want to serve as health care proxy decision makers. They have decided to transition to comfort care. * NO CODE (DNR/ DNI) * PPS 10 prognosis hours to days. * Discussed with hospice nurse, Suni and charge nurse, Eryn. * Long conversation with son and daughter to provide medical update including prognosis of hours to days. Reviewed physical changes noted today. Reviewed plan for symptom management. Will leave Lasix PRN for now, as the benefit may be minimal at this time, pt is dying. * SYMPTOMS: Pain: due to underlying heart, lung disease. Bedbound status and prolonged hospitalization. Increase Dilaudid 0.5mg IV every 2 hours ATC per family request. PRN Dilaudid available every 1 hour PRN BTP/ dyspnea. Anxiety: Lorazepam 1mg IV every 2 hours ATC. Has PRN Lorazepam every 2 hours PRN anxiety / SOB. Has PRN Lasix available. Daughter requests antibiotic ointment to skin tears, ordered. * Palliative care will continue to follow throughout hospital course to assist with symptom management. . Time Spent Total Floor Time (mins): 60 Face to Face Time (mins): 45 >50% Counseling/Coord of Care: Yes Attestation To help prompt me to consider important information that might be impacting today's encounter and assessment, information from prior notes written by myself or my colleagues may have been "brought forward" into today's note. My signature on this note, however, is an attestation that I personally performed the exam, history, and/or decision-making noted today, and, unless otherwise indicated, the interactions with patient, family, and staff as well as the review of records all occurred today. I also attest that the listed assessment and stated plan reflect my best clinical judgment today based on the combination of historical information, prior notes, and today's exam/ interactions. When time spent is documented, it refers only to time spent today by the signer, or if indicated, combined time spent today by collaborating physician/nurse practitioner. ETHAN CEBALLOS December 15, 2016 12:18
[2016-12-15] MEDS ORDERED: NEOMYCIN/POLYMYXIN/BACITRACIN OINT 15 GM TUBE TOPICAL SCH (12:30)
[2016-12-15] MEDS ORDERED: HYDROmorphone HCL PF 1 MG/ML VIAL IV PUSH PRN ×2 (13:00)
[2016-12-15] MEDS ORDERED: LORazepam 2 MG/ML VIAL IV PUSH SCH (14:00)
[2016-12-15] MEDS ORDERED: HYDROmorphone HCL PF 1 MG/ML VIAL IV PUSH SCH (14:00)
== END 2016-12-15 17:26 | disposition expired | DRG 871 ==
LOC: NEPC 23:20 → NEDA 12-07 00:11 → HIMW 12-07 02:35 → HOCB 12-14 13:34
PROVIDERS: ADMIT Family Medicine; ATTEND Family Medicine
PROC: 5A1945Z Respiratory Ventilation, 24-96 Consecutive Hours (ICD-10-PCS; principal; 2016-12-07)
PROC: 04HY32Z Insertion of Monitoring Device into Lower Artery, Percutaneous Approach (ICD-10-PCS; 2016-12-07)
PROC: 06HM33Z Insertion of Infusion Device into Right Femoral Vein, Percutaneous Approach (ICD-10-PCS; 2016-12-07)
DX: A41.9 Sepsis, unspecified organism (principal); J96.01 Acute respiratory failure with hypoxia; I46.9 Cardiac arrest, cause unspecified; J69.0 Pneumonitis due to inhalation of food and vomit; R65.21 Severe sepsis with septic shock; G93.40 Encephalopathy, unspecified; N17.9 Acute kidney failure, unspecified; E87.2 Acidosis; R13.10 Dysphagia, unspecified; I42.9 Cardiomyopathy, unspecified; J44.1 Chronic obstructive pulmonary disease with (acute) exacerbation; I50.22 Chronic systolic (congestive) heart failure; I47.2 Ventricular tachycardia; I82.A12 Acute embolism and thrombosis of left axillary vein; E83.41 Hypermagnesemia; I11.0 Hypertensive heart disease with heart failure; Z99.81 Dependence on supplemental oxygen; E11.65 Type 2 diabetes mellitus with hyperglycemia; Z86.711 Personal history of pulmonary embolism; H91.90 Unspecified hearing loss, unspecified ear; I48.91 Unspecified atrial fibrillation; R32 Unspecified urinary incontinence; I44.7 Left bundle-branch block, unspecified; J98.09 Other diseases of bronchus, not elsewhere classified; K21.9 Gastro-esophageal reflux disease without esophagitis; I08.1 Rheumatic disorders of both mitral and tricuspid valves; E83.42 Hypomagnesemia; F32.9 Major depressive disorder, single episode, unspecified; K44.9 Diaphragmatic hernia without obstruction or gangrene; D69.6 Thrombocytopenia, unspecified; D64.9 Anemia, unspecified; E03.9 Hypothyroidism, unspecified; F41.9 Anxiety disorder, unspecified; F03.90 Unspecified dementia, unspecified severity, without behavioral disturbance, psychotic disturbance, mood disturbance, and anxiety; Z51.5 Encounter for palliative care; Z66 Do not resuscitate; Z74.01 Bed confinement status; Z87.891 Personal history of nicotine dependence; Z96.641 Presence of right artificial hip joint
CPT/HCPCS: 36556; 36600; 70450; 71010; 71275; 73030; 76937; 80048; 80053; 80202; 81001; 82310; 82435; 82550; 82565; 82805; 82947; 82948; 83605; 83735; 83880; 84100; 84132; 84295; 84484; 84520; 85007; 85025; 85027; 85379; 85610; 85730; 87040; 87086; 87186; 87205; 87641; 93005; 93306; 93971; 94002; 94003; 94150; 94640; 94664; 94667; 99292; C9113; J0131; J0171; J0456; J0461; J1100; J1170; J1644; J1720; J1815; J1885; J1940; J2060; J2212; J2250; J2543; J3010; J3370; J3480; J7030; J7040; J7050; Q9967